=== PATIENT | female | born 1930 | race Caucasian/White ===

== ENCOUNTER 2016-08-26 11:28 | Inpatient (IN) | payer MEDICARE ==
[~2016-08-26] VITALS: Ht 162.6 cm; Wt 43.0 kg
[~2016-08-26 11:28] MED LIST: ACET-2321 PO; BISA10SU8 RECTALLY; BUTA-253 PO; CALC500T7 PO; DOCU-168 PO; GABA-336 PO; HYDR-4246 PO; LATA2.5D7 BOTH EYES; MAGN30OR PO; MAGN400O4 PO; ONDA-55 PO; ONDA4VIA23 IV; TRAM50TA4 PO
--- NOTE | 2016-08-26 11:30 | NUR ---
Admit Pt. admitted to Rm. 171 on IRU from the Medical Unit at this time. Pt. is pivoted to the bed x2 assist with gait belt. VS stable and pt. is on RA. Pt. is very pleasant and alert. Pt. belongings noted include glasses and one necklace. Bed alarm is on. Will continue to monitor.
--- OUTSIDE RECORDS SUMMARY | 2016-08-26 12:51 | XMS REPORT | Continuity of Care Document ---
Author Author [facility] Organization [facility] Address Unknown Phone Unavailable Support Name Relationship Address Phone YANE ALEXANDER MD Caregiver [address] [place] [address] Unavailable NILSA SANTOS MD Caregiver [address] [place] [address] [place] [address] Unavailable VINEET ADORNO MD Caregiver [address] [facility] [place] [address] Unavailable AYLEEN IZAGUIRRE MD Caregiver [address] [place] [id number] Unavailable ARIANA SWANN Next Of Kin [address] [place] [id number] Insurance Providers Guarantor Esperanza Laird Address [address] [place] [address] Email DENIED/NO TO PT PORT 16 Payer Medicare Policy Number [id number] Subscriber's Name Esperanza Laird Relationship 18 Self Payer [facility] Policy Number [id number] Subscriber's Name Esperanza Laird Relationship 18 Self Advance Directives Directive Response Recorded Date/Time Ordered Resuscitation Status Full Code 08/24/16 3:47am Problems Active Problems Medical Problem Onset Date Status Chronic back pain Unknown Chronic Compression fracture Unknown Acute Fall at home Unknown Acute Generalized weakness Unknown Acute HTN (hypertension) Unknown Chronic Hypokalemia Unknown Resolved Inability to perform activities of daily living Unknown Acute UTI (urinary tract infection) Unknown Acute Weakness of both lower extremities Unknown Acute Past Problems Medical Problem Onset Date Concussion Unknown Confusion Unknown Head injury Unknown Scalp laceration Unknown Weakness Unknown Medications Current Home Medications Medication Dose Units Route Directions Days Qty Instructions Start Date Acetaminophen (Tylenol) 325 Mg Tablet 325 Mg Oral Every 5 Hours as needed for Pain 30 Tablet 08/26/16 Bisacodyl 10 Mg Supp.rect 10 Mg Rectally Daily as needed for Constipation 30 08/26/16 Butalb/Acetaminophen/Caffeine (Lquuyh-Boqtwduv-Woav 50-325-40) 1 Each Tablet 1 Tab Oral Q6h/0300,0900,1500,2100 as needed for Headache 30 Tablet 08/26/16 Calcium Carbonate (Tums) 200 Mg Tab.chew 1,000 Mg Oral As Needed as needed for Dyspepsia 30 08/26/16 Docusate Sodium (Colace) 100 Mg Capsule 100 Mg Oral Twice A Day 30 Capsule 08/26/16 Gabapentin 100 Mg Capsule 200 Mg Oral Bedtime 08/23/16 Hydrocodone/Acetaminophen ([place] 5-325 Tablet) 5-325 Tablet 1 Tab Oral Every 6 Hours as needed for Pain 10 Tablet 08/23/16 Latanoprost 2.5 Ml Drops 1 Drop Both Eyes Bedtime 08/23/16 Magnesium Hydroxide (Milk Of Magnesia) 400 Mg/5 Ml Oral.susp 30 Ml Oral Daily as needed for Constipation 1 Bottle 08/26/16 Magnesium Hydroxide/Al Hydrox (Mag-Al Liquid) 30 Ml Suspension 30 Ml Oral Every 3 Hours as needed for Indigestion 1 Bottle 08/26/16 Ondansetron Hcl 4 Mg Tablet 4 Mg Oral Q6h/0300,0900,1500,2100 as needed for Nausea 10 Tablet 08/26/16 Ondansetron Hcl/Pf (Ondansetron Hcl 4 Mg/2 Ml Vial) 4 Mg/2 Ml Vial 4 Mg Intraven Every 6 Hours as needed for Nausea &/Or Vomiting 6 Vial Tramadol Hcl 50 Mg Tablet 50 Mg Oral Four Times Daily as needed for Pain 08/23/16 Past Home Medications Medication Directions Ordered Status Acetaminophen (Tylenol) 325 Mg Tablet, 06/07/15 Discontinued Amlodipine Besylate/Benazepril (Amlodipine-Benazepril 5-20 Mg) 1 Each Capsule, 1 Cap Oral Bedtime 03/03/14 Discontinued Aspirin (Aspirin Ec) 81 Mg Tablet.dr, 1 Tab Oral Daily 05/11/15 Discontinued Gabapentin 100 Mg Capsule, 1 Cap Oral Bedtime 05/10/15 Discontinued Naproxen Sodium (Aleve) 220 Mg Capsule, 1 Cap Oral Twice A Day 05/11/15 Discontinued Social History Social History Problem Response Recorded Date/Time Onset Date Status Reason for Hospitalization Concussion 2016 11:06am Not Applicable Not Applicable Hx Substance Use No 08/24/2016 1:57am Not Applicable Not Applicable Hx Alcohol Use No 08/24/2016 1:57am Not Applicable Not Applicable Has the pt used tobacco in the last 12 months No 06/09/2015 8:14pm Not Applicable Not Applicable Tobacco Usage none 06/07/2015 8:04pm Not Applicable Not Applicable Query Response Start Date Stop Date Smoking Status Never smoker Hospital Discharge Instructions Instructions: Care Instructions: Reason for Hospitalization: Concussion Discharge Diet: Regular Discharge Activity: Up with assistance, walker as needed Follow Up Appointments: Dr Izaguirre to Follow on IRU for rehab care Hopsitalist to follow for medical care Dr Santos 1 week post discharge from IRU Pending Lab / Results: No Pending Lab Wound/Incision Care: Keep stables clean and dry. Remove in 4-7 days Pain Scale Utilized to Educate Patient: 0-10 Pain Scale Pain Management/Treatment: [place]/Fioricet/tylenol as needed. Expected Signs/Symptoms: Improvement of strength and funcitional status. Decreasing nausea and dizziness. Notify Physician If: Temp >100.4. Intractable nausea/vomiting. During Business Hours:: Nursing staff at IRU After Business Hours:: Nursining staff at IRU Condition at time of discharge: Good Plan of Care Discharge Date 08/26/16 12:01pm Disposition 03 TO SNU NOT [facility] (SNF) Instructions/Education Provided Concussion (DC) Prescriptions See Medication Section Care Plan and Goals See Discharge Instructions Section Functional Status Query Response Date Recorded Mobility Status Ambulatory w/assist 2016 11:06am Assistive Devices Standard Walker 2016 11:06am Activity Limitations Weakness Pain 2016 11:06am Feeding Ability Independent 2016 11:06am Toileting Ability Assist 2016 11:06am Grooming Ability Assist 2016 11:06am Dressing Ability Assist 2016 11:06am Driving Ability Dependent 2016 11:06am Housework Ability Assist 2016 11:06am Meal Preparation Ability Assist 2016 11:06am Stair Climbing Ability Assist 2016 11:06am Ability to complete ADL's impeded by Impaired Mobility Change in Cognition 2016 11:06am Cognitive/Perceptual Impairments Impaired vision Acute confusion 2016 11:06am Visual Assistive Devices Glasses 2016 10:25am Preferred Method of Learning Listening 2016 10:25am Allergies, Adverse Reactions, Alerts Allergen Type Severity Reaction Status Last Updated Sulfamethoxazole Allergy Unknown UNKNOWN Active 08/23/16 Trimethoprim Allergy Unknown Active 08/23/16 Immunizations Immunization Event Date Type Not Given Reason Dose Number Lot Number Pick Up Man VIS Given Td (adult), adsorbed 08/23/16 Administered 1 [id number] zhouwu Query Response on File Recorded Date/Time Hx Influenza Vaccination Y 201406/09/15 8:14pm Hx Pneumococcal Vaccination No 06/09/15 8:14pm Hx Influenza Vaccination Y 201406/09/15 8:14pm Influenza Vaccine Hx 02/201608/24/16 1:21pm Tetanus Diptheria Vaccine History 08/23/16 08/24/16 1:57am Tdap Vaccine Hx UNKNOWN 08/23/16 2:46pm Vital Signs Acute Vital Signs Vital Response Date/Time Temperature (Fahrenheit) 98.0 deg F (96.8 - 99.1) 2016 7:39am Temperature (Calculated Celsius) 36.25412 degrees C (36.0 - 37.3) 2016 7:39am Pulse Rate (adult) 64 bpm (60 - 100) 2016 8:02am Respiratory Rate 18 breaths/min (10 - 20) 2016 8:02am O2 Sat by Pulse Oximetry 98 % (90 - 100) 2016 7:39am Oxygen Delivery Method Room Air 2016 7:39am Blood Pressure 175/75 mm Hg 2016 7:39am Blood Pressure Source Automatic Cuff 2016 7:39am Height (Feet) 5 feet 2016 10:46am Height (Inches) 4.00 inches 2016 10:46am Weight (Kilograms) 44.000 kg 2016 7:39am Body Mass Index (BMI) 16.0 08/24/2016 4:50am Results Laboratory Results Test Name Result Units Flags Reference Collection Date/Time Result Date/ Time Comments White Blood Count 9.5 T/MM3 4.5-11.0 08/24/2016 6:12am 08/24/2016 6: 31am Red Blood Count 3.49 M/MM3 L 4.00-5.20 08/24/2016 6:12am 08/24/2016 6: 31am Hemoglobin 9.7 GM/DL L 12-16 08/24/2016 6:1208/24/2016 6:31am Hematocrit 30.5 % L 36-46 08/24/2016 6:1208/24/2016 6:31am Mean Corpuscular Volume 87.4 UM3 80-100 08/24/2016 6:1208/24/2016 6: 31am Mean Corpuscular Hemoglobin 27.8 UUG 26-34 08/24/2016 6:122016 6:31am Mean Corpuscular Hemoglobin Concent 31.8 GM/DL 31-37 08/24/2016 6:1208/24/2016 6:31am RDW Standard Deviation 56.6 FL H 36.9-50.2 08/24/2016 6:08/24/2016 6:31am Platelet Count 158 T/MM3 130-400 08/24/2016 6:1208/24/2016 6:31am Mean Platelet Volume 11.4 UM3 9.4-12.4 08/24/2016 6:1208/24/2016 6: 31am Neutrophils % (Manual) 77.0 % H 33-66 08/24/2016 6:1208/24/2016 6: 52am Band Neutrophils % 3.0 % 0-6 08/24/2016 6:1208/24/2016 6:52am Lymphocytes % (Manual) 7.0 % L 23-45 08/24/2016 6:1208/24/2016 6: 52am Monocytes % (Manual) 13.0 % H 0-9.0 08/24/2016 6:1208/24/2016 6:52am Metamyelocytes % 4.0 % H 0-0 08/24/2016 1:46am 08/24/2016 2:18am Myelocytes % 1.0 % H 0-0 08/24/2016 1:46am 08/24/2016 2:18am Reactive Lymphocytes % 3.0 % H 0-0 08/24/2016 1:46am 08/24/2016 2:18am Band Neutrophils # 0.3 T/MM3 08/24/2016 6:12am 08/24/2016 6:52am Absolute Neutrophils (Manual) 7.3 T/MM3 1.8-7.7 08/24/2016 6:12am 08/24 6:52am Lymphocytes # (Manual) 0.7 T/MM3 L 1-4.8 08/24/2016 6:12am 08/24/2016 6: 52am Monocytes # (Manual) 1.2 T/MM3 H 0-0.8 08/24/2016 6:12am 08/24/2016 6: 52am Metamyelocytes # 0.5 T/MM3 08/24/2016 1:46am 08/24/2016 2:18am Myelocytes # 0.1 T/MM3 08/24/2016 1:46am 08/24/2016 2:18am Reactive Lymphocytes # 0.3 T/MM3 H 0-0 08/24/2016 1:46am 08/24/2016 2: 18am Nucleated Red Blood Cells 1 08/24/2016 1:46am 08/24/2016 2:18am Red Cell Morphology Comment ABNORMAL 08/24/2016 6:12am 08/24/2016 6 :52am Anisocytosis 1+ 08/24/2016 6:12am 08/24/2016 6:52am Poikilocytosis 1+ 08/24/2016 6:12am 08/24/2016 6:52am Hypochromasia 1+ 08/24/2016 1:46am 08/24/2016 2:18am Hardeep Cells 1+ 08/24/2016 6:12am 08/24/2016 6:52am Helmet Cells 1+ 08/24/2016 6:12am 08/24/2016 6:52am Icterus Index < 2 0-7 08/24/2016 6:1208/24/2016 6:35am Chemistry Specimen Hemolysis < 15 0-25 08/24/2016 6:1208/24/2016 6 :35am 0-25: Specimen Exhibited No Hemolysis. Turbidity < 20 0-20 08/24/2016 6:12am 08/24/2016 6:35am Sodium Level 136 MEQ/L 134-144 08/24/2016 6:12am 08/24/2016 6:35am Potassium Level 3.6 MEQ/L 3.6-5 08/24/2016 6:12am 08/24/2016 6:35am Chloride Level 102 MEQ/L 98-107 08/24/2016 6:1208/24/2016 6:35am Carbon Dioxide Level 23 MEQ/L 22-30 08/24/2016 6:1208/24/2016 6: 35am Anion Gap 11 MEQ/L 5-15 08/24/2016 6:1208/24/2016 6:35am Blood Urea Nitrogen 14.0 MG/DL 7-17 08/24/2016 6:1208/24/2016 6: 35am Creatinine 0.6 MG/DL L 0.7-1.2 08/24/2016 6:1208/24/2016 6:35am BUN/Creatinine Ratio 23 RATIO 6-26 08/24/2016 6:1208/24/2016 6:35am Glomerular Filtration Rate Calc 95 08/24/2016 6:1208/24/2016 6: 35am Glucose Level 113 MG/DL H 65-110 08/24/2016 6:1208/24/2016 6:35am Calculated Osmolality 264 MOSM/KG 261-280 08/24/2016 6:08/24/2016 6:35am Calcium Level 8.5 MG/DL 8.4-10.2 08/24/2016 6:1208/24/2016 6:35am Total Bilirubin 1.30 MG/DL 0.20-1.30 08/24/2016 1:4608/24/2016 1: 59am Alkaline Phosphatase 68 U/L 38-126 08/24/2016 1:4608/24/2016 1:59am Total Protein 6.8 G/DL 6.3-8.2 08/24/2016 1:4608/24/2016 1:59am Albumin 4.1 G/DL 3.5-5.0 08/24/2016 1:4608/24/2016 1:59am Globulin 2.7 G/DL 2.4-3.6 08/24/2016 1:4608/24/2016 1:59am Albumin/Globulin Ratio 1.5 RATIO 1.1-2.2 08/24/2016 1:46am 08/24/2016 1 :59am Aspartate Amino Transf (AST/SGOT) 36 U/L 14-36 08/24/2016 1:46am 2016 1:59am Alanine Aminotransferase (ALT/SGPT) 24 U/L 9-52 08/24/2016 1:46am 08/24 1:59am Plasma Lactate 2.1 MMOL/L 0.6-2.2 08/24/2016 1:46am 08/24/2016 1:58am Urine Collection Type CLEANCATCH-MIDSTREAM 08/24/2016 3:02am 2016 3:04am Urine Color YELLOW YELLOW 08/24/2016 3:02am 08/24/2016 3:04am Urine Turbidity CLEAR CLEAR 08/24/2016 3:02am 08/24/2016 3:04am Urine Specific [place] 1.015 1.015-1.025 08/24/2016 3:02am 2016 3:04am Urine pH 7.0 5.0-8.0 08/24/2016 3:02am 08/24/2016 3:04am Urine Leukocyte Esterase NEGATIVE NEGATIVE 08/24/2016 3:02am 2016 3:04am Urine Nitrite NEGATIVE NEGATIVE 08/24/2016 3:02am 08/24/2016 3:04am Urine Protein NEGATIVE NEGATIVE 08/24/2016 3:02am 08/24/2016 3:04am Urine Glucose (UA) NEGATIVE NEGATIVE 08/24/2016 3:02am 08/24/2016 3: 04am Urine Ketones 1+ A NEGATIVE 08/24/2016 3:02am 08/24/2016 3:04am Urine Urobilinogen 0.2 EU/DL NORMAL 08/24/2016 3:02am 08/24/2016 3: 04am Urine Bilirubin NEGATIVE NEGATIVE 08/24/2016 3:02am 08/24/2016 3: 04am Urine Blood TRACE-LYSED A NEGATIVE 08/24/2016 3:02am 08/24/2016 3: 04am Urinalysis Comment MICROSCOPIC NOT IND. 08/24/2016 3:02am 2016 3:04am Name: ESPERANZA LAIRD Unit #: [id number] : 1930 Sex: F Admit Date: 08/24/16 Loc / Svc: MED Discharge Date: DIAGNOSTIC IMAGING REPORT Report #: [id number] [facility] LUZ Smith Indication: ITS.REASON: Continued confusion after fall (interval change) PROCEDURE: CT HEAD W/O CONTRAST: Encounter: Initial Comparison: 08/24/2016 Technique: Axial CT images through the head were performed without contrast. Iterative Reconstruction dose reducing technique was utilized. FINDINGS: The ventricles are of normal size, shape, and contour for the patient's age. There are scattered areas of low attenuation in the white matter which most likely represent changes from chronic microvascular ischemia. The brainstem, cerebellum, and cerebral hemispheres otherwise have a normal morphology and CT attenuation. There is no evidence of midline displacement. No hemorrhage, signs of acute territorial stroke, mass effect, mass lesions, or edema is evident. IMPRESSION: 1. Severe cerebral and cerebellar atrophy. 2. Chronic microvascular ischemia. 3. No evidence of acute intracranial abnormality. . Procedures Procedure Status Date Provider(s) Extremity study Completed 08/07/16 Rpr s/n/ax/gen/trnk 2.5cm/< Completed 08/23/[address] head/brain w/o dye Completed 08/23/16 Immunization admin Completed 08/23/16 Td vacc no presv 7 yrs+ im Completed 08/23/16 Emergency dept visit Completed 08/23/16 Encounters Encounter Location Arrival/Admit Date Discharge/Depart Date Attending Provider Discharged Inpatient [facility] 08/24/16 3:43am 08/26/16 12:01pm AYLEEN IZAGUIRRE MD Departed Emergency Room [facility] 08/23/16 1:51pm 08/23/16 4: 40pm AYLEEN IZAGUIRRE MD Registered Clinic [facility] 08/07/16 3:45pm NILSA SANTOS MD
[2016-08-26 13:18] VITALS: Ht 162.6 cm; Wt 43.0 kg
[2016-08-26 13:27] VITALS: BP 154/75; PULSE 67; RESP 18; TEMP 97.5; O2SAT 97
[2016-08-26] MEDS ORDERED: ONDANSETRON 4mg/2ml INJECTION IV PRN (15:00)
[2016-08-26] MEDS ORDERED: ACETAMINOPHEN 325 MG TABLET PO PRN (15:00)
[2016-08-26] MEDS ORDERED: BUTALBITAL/APAP/CAFFEINE TABLET PO PRN (15:00)
[2016-08-26] MEDS: HYDROCODONE/APAP 5 mg/325 mg TABLET PO PRN (15:10)
--- NOTE | 2016-08-26 15:27 | STDAILYN ---
ST Daily Note Date/Time DATE: 08/26/16 TIME: 14:55 Subjective Comment Pt was confused and attempting to get out of bed when DIRECTOR [employer] entered the room. Pt was reoriented and showed how to use the call light. She was confused but alert. Orientations: Person, Alert, Cooperative Chief Complaint: encephalopathy, post concussive syndrome Pain: Yes (My bottom hurts, I need a pain pill.) Was Patient Education Provided: Yes Person(s) Educated: Patient Education Subject: Treatment Plan Instruction Understanding Demo: Pt. verbalizes understand *Speech Therapy Impressions Pt was alert and repositioned in bed for assessment. Subtests I-V of [place] Information Processing Assessment were administered. Pt responded to conversational level speech in a quiet one to one setting. Results of assessment indicated profound defict in immediate memory, severe impairment in spatial orientation. Recent memory, time orientation for recent and remote memory were moderately impaired. Pt became fatigue and reported that she could not answer any more questions. RIPA will be completed on 08/27/16. ST Treatment Plan: Cognitive Linguistic Tx ST Treatment Plan Frequency: five times per week (30 minutes) Treatment Plan Duration: one week Plan of Care Comment: Complete evaluation and add goals on 08/27. Start Treatment 1: 14:15 (1440) Stop Treatment 1: 14:40 Treatment Duration : ST Treatment Charge: Speech Eval Minutes of Individual Therapy: 25 ST FIM Comprehension Ability: 3 Moderate Assistance Social Interaction: 4 Minimal Assistance Memory: 2 Maximum Assistance Expression Ability: 6 Modified [place] MEGAN ROBERTSON MS [facility]-DIRECTOR [employer] Aug 26, 2016 15:04
[2016-08-26 16:32] VITALS: BP 129/66; PULSE 79; RESP 18; TEMP 97.8; O2SAT 96
--- NOTE | 2016-08-26 19:22 | NUR ---
Shift summary Patient transferred with mod assist x1 to [facility] this shift for toileting. Wears pull up. Hx of incontinence of bladder at home mostly at night. Denies the need for bladder retraining program at this time. Alert to self, time, Occasional confusion of place, but easily reoriented. Feeds self regular diet. Wears glasses. Daughter and family visited this afternoon. Daughter stated she would bring clothing tomorrow.
[2016-08-26] MEDS: TRAMADOL 50 MG TABLET PO PRN (19:58)
[2016-08-26] MEDS: DOCUSATE SODIUM 100 MG CAPSULE PO SCH (20:01)
[2016-08-26] MEDS: GABAPENTIN 100 MG CAPSULE PO SCH (20:02)
[2016-08-26] MEDS: LATANOPROST 0.005% EYE DROPS 2.5 ML BOTTLE BOTH EYES SCH (20:03)
[2016-08-26 20:48] VITALS: BP 125/67; PULSE 67; RESP 16; TEMP 98.1; O2SAT 95
[2016-08-26] MEDS ORDERED: DOCUSATE SODIUM 100 MG CAPSULE PO SCH (21:00)
[2016-08-26 22:54] VITALS: PULSE 67; RESP 16
[2016-08-27] VITALS (7 sets, daily range): BP systolic 133–164; BP diastolic 72–85; PULSE 66–70; RESP 16–18; TEMP 97.6–98.1; O2SAT 96–97
--- NOTE | 2016-08-27 01:31 | NUR ---
Chart Check 24 hour chart check completed
[2016-08-27] MEDS: HYDROCODONE/APAP 5 mg/325 mg TABLET PO PRN ×3 (04:44→18:54)
[2016-08-27 05:31] LABS: HCT - HEMATOCRIT 32.2 % (36-46); HGB - HEMOGLOBIN 10.1 GM/DL (12-16); MEAN CORPUSCULAR HGB 27.8 UUG (26-34); MEAN CORPUSCULAR HGB CONC(MCHC 31.4 GM/DL (31-37); MEAN CORPUSCULAR VOLUME 88.7 UM3 (80-100); MEAN PLATELET VOLUME 11.5 UM3 (9.4-12.4); RED BLOOD COUNT 3.63 M/MM3 (4.00-5.20); WBC - WHITE BLOOD COUNT 6.5 T/MM3 (4.5-11.0)
[2016-08-27 05:43] LABS: ANION GAP 10 MEQ/L (5-15); BUN/CREATININE RATIO 10 RATIO (6-26); CALCIUM 8.7 MG/DL (8.4-10.2); CHLORIDE 100 MEQ/L (98-107); CO2 - CARBON DIOXIDE 28 MEQ/L (22-30); CREATININE 0.6 MG/DL (0.7-1.2); GLOMERULAR FILTRATION RATE 94; GLUCOSE 103 MG/DL (65-110); SODIUM 138 MEQ/L (134-144)
--- NOTE | 2016-08-27 06:44 | NUR ---
Summary Patient had some confusion during the beginning of the shift. She was reorientated to place and bed alarms and did well the rest of the night. She used her call light appropriately. She was incontinent of urine times one. She required max assist sitting up on the side of the bed from laying, and minimal standing. She was then able to ambulate to restroom and sit on toilet. Staff had to assist with incontinence management. She is currently sitting in bed, drinking coffee and watching TV. Bed alarm is on, side rails up times two and call light is within reach.
[2016-08-27 07:24] LABS: BAND NEUTROPHILS # 0.1 T/MM3; EOSINOPHILS # (MANUAL) 0.1 T/MM3 (0-0.5); LYMPHOCYTES # (MANUAL) 1.4 T/MM3 (1-4.8); MONOCYTES # (MANUAL) 0.9 T/MM3 (0-0.8); NEUTROPHILS #(MANUAL)-ABSOLUTE 3.9 T/MM3 (1.8-7.7); TOTAL CELLS COUNTED 100 %
[2016-08-27 07:25] LABS: ANISOCYTOSIS 1+; POIKILOCYTOSIS 3+
[2016-08-27 07:26] LABS: BURR CELLS 2+; HELMET CELLS 2+; SCHISTOCYTES 1+
[2016-08-27] MEDS ORDERED: POTASSIUM CHLORIDE 20 MEQ TABLET PO ONE (08:15)
[2016-08-27] MEDS: TRAMADOL 50 MG TABLET PO PRN ×2 (10:03→16:33)
[2016-08-27] MEDS: DOCUSATE SODIUM 100 MG CAPSULE PO SCH ×2 (10:03→20:36)
--- NOTE | 2016-08-27 10:56 | CONSPD ---
HOWARD RUVALCABA V M60A2 [employer] 08/27/16 1041: Consultation Info Date DATE: 08/27/16 TIME: 10:34 Date of Consultation: Aug 27, 2016 Attending Physician: Kandis Reason for Consultation: medical management HPI - Adult Date DATE: 08/27/16 TIME: 10:34 General Chief Complaint: encephalopathy, post concussive syndrome, head injury History of Present Illness Patient is a pleasant 86-year-old female who is well known to the hospitalist services as she was recently admitted on 08/24/16 following a head injury, scalp laceration and encephalopathy. She was monitored, pain was controlled and neurovascular checks were performed routinely. PT and OT were consulted for evaluation and treatment of strength and function. She was evaluated by Dr. Cobb, given her postconcussive syndrome, ongoing headaches with scalp laceration. Although the encephalopathy has mildly improved, she continues to have mild dizziness, headaches, likely secondary to postconcussive syndrome. Given the patient is otherwise independent, she was screened and accepted for the inpatient rehabilitation unit for more aggressive therapy to improve function and strength. Morning labs were reviewed WBC count 6.5, hemoglobin 10.1, hematocrit 32.2, platelet count 220. Sodium is 138, potassium 3.0, BUN 6, creatinine 0.6. Vital signs this morning temperature 97.9, pulse 68, respiration rate 18, blood pressure 134/85, room air saturations 97%. Sana is seen this morning while up in the wheelchair brushing her hair at the sink. She is alert and oriented and states that overall she is feeling better today. She currently denies having headache currently. [place] are intact to posterior head without evidence of drainage or erythema. Past Medical History Past Medical History HTN PVD Chronic UTI HTN Chronic back pain with hx of compression fracture Surgical History Patient's Surgical History: kyphoplasty Current Medications Home Meds Active Scripts Ondansetron HCl (Ondansetron HCl) 4 Mg Tablet, 4 MG PO Q6HR Y for NAUSEA, #10 TAB Prov:WILLIAM MATHIAS MD 08/26/16 Ondansetron HCl/Pf (Ondansetron HCl 4 mg/2 ml Vial) 4 Mg/2 Ml Vial, 4 MG IV Q6H Y for NAUSEA &/OR VOMITING, #6 VIAL Prov:WILLIAM MATHIAS MD 08/26/16 Magnesium Hydroxide/Al Hydrox (Mag-Al Liquid) 30 Ml Suspension, 30 ML PO Q3H Y for INDIGESTION, #1 BOTTLE Prov:WILLIAM MATHIAS MD 08/26/16 Magnesium Hydroxide (Milk of Magnesia) 400 Mg/5 Ml Oral.susp, 30 ML PO DAILY Y for CONSTIPATION, #1 BOTTLE Prov:WILLIAM MATHIAS MD 08/26/16 Docusate Sodium (Colace) 100 Mg Capsule, 100 MG PO BID, #30 CAP Prov:WILLIAM MATHIAS MD 08/26/16 Calcium Carbonate (Tums) 200 Mg Tab.chew, 1000 MG PO PRN Y for DYSPEPSIA, #30 Prov:WILLIAM MATHIAS MD 08/26/16 Bisacodyl (Bisacodyl) 10 Mg Supp.rect, 10 MG RECTALLY DAILY Y for CONSTIPATION, #30 Prov:WILLIAM MATHIAS MD 08/26/16 Butalb/Acetaminophen/Caffeine (Dzioik-Zjtvnabq-Abbx 50-325-40) 1 Each Tablet, 1 TAB PO Q6HR Y for HEADACHE, #30 TAB Prov:WILLIAM MATHIAS MD 08/26/16 Acetaminophen (Tylenol) 325 Mg Tablet, 325 MG PO Q5H Y for PAIN, #30 TAB Prov:WILLIAM MATHIAS MD 08/26/16 Hydrocodone/Acetaminophen ([place] 5-325 Tablet) 5-325 Tablet, 1 TAB PO Q6H Y for PAIN, #10 TAB 0 Refills Prov:KAROLINA JACQUES APRN 08/23/16 Reported Medications Latanoprost (Latanoprost) 2.5 Ml Drops, 1 DROP BOTH EYES HS 08/23/16 Tramadol HCl (Tramadol HCl) 50 Mg Tablet, 50 MG PO QID Y for PAIN 08/23/16 Gabapentin (Gabapentin) 100 Mg Capsule, 200 MG PO HS 08/23/16 Allergies: Coded Allergies: sulfamethoxazole (Unverified Allergy, Unknown, UNKNOWN, 08/23/16) trimethoprim (Unverified Allergy, Unknown, 08/23/16) Family History Family History: non contributory Social History Smoking Status: Never smoker Does patient use chewing tobac: No Second Hand Exposure: No Substance Use Type: does not use Alcohol Intake: none Current Occupational Status: retired Advance Directives: Yes DPOA for Healthcare Only Social History Comments PCP Dr Santos Review of Systems All Other Systems All Other Systems: Reviewed (remainder of 10-point ROS Neg.) Comments Patient denies ROS this morning Physical Exam General General Nourishment: well nourished, well developed Vital Signs Vital Signs Date Time Temp Pulse Resp B/P Pulse Ox O2 Delivery O2 Flow Rate FiO2 08/27/16 08:06 97.9 68 18 134/85 97 Room Air Height (Feet): 5 Height (Inches): 4.00 Eyes Brief: FOUND: EOMI, PERRL ENMT Brief: FOUND: mucosa moist, normal dentition, NOT FOUND: pharnyx erythema Respiratory Brief: FOUND: clear all [place], equal bilaterally Cardiovascular (brief) Cardiac Brief: FOUND: regular rate, regular rhythm, NOT FOUND: murmur, pedal edema Abdomen (brief) Abdominal Brief: FOUND: BS normo active x4, soft, NOT FOUND: distended, tender Musculoskeletal (brief) Comments [place] intact to posterior head Integumentary (brief) Integumentary Brief: FOUND: dry, pink, warm Neurologic (brief) Neurological Brief: FOUND: cranial 2-12 intact, motor, sensory Neurologic RN Documented GCS Eye Opening: Verbal: Motor: Total: Psychiatric (brief) FOUND: alert, attentive, normal affect, oriented Laboratory Laboratory Tests Test 08/27/16 04:53 White Blood Count 6.5T/MM3 Red Blood Count 3.63M/MM3 Hemoglobin 10.1GM/DL Hematocrit 32.2% Mean Corpuscular Volume 88.7UM3 Mean Corpuscular Hemoglobin 27.8UUG Mean Corpuscular Hemoglobin Concent 31.4GM/DL RDW Standard Deviation 57.6FL Platelet Count 220T/MM3 Mean Platelet Volume 11.5UM3 Immature Granulocyte % (Auto) % Neutrophils (%) (Auto) % Lymphocytes (%) (Auto) % Monocytes (%) (Auto) % Eosinophils (%) (Auto) % Basophils (%) (Auto) % Absolute Immature Granulocyte (auto T/MM3 Absolute Neutrophils (auto) T/MM3 Absolute Lymphocytes (auto) T/MM3 Absolute Monocytes (auto) T/MM3 Absolute Eosinophils (auto) T/MM3 Absolute Basophils (auto) T/MM3 Neutrophils % (Manual) 60.0% Band Neutrophils % 2.0% Lymphocytes % (Manual) 22.0% Monocytes % (Manual) 14.0% Eosinophils % (Manual) 2.0% Absolute Neutrophils (Manual) 3.9T/MM3 Band Neutrophils # 0.1T/MM3 Lymphocytes # (Manual) 1.4T/MM3 Monocytes # (Manual) 0.9T/MM3 Eosinophils # (Manual) 0.1T/MM3 Poikilocytosis 3+ Anisocytosis 1+ Helmet Cells 2+ [place] Cells 2+ Schistocytes 1+ Red Cell Morphology Comment Abnormal Turbidity < 20 Sodium Level 138MEQ/L Potassium Level 3.0MEQ/L Chloride Level 100MEQ/L Carbon Dioxide Level 28MEQ/L Anion Gap 10MEQ/L Blood Urea Nitrogen 6.0MG/DL Creatinine 0.6MG/DL Glomerular Filtration Rate Calc 94 BUN/Creatinine Ratio 10RATIO Glucose Level 103MG/DL Calculated Osmolality 264MOSM/KG Calcium Level 8.7MG/DL Icterus Index < 2 Chemistry Specimen Hemolysis < 15 Impression/Recommendation Problems: (1) Encephalopathy Status: Acute (2) Postconcussive syndrome Status: Acute (3) Inability to perform activities of daily living Status: Acute (4) Scalp laceration Status: Acute (5) HTN (hypertension) Status: Chronic (6) Chronic back pain Status: Chronic (7) Compression fracture Status: Chronic Recommendation Agree with admission to IRU for encephalopathy, gait instability, was concussive syndrome with scalp laceration. Hospitalist service is medically managing patient for PCP Dr Santos while at [facility] [place]. Did speak with nurse at [facility] regarding possible vertebroplasty. This is a possibility as an outpatient, however, it is not a option will patient is currently on the rehabilitation unit. We will touch base with [facility] next week on Friday 09/01 to discuss possible discharge date. At that time [facility] can schedule a outpatient Vertebroplasty if indicated. Vertebral plasty options would be 09/01 through 09/05, next available date would be Friday 09/15. Given Hypokalemia will give one time dose of 40 meq then 20meq daily Recheck BMP tomorrow to recheck potassium Continue with tramadol as needed for pain control and Fioricet for headaches Encourage work with PT/OT for ongoing therapy, improve strength and function. The hospitalist services will continue to follow patient medically manage covering for [facility] until discharged. WILLIAM MATHIAS MD 08/27/16 1828: Past Medical History Current Medications Home Meds Active Scripts Ondansetron HCl (Ondansetron HCl) 4 Mg Tablet, 4 MG PO Q6HR Y for NAUSEA, #10 TAB Prov:WILLIAM MATHIAS MD 08/26/16 Ondansetron HCl/Pf (Ondansetron HCl 4 mg/2 ml Vial) 4 Mg/2 Ml Vial, 4 MG IV Q6H Y for NAUSEA &/OR VOMITING, #6 VIAL Prov:WILLIAM MATHIAS MD 08/26/16 Magnesium Hydroxide/Al Hydrox (Mag-Al Liquid) 30 Ml Suspension, 30 ML PO Q3H Y for INDIGESTION, #1 BOTTLE Prov:WILLIAM MATHIAS MD 08/26/16 Magnesium Hydroxide (Milk of Magnesia) 400 Mg/5 Ml Oral.susp, 30 ML PO DAILY Y for CONSTIPATION, #1 BOTTLE Prov:WILLIAM MATHIAS MD 08/26/16 Docusate Sodium (Colace) 100 Mg Capsule, 100 MG PO BID, #30 CAP Prov:WILLIAM MATHIAS MD 08/26/16 Calcium Carbonate (Tums) 200 Mg Tab.chew, 1000 MG PO PRN Y for DYSPEPSIA, #30 Prov:WILLIAM MATHIAS MD 08/26/16 Bisacodyl (Bisacodyl) 10 Mg Supp.rect, 10 MG RECTALLY DAILY Y for CONSTIPATION, #30 Prov:WILLIAM MATHIAS MD 08/26/16 Butalb/Acetaminophen/Caffeine (Fkrdet-Brfyvwrb-Imly 50-325-40) 1 Each Tablet, 1 TAB PO Q6HR Y for HEADACHE, #30 TAB Prov:WILLIAM MATHIAS MD 08/26/16 Acetaminophen (Tylenol) 325 Mg Tablet, 325 MG PO Q5H Y for PAIN, #30 TAB Prov:WILLIAM MATHIAS MD 08/26/16 Hydrocodone/Acetaminophen ([place] 5-325 Tablet) 5-325 Tablet, 1 TAB PO Q6H Y for PAIN, #10 TAB 0 Refills Prov:KAROLINA JACQUES APRN 08/23/16 Reported Medications Latanoprost (Latanoprost) 2.5 Ml Drops, 1 DROP BOTH EYES HS 08/23/16 Tramadol HCl (Tramadol HCl) 50 Mg Tablet, 50 MG PO QID Y for PAIN 08/23/16 Gabapentin (Gabapentin) 100 Mg Capsule, 200 MG PO HS 08/23/16 Allergies: Coded Allergies: sulfamethoxazole (Unverified Allergy, Unknown, UNKNOWN, 08/23/16) trimethoprim (Unverified Allergy, Unknown, 08/23/16) Impression/Recommendation Problems: (1) Encephalopathy Status: Acute (2) Postconcussive syndrome Status: Acute (3) Inability to perform activities of daily living Status: Acute (4) Scalp laceration Status: Acute (5) HTN (hypertension) Status: Chronic (6) Chronic back pain Status: Chronic (7) Compression fracture Status: Chronic (8) Hypokalemia Status: Acute Assessment & Plan: 08/27: Potassium 3.0. Recommendation Have independently interviewed and examined pt. Chart reviewed. Case discussed with my [id number] [employer]. Above care plan developed with my supervision; agree with above. Doing well this evening. Tolerated therapy-hard work but did well. Did develop significant pain/spasm to back - right side, from shoulder blade to spine. Topical heat helped. Breathing well. No nausea or ab pain. Lungs; clear CV: regular MSE: awake alert appropriate Plan: Agree with IRU to maximize functional status. Replace potassium. Heating pain as needed for pain. Encourage therapy. Monitor lab. Medically stable for IRU floor activities. HOWARD RUVALCABA APRN Aug 27, 2016 10:41 WILLIAM MATHIAS MD Aug 27, 2016 18:28
--- NOTE | 2016-08-27 11:16 | HPPDOC ---
HPI Date DATE: 08/27/16 TIME: 11:09 General Chief Complaint: encephalopathy, post concussive syndrome, head injury History of Present Illness 86 yo female with post concussive sx, unable to return home to manage adl's. On 08/24, she fell and received a head laceration, was treated and [place] [facility] [place] and Hospitalist service treated her for Post Concussive sx. She is still weak, having some confusion and unable to manage her daily activities of living. Past Medical History Past Medical History HTN PVD Chronic UTI HTN Chronic back pain with hx of compression fracture Surgical History Patient's Surgical History: kyphoplasty Current Medications Home Meds Active Scripts Ondansetron HCl (Ondansetron HCl) 4 Mg Tablet, 4 MG PO Q6HR Y for NAUSEA, #10 TAB Prov:WILLIAM MATHIAS MD 08/26/16 Ondansetron HCl/Pf (Ondansetron HCl 4 mg/2 ml Vial) 4 Mg/2 Ml Vial, 4 MG IV Q6H Y for NAUSEA &/OR VOMITING, #6 VIAL Prov:WILLIAM MATHIAS MD 08/26/16 Magnesium Hydroxide/Al Hydrox (Mag-Al Liquid) 30 Ml Suspension, 30 ML PO Q3H Y for INDIGESTION, #1 BOTTLE Prov:WILLIAM MATHIAS MD 08/26/16 Magnesium Hydroxide (Milk of Magnesia) 400 Mg/5 Ml Oral.susp, 30 ML PO DAILY Y for CONSTIPATION, #1 BOTTLE Prov:WILLIAM MATHIAS MD 08/26/16 Docusate Sodium (Colace) 100 Mg Capsule, 100 MG PO BID, #30 CAP Prov:WILLIAM MATHIAS MD 08/26/16 Calcium Carbonate (Tums) 200 Mg Tab.chew, 1000 MG PO PRN Y for DYSPEPSIA, #30 Prov:WILLIAM MATHIAS MD 08/26/16 Bisacodyl (Bisacodyl) 10 Mg Supp.rect, 10 MG RECTALLY DAILY Y for CONSTIPATION, #30 Prov:WILLIAM MATHIAS MD 08/26/16 Butalb/Acetaminophen/Caffeine ([place]-Zlibhtmv-Ehmg 50-325-40) 1 Each Tablet, 1 TAB PO Q6HR Y for HEADACHE, #30 TAB Prov:WILLIAM MATHIAS MD 08/26/16 Acetaminophen (Tylenol) 325 Mg Tablet, 325 MG PO Q5H Y for PAIN, #30 TAB Prov:WILLIAM MATHIAS MD 08/26/16 Hydrocodone/Acetaminophen ([place] 5-325 Tablet) 5-325 Tablet, 1 TAB PO Q6H Y for PAIN, #10 TAB 0 Refills Prov:KAROLINA JACQUES APRN 08/23/16 Reported Medications Latanoprost (Latanoprost) 2.5 Ml Drops, 1 DROP BOTH EYES HS 08/23/16 Tramadol HCl (Tramadol HCl) 50 Mg Tablet, 50 MG PO QID Y for PAIN 08/23/16 Gabapentin (Gabapentin) 100 Mg Capsule, 200 MG PO HS 08/23/16 Allergies: Coded Allergies: sulfamethoxazole (Unverified Allergy, Unknown, UNKNOWN, 08/23/16) trimethoprim (Unverified Allergy, Unknown, 08/23/16) Family History Family History: non contributory Social History Smoking Status: Never smoker Does patient use chewing tobac: No Second Hand Exposure: No Substance Use Type: does not use Alcohol Intake: none Current Occupational Status: retired Advance Directives: Yes DPOA for Healthcare Only Review of Systems Constitutional: REPORTS: dizziness, weakness Musculoskeletal General: pain (back, chronic) Neurological General: change in strength, headache, see HPI, vertigo All Other Systems All Other Systems: Reviewed Physical Exam General General Nourishment: thin, adult General Body Habitus: well groomed Vital Signs Vital Signs Date Time Temp Pulse Resp B/P Pulse Ox O2 Delivery O2 Flow Rate FiO2 08/27/16 08:15 68 18 08/27/16 08:06 97.9 134/85 97 Room Air Height (Feet): 5 Height (Inches): 4.00 Telemetry Rhythm: Sinus Rhythm Eyes Brief: FOUND: EOMI, PERRL ENMT Brief: FOUND: TM clear, TM good light reflex Neck Brief: NOT FOUND: adenopathy, carotid bruits, thyromegaly Respiratory Brief: FOUND: clear all [place], equal bilaterally, NOT FOUND: rales Cardiovascular (brief) Cardiac Brief: FOUND: regular rate, regular rhythm, NOT FOUND: pedal edema Capillary Refill: <2 sec Abdomen (brief) Abdominal Brief: FOUND: BS normo active x4, soft, NOT FOUND: tender Neurologic (brief) Neurological Brief: FOUND: cranial 2-12 intact, motor, sensory Comments Generalized lower ext and upper ext weakness. Neurologic RN Documented GCS Eye Opening: Verbal: Motor: Total: Laboratory Laboratory Tests Test 08/27/16 04:53 White Blood Count 6.5T/MM3 Red Blood Count 3.63M/MM3 Hemoglobin 10.1GM/DL Hematocrit 32.2% Mean Corpuscular Volume 88.7UM3 Mean Corpuscular Hemoglobin 27.8UUG Mean Corpuscular Hemoglobin Concent 31.4GM/DL RDW Standard Deviation 57.6FL Platelet Count 220T/MM3 Mean Platelet Volume 11.5UM3 Immature Granulocyte % (Auto) % Neutrophils (%) (Auto) % Lymphocytes (%) (Auto) % Monocytes (%) (Auto) % Eosinophils (%) (Auto) % Basophils (%) (Auto) % Absolute Immature Granulocyte (auto T/MM3 Absolute Neutrophils (auto) T/MM3 Absolute Lymphocytes (auto) T/MM3 Absolute Monocytes (auto) T/MM3 Absolute Eosinophils (auto) T/MM3 Absolute Basophils (auto) T/MM3 Neutrophils % (Manual) 60.0% Band Neutrophils % 2.0% Lymphocytes % (Manual) 22.0% Monocytes % (Manual) 14.0% Eosinophils % (Manual) 2.0% Absolute Neutrophils (Manual) 3.9T/MM3 Band Neutrophils # 0.1T/MM3 Lymphocytes # (Manual) 1.4T/MM3 Monocytes # (Manual) 0.9T/MM3 Eosinophils # (Manual) 0.1T/MM3 Poikilocytosis 3+ Anisocytosis 1+ Helmet Cells 2+ [place] Cells 2+ Schistocytes 1+ Red Cell Morphology Comment Abnormal Turbidity < 20 Sodium Level 138MEQ/L Potassium Level 3.0MEQ/L Chloride Level 100MEQ/L Carbon Dioxide Level 28MEQ/L Anion Gap 10MEQ/L Blood Urea Nitrogen 6.0MG/DL Creatinine 0.6MG/DL Glomerular Filtration Rate Calc 94 BUN/Creatinine Ratio 10RATIO Glucose Level 103MG/DL Calculated Osmolality 264MOSM/KG Calcium Level 8.7MG/DL Icterus Index < 2 Chemistry Specimen Hemolysis < 15 Concerns For Adverse Events Post concussive sx with encephalopathy requiring admit to IRU for medical supervision during initial PT and OT. Assessment & Plan Problems: (1) Encephalopathy Status: Acute Assessment & Plan: Neurology following. (2) Postconcussive syndrome Status: Acute Assessment & Plan: Dizziness, weakness, confusion. To work with PT and OT and possible Speech Therapy for eval and plan of care regarding strengthening and safety issues. (3) Weakness of both lower extremities Status: Acute Assessment & Plan: PT adn OT to work with pt. (4) UTI (urinary tract infection) Status: Acute Code Status Full Code, unverified Interventions to Obtain Goals PT Treatment Plan: Therapeutic Exercise, Gait Training, Functional Activities , Patient/Family Education, Balance/Proprioception OT Treatment Plan: ADL's (basic care), Ther. Exercise for ADL's, UE Functional Training, Balance Training, Pt./Family Education ST Treatment Plan: Cognitive Linguistic Tx Hospital Course Summary Disclaimer The hospital course summary below is not to be considered part of the above Progress Note. AYLEEN IZAGUIRRE MD Aug 27, 2016 11:13
--- NOTE | 2016-08-27 11:18 | IRU24PDOC ---
24 Hour Post Admission Eval Relevant Changes Relevant Changes: No I have reviewed the patient's information and concur with the finding and results of the pre-admission screen. Certification I certify the patient for rehabilitation. Patient Condition Prior Medical Conditions: (1) Encephalopathy Status: Acute Additional Information: Neurology following. (2) Postconcussive syndrome Status: Acute Additional Information: Dizziness, weakness, confusion. To work with PT and OT and possible Speech Therapy for eval and plan of care regarding strengthening and safety issues. (3) Weakness of both lower extremities Status: Acute Additional Information: PT adn OT to work with pt. (4) UTI (urinary tract infection) Status: Acute Current Medical Conditions: (1) Encephalopathy Status: Acute Additional Information: Neurology following. (2) Postconcussive syndrome Status: Acute Additional Information: Dizziness, weakness, confusion. To work with PT and OT and possible Speech Therapy for eval and plan of care regarding strengthening and safety issues. (3) Weakness of both lower extremities Status: Acute Additional Information: PT adn OT to work with pt. (4) UTI (urinary tract infection) Status: Acute Prior Functional Condition Lives With: Alone (Daughter and granddaughter) Residence Type: Private home/apartment Assistive Devices: Straight Cane Prior Functional Status: Indep. at home or school Current Functional Status Failed Alternative Therapy Tri: Arrived from acute care Patient Requirements * Patient has been determined to have significant functional limitations requiring at least two therapy disciplines. * Rehabilitation medical practitioner will provide admission approval, assessment and oversight and program coordination at least daily. * Intensive rehabilitative nursing services on site and available 24 hours a day. * The treatment plan will be developed within 24 hours of admission. * Interdisciplinary and goal oriented treatment by professional nursing, social work professor, and rehabilitation therapist. * Interdisciplinary team meeting weekly inclusive of ongoing comprehensive discharge planning. First team meeting by day seven. Weekly meetings to follow. * Rehab Physician is the team meeting leader. * Pharmacy and diagnostic services will be available. * Ongoing comprehensive rehab program with at least 2 disciplines and greater than or equal to 3 hours a day, 5 days a week. Limitations require: limited mobility, ADL impairment Speech Therapy Minutes: 60 Physical Therapy Minutes: 60 Occupational Therapy Minutes: 60 Therapy The patient is to receive therapy at least 5 days a week. Current Functional Status: Using assistive device PT Treatment Plan: Therapeutic Exercise, Gait Training, Functional Activities , Patient/Family Education, Balance/Proprioception Treatment Plan Frequency: five times per week Treatment Plan Duration: two weeks Plan of Care Comment: 6x/wk for 1st wk; 5x/wk for 2nd and 3rd wks. OT Treatment Plan: ADL's (basic care), Ther. Exercise for ADL's, UE Functional Training, Balance Training, Pt./Family Education OT Treatment Plan Frequency: five times per week OT Treatment Plan Duration: three weeks ST Treatment Plan: Cognitive Linguistic Tx ST Treatment Plan Frequency: five times per week (30 minutes) ROM Comment: B/L LE WNL See OT for UEs. Muscle Weakness Location: Left Lower Extremity, Right Lower Extremity Complication/Comorbidities Patient Complication Risk: (1) Encephalopathy Status: Acute Comments: Neurology following. (2) Postconcussive syndrome Status: Acute Comments: Dizziness, weakness, confusion. To work with PT and OT and possible Speech Therapy for eval and plan of care regarding strengthening and safety issues. (3) Weakness of both lower extremities Status: Acute Comments: PT adn OT to work with pt. (4) UTI (urinary tract infection) Status: Acute Impact on Functional Outcomes Pt should be able , over time, to return to pre injury levels of independence and function. Barriers to Discharge: weakness, endurance, balance, medical stability Plan to Avoid Complications Plan to Avoid Complications The patient cannot receive this care in a lesser intensive setting such as Assisted or Outpatient Therapy due to the patient requiring the following medical supervision due to post concussive sx and encephalopathy. The patient requires oversight by a rehabilitation physician to manage their rehabilitation treatment plan and the multidisciplinary approach to care that can only be provided in an IRF and requires a multidisciplinary approach to care , provided by professional PTs, OTs, STs, dieticians, RTs, rehabilitation nurses and is not available in lesser levels of care. The frequency and duration for therapy, as recommended by the professional Rehabilitation therapists, meet the patient's initial rehabilitation treatment plan needs and will be further evaluated on a weekly basis for progress and/or changes needed. AYLEEN IZAGUIRRE MD Aug 27, 2016 11:18
--- NOTE | 2016-08-27 11:30 | STEVAL ---
Eval Subjective and History Date/Time of Eval DATE: 08/26 & 08/27/16 Medical Diagnosis encephalopathy, fall with concussive syndrome Treatment Order: Assessment, Dev./Imp. tx plan Orientations: Person, Alert, Cooperative Primary Complaint: confusion, memory problems Pain: Yes (10/29, nurse administered pain medication) Date of Onset of Primary Com: 08/23/16 transfer to IRU 08/26/16 Prior History of This Problem: No Patient's Goals: Pt wanted to return home safely. Significant Past Medical Hx: Pt fell in her home and hit her head 08/23/16. [place] [facility] [place] and transfered to IRU 08/26/16. PMH: HTN, scalp laceration, compression fx, chronic back pain, UTI. Medical History Form Reviewed: Yes Residence Type: Private home/apartment Lives With: With Family Prior Functional Status: Pt lived in her own home with her daughter. She was active. Current Functional Status: Reduced short term memory Education Comment NOTCHING PRESS OPERATOR educated patient on reasoning for evaluation. Patient was agreeable to evaluation. Subjective and History Comment: Pt was seen in two sessions for cognitive assessment. On 08/26 she was fatigued and confused. Second day pt was more alert with no significant confusion. Cognition Answer yes/no questions: Yes Follow simple commands: Yes Understands conversation: Yes Identifies a problem exists: Yes Identifies causes to situation: Yes (mildly reduced) Solving simple problems: Moderate Solving complex problems: Maximum Organizes daily tasks: Yes Problem Solving Comments Cueing needed for daily problem solving tasks. Expression Assessment Method: Verbal Expression Abilities: Social speech, Phrase completion, Repeats phrases, Communicates w/ sentences, Naming objects / pictures, Formulates Sentences, Basic Conversation % Words Intelligible: 100 % Sentence Intelligible: 100 % Conversation Intelligible: 95 Voice Quality: Within Functional Limits Expression Comment: Pt formulated sentences to express needs and wants. She responded to questions accurately with mild delay. Pt was interacted socially with other patients and staff. Basic conversation was intact. Repeats series number: Yes (5 numbers) Repeats series word: Yes (recalled partial sentence) Repeats sentence: Yes (partial sentences repeated) Oriented to place: No (confused to place) Oriented to time: No (Aware of month & day but not year) Oriented to daily events: Yes Oriented to remote events: Yes Recalled personal inform: Yes Recalled visitors: No (60 % accuracy) Recalled meal: Yes Recalled general inform: No (70%) Memory Comments Profound deficit in immediate memory, moderate impairment in recent memory and temporal orientation (remote memory). Time orientation for recent memory was WFL, Immediate Memory Score: 29 Immediate Memory Rate: Profound 0-30th Percent Recent Memory Score: 74 Recent Memory Rate: Moderate 61-90th Percent Recent Time Waterflow Score: 91 Recent Time Waterflow Rate: WFL >90th Percent Remote Time Waterflow Score: 71 Remote Time Waterflow Rate: Moderate 61-90th Percent Spatial Waterflow Score: 41 Spatial Waterflow Severity Rate: Profound 0-30th Percent Orientation to Enviro Score: 95 Orientation to Enviro Rate: WFL >90th Percent Recall of General Info Score: 70 Recall of General Info Rate: Moderate 61-90th Percent Problem Solving/Abstract Score: 80 Problem Solving/Abstract Rate: Moderate 61-90th Percent Organization Score: 76 Organization Severity Rating: Severe 31-60th Percent Auditory Processing/Retention: 91 Auditory Processing/Retention: WFL >90th Percent Assessment/Plan of Care Speech Therapy Impressions: On initial day of assessment pt was confused and fatigued. By day two she was rested and more alert. Ross Information Processing Assessment was administered. Results revealed profound deficit in immediate memory. Severe impairment was noted in spaital orientation. Moderate impairement was seen in recent memory, temporal orientation (remote memory), recall of general information, problem solving and organization. Time orientation (recent memory), orientation to environment and organization. [place]ogs[place] Hand Goal: Pt will improve memory to aid safety awareness in a variety of settings. Short Term Objective: 1. Pt will recall 80% of daily activities in memory book in 4/5 sessions. 2. Pt will listen to a short story and recall 3 facts with 80% accuracy. 3. Pt will follow a three step direction with 80% accuracy. ST Treatment Plan: Cognitive Linguistic Tx ST Treatment Plan Frequency: five times per week Treatment Plan Duration: one week Plan of Care Comment Cognitive retraining 5 x a week for 30 minutes Date of Visit 08/27/16 Time Visit Began: 10:00 Time Visit Ended: 10:35 ST Assess/Plan of Care: ST Treatment Charge: Speech Treatment Minutes of Individual Therapy: 35 MEGAN ROBERTSON MS CCC-NOTCHING PRESS OPERATOR Aug 27, 2016 11:05
--- NOTE | 2016-08-27 12:31 | PDIRUTEAM ---
Multidisciplinary Team Meeting Nursing Hx Incontinence: Yes Bladder Goal: 6 Modified Jennings Dumont Y/N: No Bladder Continent or Incontine: Incontinent Incontinent Product Used: Pull-up Number of Times Incontinent of: 1 Cleaning Ability-Bladder: 5 Supervision/Setup Bladder Incontinence Managemen: 3 Moderate Assistance Colostomy Y/N: No Toileting Ability: 3 Moderate Assistance Vital Signs Vital Signs Date Time Temp Pulse Resp B/P Pulse Ox O2 Delivery O2 Flow Rate FiO2 08/27/16 08:15 68 18 08/27/16 08:06 97.9 134/85 97 Room Air Current Medications Current Medications Medications (Trade) Dose Ordered Sig/Ricardo Route PRN Reason Start Time Stop Time Status Last Admin Dose Admin Docusate Sodium (Colace) 100 mg BID PO 08/26/16 21:00 08/27/16 10:03 Acetaminophen/ Butalbital/ Caffeine (Fioricet) 1 tab Q6HR PRN PO HEADACHE 08/26/16 15:00 08/26/16 16:55 Gabapentin (Neurontin) 200 mg HS PO 08/26/16 22:00 08/26/16 20:02 Acetaminophen/ Hydrocodone Bitart ([place] 5/325) 1 tab Q6H PRN PO PAIN 08/26/16 15:00 08/27/16 11:15 Latanoprost (Xalatan) 1 drop HS BOTH EYES 08/26/16 22:00 08/26/16 20:03 Tramadol HCl (Ultram) 50 mg QID PRN PO PAIN 08/26/16 15:00 08/27/16 10:03 Comments Bladder incontinent, admitted yesterday and has not had bm yet. A and O x 3 or x 2 depending on time of day. eating 50% of meals. SPEECH: low BMI, adding mighty shakes and yogurt to boost calories. COGNITIVE : moderate to severe impairment. Did well with auditory comprehension ,but memory impaired. Physical Therapy Bed Transfer Ability: 4 Minimal Assistance Bed Transfer Assistance Needed: 1 Person Overall Toilet / Commode Trans: 4 Minimal Assistance Comments Refused PT as was tired, but did work with OT. Occupational Therapy Bathing Ability: 3 Moderate Assistance Upper Body Dressing Ability: 4 Minimal Assistance Lower Body Dressing Ability: 3 Moderate Assistance Toileting Assistance Needed: 1 Person Comments Lacking motivation. But did well with encouragement. Care Plan Condition at time of discharge: Fair Interventions/Goals Barriers to d/c: memory, motivation. AYLEEN IZAGUIRRE MD Aug 27, 2016 12:29
[2016-08-27] MEDS: CALCIUM CARBONATE 500mg Chewable TAB PO PRN (13:53)
--- NOTE | 2016-08-27 16:36 | NUR ---
Nutrition Risk R/T adult BMI < 18.6 Diet Order: Regular BMI 17.0 Intake 25 - 50% Pt states her appetite has not been great. Pt expressed interest in having Mighty Shakes at 2 pm and 8 pm snacks. Pt also willing to have 10 am snack of pashto yogurt. FANS notified to send pashto yogurt and mighty shakes. RD checked with pt after her having a mighty shake and pt stated "I like them" and expressed interest in where she could buy them. RD provided information on purchasing mighty shakes and contact information for questions.
--- NOTE | 2016-08-27 16:47 | NUR ---
Student charting reviewed by [facility] computer art instructor.
--- NOTE | 2016-08-27 17:00 | NUR ---
BM No BM has been documented since admission to IRU. Pt. is unsure exactly when last BM was, but reports she thinks it was sometime in the past few days. She report she has been passing gas. Abdomen soft and non-tender. Scheduled Colace given this AM. Discussed other options to motivate bowels with pt. She reported she wants to try to the Colace and go from there. Encouraged fluids and ambulation. Will continue to monitor.
--- NOTE | 2016-08-27 17:07 | NUR ---
CM SPOKE WITH PT, AND DAUGHTER ARIANA AND GRANDDAUGHTER PRESENT WITH PT'S PERMISSION. THIS WORKER INTRODUCED SELF, EXPLAINED ROLE, AND PROVIDED CONTACT INFO. PT LIVES ALONE, WITH ARIANA HELPING WITH CLEANING, GROCERY SHOPPING, ETC. PT SAID SHE WANTS TO RETURN HOME UPON [place], WITH [facility] [employer] (SHE HAS HAD THIS IN THE PAST). PT HAS A 2 WHEELED WALKER AT HOME. ARIANA EXPRESSED CONCERNS OF PT RETURNING HOME, AND FALLING AGAIN. THIS WORKER EXPLAINED GOAL WILL BE HOME BUT THIS WILL BE ASSESSED ON-GOING FOR SAFETY. THEY HAD NO QUESTIONS/NEEDS FOR THIS WORKER. PROVIDED ARIANA WITH CONTACT INFO, ALSO. Addendum: 08/27/16 at 1710 by ANA LARIOS Amended: Links added.
--- NOTE | 2016-08-27 17:07 | NUR ---
HITESH DOWNS IS 10 Addendum: 08/27/16 at 1707 by ANA LARIOS Amended: Links added.
--- NOTE | 2016-08-27 18:00 | NUR ---
Pain Pt. has reported constant pain in back consistently a 5/10 all shift. PRN pain meds given. Please see eMAR. Encouraged re-positioning for comfort. Dr. Marquis here to see pt. this evening. Order received for [place] PRN. Will continue to monitor.
--- NOTE | 2016-08-27 18:44 | NUR ---
Summary Pt. is very pleasant. VS's stable. She is on RA. Pt. has denied nausea and SOA all shift. She is a moderate assist transfer x1 with FWW and gait belt. Pt. is able to walk to the bathroom. She does require some direction and encouragement. Pt. takes meds whole. She has been continent. Ferdinand to posterior head area from previous fall prior to admission are noted to be GRANTS SPECIALIST and C/D/I. No drainage noted. Pt. is currently resting in bed. Bilateral SCD's are in place. Heating pad applied to back. Alarm is on. Will pass on report to sheet roller operator.
[2016-08-27] MEDS: GABAPENTIN 100 MG CAPSULE PO SCH (20:36)
[2016-08-27] MEDS: LATANOPROST 0.005% EYE DROPS 2.5 ML BOTTLE BOTH EYES SCH (20:37)
--- NOTE | 2016-08-27 22:43 | NUR ---
Chart Check 24 hour chart check completed
[2016-08-27] MEDS: MAG-AL + SIM LIQUID 30 ML UDC PO PRN (22:58)
[2016-08-28 05:20] LABS: ANION GAP 8 MEQ/L (5-15); BUN/CREATININE RATIO 27 RATIO (6-26); CALCIUM 8.4 MG/DL (8.4-10.2); CHLORIDE 100 MEQ/L (98-107); CO2 - CARBON DIOXIDE 27 MEQ/L (22-30); CREATININE 0.6 MG/DL (0.7-1.2); GLOMERULAR FILTRATION RATE 94; GLUCOSE 133 MG/DL (65-110); POTASSIUM 3.9 MEQ/L (3.6-5); SODIUM 135 MEQ/L (134-144)
--- NOTE | 2016-08-28 05:58 | NUR ---
Summary Sana is a pleasant and cooperative patient. She is alert and oriented x three. When in bed she has siderails up x two and bedalarms on.She ambulates and transfers with one assist with the use of a gaitbelt and fww to and from the bed / bathroom early in the evening. Later in the night she reported nausea and did have a small amount of emesis. Maalox 30 ml was given with relief. It was at this time I questioned Sana when her last bm was and she stated that she did not know for sure.I offered her a Dulcolax supp in the hope that maybe if she had a stool she might not have as much nausea.She agreed and a supp was given.She was placed to the bs . She had a small hard stool with some assist from patient.She was placed back to bed with max assist of tow staff.She stated she was very tired now but had no nausea at all and hoped that in the morning she could have another stool.She denies need for pain meds at this time.SCD's bilaterality to both lower extremities.
[2016-08-28] MEDS: HYDROCODONE/APAP 5 mg/325 mg TABLET PO PRN ×2 (06:51→17:27)
[2016-08-28] MEDS: BISACODYL 10 MG SUPPOSITORY RECTALLY PRN ×2 (06:57)
[2016-08-28 07:46] VITALS: BP 150/89; PULSE 71; RESP 18; TEMP 97.8; O2SAT 96
[2016-08-28] MEDS: DOCUSATE SODIUM 100 MG CAPSULE PO SCH ×2 (08:31→21:01)
[2016-08-28] MEDS: POTASSIUM CHLORIDE 20 MEQ TABLET PO SCH (08:32)
[2016-08-28 08:40] VITALS: PULSE 71; RESP 18
[2016-08-28] MEDS: MILK OF MAGNESIA 30 ML SUSP PO PRN ×2 (09:21→16:39)
[2016-08-28] MEDS: POLYETHYL.GLYCOL 3350 PACKET 17gm PO SCH (12:15)
[2016-08-28] MEDS: TRAMADOL 50 MG TABLET PO PRN ×2 (12:15→19:40)
--- NOTE | 2016-08-28 13:23 | STDAILYN ---
ST Daily Note Date/Time DATE: 08/28/16 TIME: 13:21 Subjective Comment ESPERANZA WAS TREATED WHILE SITTING IN HER BEDSIDE CHAIR FOLLOWING LUNCH. SHE C/ O PAIN IN HER BACK AND NURSING STAFF WAS NOTIFIED. SESSION WAS DISCONTINUED EARLY DUE TO PATIENT FALLING ASLEEP. SHE WAS PLEASANT AND AGREEABLE TO HAVING CODER CLINICIAN, DMITRY, CONDUCT TREATMENT WHILE DOCK BOSS MEGAN SUPERVISED. Orientations: x 3, Alert, Cooperative, Lethargic Chief Complaint: encephalopathy, post concussive syndrome Pain: Yes (PATIENT C/O PAIN IN HER BACK AND NURSING STAFF WAS NOTIFIED) Was Patient Education Provided: Yes Person(s) Educated: Patient Education Subject: Treatment Plan Instruction Understanding Demo: Pt. verbalizes understand Education Comment PATIENT WAS EDUCATED ON THE REASONING FOR COMPLETING THE TARGETED TASKS (I.E., TO IMPROVE MEMORY FUNCTION). THE CLINICIAN ALSO EXPLAINED WHAT THE MEMORY AID WAS FOR AND HOW TO USE IT. PATIENT VERBALIZED UNDERSTANDING AND WAS AGREEABLE TO TREATMENT. *Speech Therapy Impressions Patient completed the following tasks: Short Term Objective: 1. Pt will recall 80% of daily activities in memory book in 4/5 sessions. An external memory aid was provided. Patient recalled what she ate/drank at lunch, and that she had received occupational therapy this morning. She was unable to recall the month and day of today's date, but correctly stated the day of the week. Patient also reported that she had not had any visitors today, aside from the therapists. 2. Pt will listen to a short story and recall 3 facts with 80% accuracy. Patient listened to one short story (i.e., 2-3 sentences) and correctly recalled 2 facts independently. She was able to correctly recall the third fact with maximum cues. 3. Pt will follow a three step direction with 80% accuracy. Not completed today ST Treatment Plan: Cognitive Linguistic Tx ST Treatment Plan Frequency: five times per week Treatment Plan Duration: one week Plan of Care Comment: CONTINUE PLAN OF CARE Start Treatment 1: 12:52 Stop Treatment 1: 13:19 Treatment Duration : ST Treatment Charge: Speech Treatment Minutes of Individual Therapy: 27 ST FIM Comprehension Ability: 3 Moderate Assistance Social Interaction: 4 Minimal Assistance Memory: 2 Maximum Assistance Expression Ability: 6 Modified [place] DMITRY OLIVARES Aug 28, 2016 13:22
[2016-08-28 16:00] VITALS: BP 157/72; PULSE 70; RESP 16; TEMP 97.6; O2SAT 97
--- NOTE | 2016-08-28 20:07 | NUR ---
SHIFT SUMMARY PT HAS BEEN PLEASANT AND COOPERATIVE. PT HAS BEEN OUT TO DINING ROOM FOR MEALS. APPETITE HAS BEEN POOR. PT REPORTS PAIN AT AN 8/10 WHEN ASKED WHERE PAIN IS LOCATED PT RUBS HAND ACROSS UPPER ABDOMEN AND RIBS BELOW BREAST LINE, WELL ACROSS BACK. PT ALSO REPORTS SOME NAUSEA. PT HAS NOT HAD A BM SINCE BEFORE ADMISSION. SPOKE WITH HOWARD RUVALCABA APRN SHE SAID ORDERED MIRALAX DAILY AND MOM PRN. SHE ALSO SAID TO GIVE PT A SUPPOSITORY THIS EVENING. PT WAS GIVEN MOM THIS MORNING, MIRALAX AT LUNCH, AND A BROWN COW THIS AFTERNOON. PT HAD SEVERAL SMALL HARD BM'S. WAS PASSED IN REPORT THAT A SUPPOSITORY SHOULD STILL BE GIVEN. PT IS RESTING IN BED.
[2016-08-28 21:00] VITALS: PULSE 71; RESP 16
[2016-08-28] MEDS: GABAPENTIN 100 MG CAPSULE PO SCH (21:01)
[2016-08-28] MEDS: LATANOPROST 0.005% EYE DROPS 2.5 ML BOTTLE BOTH EYES SCH (22:18)
[2016-08-28] MEDS: MAG-AL + SIM LIQUID 30 ML UDC PO PRN (22:18)
[2016-08-29] VITALS (7 sets, daily range): BP systolic 145–174; BP diastolic 73–91; PULSE 71–75; RESP 14–16; TEMP 98–98.5; O2SAT 95–99
--- NOTE | 2016-08-29 06:40 | NUR ---
Summary Sana is a very pleasant patient. She is alert and oriented x three. While in bed siderails up x two and bedalarms on.She ambulates and transfers with two person assist with the use of a gaitbelt and fww to and from the bed,bsc and to the bathroom . She reported nausea and was given Maalox 30 ml with almost instant relief. Pt had 3 incontinent bowel movement with staff preforming hygiene and clothing management. SCD's bilaterality to both lower extremities. She uses the call light appropriately. Addendum: 08/29/16 at 0650 by LUCIA LAU RN She has reported pain to her upper back and was medicated x one with really no relief.
[2016-08-29] MEDS: POTASSIUM CHLORIDE 20 MEQ TABLET PO SCH (08:46)
[2016-08-29] MEDS: DOCUSATE SODIUM 100 MG CAPSULE PO SCH ×2 (08:46→20:24)
[2016-08-29] MEDS: POLYETHYL.GLYCOL 3350 PACKET 17gm PO SCH (08:47)
[2016-08-29] MEDS: TRAMADOL 50 MG TABLET PO PRN ×2 (09:53→20:20)
[2016-08-29] MEDS: HYDROCODONE/APAP 5 mg/325 mg TABLET PO PRN (10:54)
--- NOTE | 2016-08-29 10:54 | NUR ---
Nutrition Risk F/U Diet Order: Regular Pt states she continues to enjoy the mighty shakes. Would prefer yogurt that is not macedonian yogurt. Pt's PO intake has improved at mealtime to 50 - 100% FANS notified to send non macedonian yogurt for 10 am snack and to continue with mighty shakes at 2pm and HS snacks RD available at ext [phone]
--- NOTE | 2016-08-29 14:59 | PNPDOC ---
HOWARD RUVALCABA V FAMILY PROTECTION SPECIALIST 08/29/16 1455: Subjective Date DATE: 08/29/16 TIME: 14:47 Subjective Sana is seen today in follow up while working with PT. She complains of having some right lateral and posterior rib pain with palpation. She denies feeling short of breath however having pain with deep inspiration. Overall feels that she is improving however is tired from therapy. Denies having difficulty with voiding. Bowels are moving daily. Scalp mallorie appear to be healing well. Objective Vital Signs Vital signs Vital Signs Date Time Temp Pulse Resp B/P Pulse Ox O2 Delivery O2 Flow Rate FiO2 08/29/16 08:00 98.5 71 14 145/73 97 Room Air Telemetry Rhythm: Sinus Rhythm Height (Feet): 5 Height (Inches): 4.00 Weight (Kilograms): 45.000 General General Appearance: Alert, Orientated x 3, Cooperative, No Acute Distress Eyes (Brief) Eyes: FOUND: EOMI ENMT (Brief) ENMT: FOUND: mucosa moist, normal dentition, NOT FOUND: pharnyx erythema Neck (Brief) Neck: FOUND: midline, NOT FOUND: adenopathy, carotid bruits, tracheal deviation Respiratory (Brief) Respiratory: FOUND: clear all [place], equal bilaterally, NOT FOUND: wheezes Cardiovascular (Brief) Cardiac: FOUND: regular rate, regular rhythm, NOT FOUND: murmur, pedal edema Capillary Refill: <2 sec Abdomen (Brief) Abdominal: FOUND: BS normo active x4, soft, NOT FOUND: distended, tender Lymphatic (Brief) Lymphatic: NOT FOUND: adenopathy Musculoskeletal (Brief) Musculoskeletal: FOUND: tenderness (Right lateral and posterior ribs) Integumentary (Brief) Integumentary: FOUND: dry, pink, warm Neurologic (Brief) Neurological: FOUND: cranial 2-12 intact Psychiatric (Brief) Psychiatric: FOUND: alert, attentive, normal affect, oriented Laboratory Laboratory Laboratory Tests 08/28/16 04:31 Assessment & Plan Problems: (1) Encephalopathy Status: Acute (2) Postconcussive syndrome Status: Acute (3) Inability to perform activities of daily living Status: Acute (4) Scalp laceration Status: Acute (5) HTN (hypertension) Status: Chronic (6) Chronic back pain Status: Chronic (7) Compression fracture Status: Chronic (8) Hypokalemia Status: Acute Assessment & Plan: 08/27: Potassium 3.0. Plan/Intensity of Service 08/29/16 In light of previous fall, accompanied with new onset of right rib pain. Will obtain a chest x-ray with right rib films. Continue to encourage patient to participate in therapy for ongoing strengthening. Scalp mallorie can be removed tomorrow 08/30 [place] for pain control Code Status Do Not Resuscitate Hospital Course Summary Disclaimer The hospital course summary below is not to be considered part of the above Progress Note. Hospital Course Summary 08/29/16 In light of previous fall, accompanied with new onset of right rib pain. Will obtain a chest x-ray with right rib films. Continue to encourage patient to participate in therapy for ongoing strengthening. Scalp mallorie can be removed tomorrow 08/30 [place] for pain control WILLIAM MATHIAS MD 08/29/16 1916: Assessment & Plan Plan/Intensity of Service Have independently interviewed and examined pt. Chart reviewed. Case discussed with my FAMILY PROTECTION SPECIALIST. above care plan developed with my supervision; agree with above. Significant pain to right chest wall/back. Rib films show multiple rib fractures. Breathing fair-sore with breathing. Stools did move. Therapy very difficult due to the pain. Lungs: clear CV: regular AB: soft nt/nd +BS MSE: awake alert appropriate Assessment as above with: Right Posterior rib fractures - 4th, 6th, 7th, 8th Plan: Start Miacalcin nasal spray and Ca with Vit D for Rib fracture pain. IS to decrease risk for pneumonia. Continue Bowel motivation. Encourage therapy. DVT Prophylaxis: SCD'S JORDON,HOWARD Gracia APRN Aug 29, 2016 14:55 WILLIAM MATHIAS MD Aug 29, 2016 19:16
--- NOTE | 2016-08-29 15:14 | STDAILYN ---
ST Daily Note Date/Time DATE: 08/29/16 TIME: 14:43 Subjective Comment ESPERANZA WAS TREATED WHILE SITTING IN HER BEDSIDE CHAIR. SHE C/O PAIN IN HER RIBS AND TAILBONE. BOTH NURSING AND DOCTOR WERE AWARE. PATIENT'S NURSE WAS PRESENT AT THE BEGINNING OF THE SESSION TO PLACE SCDs ON PATIENT'S R AND L LEGS. DR. RUVALCABA WAS ALSO PRESENT DURING THE SESSION. SHE DEMONSTRATED INCREASED ALERTNESS COMPARED TO YESTERDAY'S SESSION. PATIENT WAS PLEASANT AND AGREEABLE TO HAVING FUNNEL COATER CLINICIAN, DMITRY, CONDUCT TREATMENT WHILE DIRECTOR OF MEDICAL REVIEW SIDDHARTH SUPERVISED. Orientations: x 3, Alert, Cooperative Chief Complaint: ENCEPHALOPATHY; POST CONCUSSIVE SYNDROME Pain: Yes (PATIENT C/O PAIN IN HER RIBS AND TAILBONE. NURSING AND DOCTOR AWARE. ) Was Patient Education Provided: Yes Person(s) Educated: Patient Education Subject: Treatment Plan Instruction Understanding Demo: Pt. verbalizes understand Education Comment PATIENT WAS EDUCATED ON THE REASONING FOR COMPLETING THE TARGETED TASKS (I.E., FOLLOWING 3-STEP COMMANDS). PATIENT VERBALIZED UNDERSTANDING AND WAS AGREEABLE TO TREATMENT. *Speech Therapy Impressions Patient demonstrated difficulties with immediate memory as evidenced by patient asking the same question 2x during the session. Short Term Objective: 1. Pt will recall 80% of daily activities in memory book in 4/5 sessions. Clinician utilized external memory aid. Patient recalled what she ate/drank at lunch, activities completed in physical therapy this morning, and occupational therapy this afternoon. She even correctly provided the name of the occupational therapist who worked with her. Patient was able to correctly recall the month and day of the week, but could not recall today's date. 2. Pt will listen to a short story and recall 3 facts with 80% accuracy. Patient listened to 7 short stories (i.e., 2-4 sentences) and correctly recalled facts (3 facts per story) with 71% accuracy. She was able to recall missed facts with moderate to maximum cues. Patient benefitted from choice cues. 3. Pt will follow a three step direction with 80% accuracy. Patient correctly completed 2-step directions with 80% (4/5) accuracy. She completed 50% of the direction on 1/5 trials. Patient correctly completed 3-step directions with 60% (3/5) accuracy. She completed 66% of the direction on 2/[address] Treatment Plan: Cognitive Linguistic Tx ST Treatment Plan Frequency: five times per week Treatment Plan Duration: one week Plan of Care Comment: CONTINUE PLAN OF CARE Start Treatment 1: 13:57 Stop Treatment 1: 14:38 Treatment Duration : ST Treatment Charge: Speech Treatment Minutes of Individual Therapy: 41 ST FIM Comprehension Ability: 3 Moderate Assistance Social Interaction: 4 Minimal Assistance Memory: 2 Maximum Assistance Expression Ability: 6 Modified [place] DMITRY OLIVARES Aug 29, 2016 14:49
[2016-08-29] MEDS: HYDROCODONE/APAP 5 mg/325 mg TABLET PO SCH (17:31)
--- NOTE | 2016-08-29 17:46 | DI ---
Indication: ITS.REASON: PREVIOUS FALL, RIGHT LATERAL AND POSTERIOR RIB PAIN PROCEDURE: RIBS RIGHT WITH AP CHEST: Encounter: Initial Comparison: None FINDINGS: Chest: Probable trace right effusion. The lungs are otherwise clear. There is no abnormal airspace opacity, left pleural effusion or pneumothorax identified. The heart size, pulmonary vasculature and mediastinum are within normal limits. Old lumbar bone cement procedure. AP and oblique views of the right ribs: Minimally displaced fractures of the right fourth, sixth, seventh, eighth posterior ribs. IMPRESSION: No acute cardiopulmonary abnormality. Right posterior rib fractures. .
--- NOTE | 2016-08-29 18:34 | NUR ---
SHIFT SUMMARY Pt has been pleasant, happy mood, compliant with medications. Pt complained of pain on her right posterior ribs throughout the day. PRN tramadol, was given and during 1 hr follow Pt continued to complained of pain and states pain medication was not helpful. norco 5/325 mg po was given. 1 hour after tramadol was given. During follow up Pt states it help a little but it was not completely gone. GLADYS mario was notified and new orders were given to schedule Bromide 5 /525 mg po Q 6 hr. Also chest xray was done and impression says: No acute cardiopulmonary abnormality. Right posterior rib fractures. Pt has also been using her heating pad on her back. Pt denies need or concerns at the moment.
[2016-08-29] MEDS: CALCITONIN NASAL SPRAY 200 UNITS NAS SCH (19:46)
[2016-08-29] MEDS: CALCIUM CARBONATE 500mg Chewable TAB PO PRN (19:48)
[2016-08-29] MEDS: CALCIUM 600mg + VIT D 400 TABLET PO SCH (20:23)
[2016-08-29] MEDS: GABAPENTIN 100 MG CAPSULE PO SCH (20:24)
[2016-08-29] MEDS: LATANOPROST 0.005% EYE DROPS 2.5 ML BOTTLE BOTH EYES SCH (20:26)
--- NOTE | 2016-08-30 03:55 | NUR ---
STATUS Patient has been confused, disoriented to time and place. Required mod assist for bed mobility, She needed verbal cues to find way from bathroom back to her bed. Was incontinent x 4 this shift so far, one time requiring a complete bed strip. She needed cues to be able to use call light appropriately. After practicing, she was able to call staff when needed. Took meds whole with water. One PRN Ultram dose given so far for back pain 12/29. She is on scheduled [place].
[2016-08-30] MEDS: HYDROCODONE/APAP 5 mg/325 mg TABLET PO SCH ×5 (05:13→23:16)
[2016-08-30 05:26] LABS: BASOPHILS % (AUTO) 0.6 % (0-2); EOSINOPHILS # (AUTO) 0.1 T/MM3 (0-0.5); HCT - HEMATOCRIT 26.1 % (36-46); HGB - HEMOGLOBIN 8.1 GM/DL (12-16); IMMATURE GRANULOCYTE # (AUTO) 0.16 T/MM3 (0.00-0.03); IMMATURE GRANULOCYTE % (AUTO) 2.9 % (0.0-0.5); LYMPHOCYTES # (AUTO) 1.2 T/MM3 (1-4.8); LYMPHOCYTES % (AUTO) 22.8 % (23-45); MEAN CORPUSCULAR HGB 27.7 UUG (26-34); MEAN CORPUSCULAR VOLUME 89.4 UM3 (80-100); MEAN PLATELET VOLUME 11.2 UM3 (9.4-12.4); MONOCYTES # (AUTO) 1.5 T/MM3 (0-0.8); MONOCYTES % (AUTO) 27.8 % (0-9.0); NEUTROPHILS #(AUTO)-ABSOLUTE 2.4 T/MM3 (1.8-7.7); NEUTROPHILS % (AUTO) 43.9 % (33-66); RED BLOOD COUNT 2.92 M/MM3 (4.00-5.20); WBC - WHITE BLOOD COUNT 5.4 T/MM3 (4.5-11.0)
[2016-08-30 05:39] LABS: ANION GAP 7 MEQ/L (5-15); BUN/CREATININE RATIO 22 RATIO (6-26); CALCIUM 8.6 MG/DL (8.4-10.2); CHLORIDE 102 MEQ/L (98-107); CO2 - CARBON DIOXIDE 24 MEQ/L (22-30); CREATININE 0.5 MG/DL (0.7-1.2); GLOMERULAR FILTRATION RATE 116; GLUCOSE 94 MG/DL (65-110); POTASSIUM 3.9 MEQ/L (3.6-5); SODIUM 133 MEQ/L (134-144)
--- NOTE | 2016-08-30 06:09 | NUR ---
SHIFT SUMMARY Sana required step by step cues to sit on toilet, where to place hands to stand up from bed or toilet, and also to find bed from bathroom. Seems much more confused tonight. She is kind and appreciative of cares. Was incontinent of urine 4 times this shift. Able to take meds whole with water. [place] used for pain relief for back pain with minimal success. 1 PRN Ultram given. Routine Phyllis given per orders. SCDs worn when in bed.
[2016-08-30 08:39] VITALS: BP 108/58; PULSE 84; RESP 18; TEMP 97.8; O2SAT 98
[2016-08-30] MEDS: DOCUSATE SODIUM 100 MG CAPSULE PO SCH ×2 (08:41→20:59)
[2016-08-30] MEDS: POTASSIUM CHLORIDE 20 MEQ TABLET PO SCH (08:41)
[2016-08-30] MEDS: POLYETHYL.GLYCOL 3350 PACKET 17gm PO SCH (08:43)
[2016-08-30] MEDS: TRAMADOL 50 MG TABLET PO PRN ×2 (08:45→15:12)
[2016-08-30] MEDS: CALCIUM 600mg + VIT D 400 TABLET PO SCH ×2 (08:45→20:58)
[2016-08-30 10:25] VITALS: PULSE 84; RESP 18
[2016-08-30] MEDS: CALCITONIN NASAL SPRAY 200 UNITS NAS SCH (11:07)
--- NOTE | 2016-08-30 12:01 | PDIRUOPC ---
Overall Plan of Care Date DATE: 08/29/16 TIME: 20:24 Pt evaluated and examined 08/29/16 late evening. Relevant Changes Relevant Changes: No I have reviewed the patient's information and concur with the finding and results of the pre-admission screen. Certification I certify the patient for rehabilitation. Patient Impairments Prior Medical Conditions: (1) Encephalopathy Status: Acute Additional Information: Neurology following. (2) Postconcussive syndrome Status: Acute Additional Information: Dizziness, weakness, confusion. To work with PT and OT and possible Speech Therapy for eval and plan of care regarding strengthening and safety issues. (3) Weakness of both lower extremities Status: Acute Additional Information: PT adn OT to work with pt. (4) UTI (urinary tract infection) Status: Chronic Current Medical Conditions: (1) Encephalopathy Status: Acute Additional Information: Neurology following. (2) Postconcussive syndrome Status: Acute Additional Information: Dizziness, weakness, confusion. To work with PT and OT and possible Speech Therapy for eval and plan of care regarding strengthening and safety issues. (3) Weakness of both lower extremities Status: Acute Additional Information: PT adn OT to work with pt. (4) UTI (urinary tract infection) Status: Chronic Medical Prognosis Fair IRF Tx That Should Address Dx: Dx Requiring Medical FU: Vital Signs Vital Signs Date Time Temp Pulse Resp B/P Pulse Ox O2 Delivery O2 Flow Rate FiO2 08/30/16 10:25 84 18 08/30/16 08:39 97.8 108/58 98 Room Air Laboratory Laboratory Tests Test 08/30/16 04:31 White Blood Count 5.4T/MM3 Red Blood Count 2.92M/MM3 Hemoglobin 8.1GM/DL Hematocrit 26.1% Mean Corpuscular Volume 89.4UM3 Mean Corpuscular Hemoglobin 27.7UUG Mean Corpuscular Hemoglobin Concent 31.0GM/DL RDW Standard Deviation 59.8FL Platelet Count 201T/MM3 Mean Platelet Volume 11.2UM3 Immature Granulocyte % (Auto) 2.9% Neutrophils (%) (Auto) 43.9% Lymphocytes (%) (Auto) 22.8% Monocytes (%) (Auto) 27.8% Eosinophils (%) (Auto) 2.0% Basophils (%) (Auto) 0.6% Absolute Immature Granulocyte (auto 0.16T/MM3 Absolute Neutrophils (auto) 2.4T/MM3 Absolute Lymphocytes (auto) 1.2T/MM3 Absolute Monocytes (auto) 1.5T/MM3 Absolute Eosinophils (auto) 0.1T/MM3 Absolute Basophils (auto) 0.0T/MM3 Turbidity < 20 Sodium Level 133MEQ/L Potassium Level 3.9MEQ/L Chloride Level 102MEQ/L Carbon Dioxide Level 24MEQ/L Anion Gap 7MEQ/L Blood Urea Nitrogen 11.0MG/DL Creatinine 0.5MG/DL Glomerular Filtration Rate Calc 116 BUN/Creatinine Ratio 22RATIO Glucose Level 94MG/DL Calculated Osmolality 255MOSM/KG Calcium Level 8.6MG/DL Icterus Index < 2 Chemistry Specimen Hemolysis < 15 Anticipated Interventions The patient requires inpatient IRF care for PT, OT, and/or ST for residuals remaining from [] resulting in muscular weakness and strength deficits. ROM Deficit: Right Upper Extremity, Right Lower Extremity Strength Deficits: Right Upper Extremity, Right Lower Extremity FIM Scores Ambulation Distance: 150 Wheelchair Propulsion Distance: 0 Ambulation Ability: 4 Minimal Assistance Ambulation Assistance Needed: 1 Person Walk FIM Score Reason: The pt walked 93ft with the fww and 4/7 assist(FIM score is 2/7 due to distance) Wheelchair Propulsion Ability: 1 Total Assistance Wheelchair Propulsion [place]: 1 Person Stairs: 2 Maximum Assistance Stair Assistance Needed: 1 Person Number of Stairs: 6 Eating Ability-FIM: 5 Supervision/Setup Grooming Ability: 5 Supervision/Setup Bathing Ability: 3 Moderate Assistance Upper Body Dressing Ability: 4 Minimal Assistance Lower Body Dressing Ability: 2 Maximum Assistance Lower Body Dressing Assistance: 1 Person Toileting Ability: 2 Maximum Assistance Toileting Assistance Needed: 1 Person Bed Transfer Ability: 4 Minimal Assistance Bed Transfer Assistance Needed: 1 Person Chair Transfer Ability: 4 Minimal Assistance Chair Transfer Assistance Need: 1 Person Overall Wheelchair Transfer Ab: 3 Moderate Assistance Overall Toilet / Commode Trans: 3 Moderate Assistance Toilet / Commode Transfer Assi: 1 Person Tub / Shower Transfer Ability: 4 Minimal Assistance Tub / Shower Transfer [place]: 1 Person Comprehension Ability: 4 Minimal Assistance Social Interaction: 5 Supervision/Setup Problem Solvin Moderate Assistance Expression Ability: 7+ Complete [place] Memory: 2 Maximum Assistance Current Functional Status Failed Alternative Therapy: Arrived from acute care Patient Requires * Patient has been determined to have significant functional limitations requiring at least two therapy disciplines. * Rehabilitation medical practitioner will provide admission approval, assessment and oversight and program coordination at least daily. * Intensive rehabilitative nursing services on site and available 24 hours a day. * The treatment plan will be developed within 24 hours of admission. * Interdisciplinary and goal oriented treatment by professional nursing, director of social work, and rehabilitation therapist. * Interdisciplinary team meeting weekly inclusive of ongoing comprehensive discharge planning. First team meeting by day seven. Weekly meetings to follow. * Rehab Physician is the team meeting leader. * Pharmacy and diagnostic services will be available. * Ongoing comprehensive rehab program with at least 2 disciplines and greater than or equal to 3 hours a day, 5 days a week. Limitations require: limited mobility, ADL impairment Speech Therapy Minutes: 60 Physical Therapy Minutes: 60 Occupational Therapy Minutes: 60 Therapy The patient is to receive therapy at least 5 days a week. PT Treatment Plan: Therapeutic Exercise, Gait Training, Functional Activities , Patient/Family Education, Balance/Proprioception Treatment Plan Frequency: five times per week Treatment Plan Duration: two weeks Plan of Care Comment: CONTINUE PLAN OF CARE OT Treatment Plan: ADL's (basic care), Ther. Exercise for ADL's, UE Functional Training, Balance Training, Pt./Family Education OT Treatment Plan Frequency: five times per week OT Treatment Plan Duration: three weeks ST Treatment Plan: Cognitive Linguistic Tx ST Treatment Plan Frequency: five times per week Treatment Plan Duration: one week Anticapted LOS/Outcomes Anticipated Functional Outcome Improvement in strenth, stamina and safety awareness. Anticipated DC Destination: Home Health Service Home Safety Plan The patient will be provided with the development of a Home Safety Plan for return to a home or home-like environment and to ensure safety post discharge. Complicating Conditions Complications since IRF admit: (1) Encephalopathy Status: Acute Comments: Neurology following. (2) Postconcussive syndrome Status: Acute Comments: Dizziness, weakness, confusion. To work with PT and OT and possible Speech Therapy for eval and plan of care regarding strengthening and safety issues. (3) Weakness of both lower extremities Status: Acute Comments: PT adn OT to work with pt. 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 The patient requires oversight by a rehabilitation physician to manage their rehabilitation treatment plan and the multidisciplinary approach to care that can only be provided in an IRF and requires a multidisciplinary approach to care , provided by professional PTs, OTs, STs, dieticians, RTs, rehabilitation nurses and is not available in lesser levels of care. The frequency and duration for therapy, as recommended by the professional Rehabilitation therapists, meet the patient's initial rehabilitation treatment plan needs and will be further evaluated on a weekly basis for progress and/or changes needed. AYLEEN IZAGUIRRE MD Aug 30, 2016 12:01
--- NOTE | 2016-08-30 16:15 | NUR ---
Mallorie The two mallorie on pt.'s posterior head are removed at this time by KATHY Avendaño with assistance by this RN. Pt. tolerated procedure well. No drainage, or s/s of infection noted to site. Will continue to monitor.
[2016-08-30 16:30] VITALS: BP 171/87; PULSE 70; RESP 18; TEMP 97.9; O2SAT 100
--- NOTE | 2016-08-30 19:36 | NUR ---
Summary VS's stable. Pt. is on RA. She has denied SOA and nausea. Pt. is a moderate assist transfer x1-2 with FWW and gait belt. She requires direction and encouragement. I/O adequate. She was incontinent of bowel once this shift and has been continent of urine. Pt. has reported tailbone and back/rib pain consistently at a 5-8/10 all shift. PRN and Scheduled pain meds administered. Please see eMAR. Heating pad and re-positioning implemented for comfort. Chair cushions are in both pt.'s recliner and wheelchair. Pt. takes meds whole. Pt. is currently resting in bed. Alarm is on. Bilateral SCD's are in place. Report has been past on to security shift manager.
[2016-08-30] MEDS: LATANOPROST 0.005% EYE DROPS 2.5 ML BOTTLE BOTH EYES SCH (20:57)
[2016-08-30] MEDS: GABAPENTIN 100 MG CAPSULE PO SCH (20:58)
[2016-08-30 22:05] VITALS: BP 147/77; PULSE 75; RESP 20; TEMP 98.1; O2SAT 97
[2016-08-30 23:30] VITALS: PULSE 75
[2016-08-31 00:21] VITALS: BP 147/77; PULSE 66; RESP 14; TEMP 97.8; O2SAT 97
--- NOTE | 2016-08-31 04:43 | NUR ---
CHART CHECK 24hr chart check completed
[2016-08-31] MEDS: HYDROCODONE/APAP 5 mg/325 mg TABLET PO SCH ×3 (05:58→16:47)
[2016-08-31 07:30] VITALS: BP 136/67; PULSE 72; RESP 18; TEMP 98.1; O2SAT 97
--- NOTE | 2016-08-31 07:43 | NUR ---
SHIFT SUMMARY Patient was oriented to self and location for part of the night. Otherwise oriented only to self. She required one direction at a time to complete tasks for toileting, bed transfers, and swallowing meds. She was unable to swallow her 4am pain med, and so took it whole in a spoonful of pudding. She leans back when being assisted up from bed. Also leans when standing at first, and then is able to regain her balance and ambulate with min assist. At first requires Max assist. Had 3 incont. smears of stool. Did remain on toilet for a few extra minutes and was able to have a mod bm with cues to keep trying. Gena care provided for her. She was not able to clean herself. Continues on fluid restriction. However patient is unable to take all meds during power and recovery shift engineer with the allotted amount of water. Will use pudding to give meds today.
[2016-08-31 08:00] VITALS: PULSE 72; RESP 18
[2016-08-31] MEDS: POLYETHYL.GLYCOL 3350 PACKET 17gm PO SCH (09:00)
[2016-08-31] MEDS: DOCUSATE SODIUM 100 MG CAPSULE PO SCH ×2 (09:00→21:29)
[2016-08-31] MEDS: POTASSIUM CHLORIDE 20 MEQ TABLET PO SCH (11:26)
[2016-08-31] MEDS: CALCITONIN NASAL SPRAY 200 UNITS NAS SCH (11:27)
[2016-08-31] MEDS: CALCIUM 600mg + VIT D 400 TABLET PO SCH ×2 (11:27→21:28)
[2016-08-31 16:48] VITALS: BP 167/73; PULSE 70; RESP 12; TEMP 99; O2SAT 98
--- NOTE | 2016-08-31 18:00 | NUR ---
Activity/Confusion Pt. stiffens up with transfers and leans back. She does try to resist staff some with transfers. Pt. requires direction, qeas-as-alae instructions and encouragement. She does have anxiety/nervousness with transfers at times. Pt. is an assist x1-2 with FWW and gait belt. Pt. is noted to be A/O to person, place, day and month on assessment. Pt. is currently on scheduled pain meds. Spoke with GLADYS Cantrell, about concern about increased confusion and need for direction. She gave verbal orders to change Ashley 5 back to PRN, but to be sure to still offer pain meds to pt. Will continue to monitor.
[2016-08-31] MEDS: TRAMADOL 50 MG TABLET PO PRN (19:32)
[2016-08-31] MEDS: CALCIUM CARBONATE 500mg Chewable TAB PO PRN (19:33)
--- NOTE | 2016-08-31 19:44 | NUR ---
Summary VS's stable. Pt. is on RA. Pt. has denied nausea and SOA this shift. She has reported rib and tailbone pain consistently at a 5-6/10 all shift. Pain meds given per orders. Please see eMAR. Heating pad and re-positioning/offloading implemented for comfort. Pt. has been continent this shift. She takes meds with applesauce, or pudding. Pt. is currently resting in bed. Report has been past on to photography colorist.
[2016-08-31 20:08] VITALS: PULSE 74; RESP 14
[2016-08-31] MEDS: GABAPENTIN 100 MG CAPSULE PO SCH (21:29)
[2016-08-31] MEDS: LATANOPROST 0.005% EYE DROPS 2.5 ML BOTTLE BOTH EYES SCH (21:29)
--- NOTE | 2016-08-31 22:37 | PNPDOC ---
IRU Subjective Date DATE: 08/31/16 TIME: 22:34 Subjective Pt rested today, ate in commons, comfortable. IRU Objective Vital Signs Vital signs Vital Signs Date Time Temp Pulse Resp B/P Pulse Ox O2 Delivery O2 Flow Rate FiO2 08/31/16 16:48 99.0 70 12 167/73 98 Room Air Telemetry Rhythm: Sinus Rhythm Height (Feet): 5 Height (Inches): 4.00 Weight (Kilograms): 45.000 General General Appearance: Alert, Orientated x 2 Respiratory (Brief) Respiratory: FOUND: clear all [place], equal bilaterally, NOT FOUND: rales Cardiovascular (Brief) Cardiac: FOUND: pedal edema (trace), regular rate, regular rhythm Capillary Refill: <2 sec Psychiatric (Brief) Psychiatric: FOUND: alert, attentive, normal affect Laboratory Laboratory Laboratory Tests Test 08/30/16 04:31 White Blood Count 5.4T/MM3 Red Blood Count 2.92M/MM3 Hemoglobin 8.1GM/DL Hematocrit 26.1% Mean Corpuscular Volume 89.4UM3 Mean Corpuscular Hemoglobin 27.7UUG Mean Corpuscular Hemoglobin Concent 31.0GM/DL RDW Standard Deviation 59.8FL Platelet Count 201T/MM3 Mean Platelet Volume 11.2UM3 Immature Granulocyte % (Auto) 2.9% Neutrophils (%) (Auto) 43.9% Lymphocytes (%) (Auto) 22.8% Monocytes (%) (Auto) 27.8% Eosinophils (%) (Auto) 2.0% Basophils (%) (Auto) 0.6% Absolute Immature Granulocyte (auto 0.16T/MM3 Absolute Neutrophils (auto) 2.4T/MM3 Absolute Lymphocytes (auto) 1.2T/MM3 Absolute Monocytes (auto) 1.5T/MM3 Absolute Eosinophils (auto) 0.1T/MM3 Absolute Basophils (auto) 0.0T/MM3 Turbidity < 20 Sodium Level 133MEQ/L Potassium Level 3.9MEQ/L Chloride Level 102MEQ/L Carbon Dioxide Level 24MEQ/L Anion Gap 7MEQ/L Blood Urea Nitrogen 11.0MG/DL Creatinine 0.5MG/DL Glomerular Filtration Rate Calc 116 BUN/Creatinine Ratio 22RATIO Glucose Level 94MG/DL Calculated Osmolality 255MOSM/KG Calcium Level 8.6MG/DL Icterus Index < 2 Chemistry Specimen Hemolysis < 15 Assessment & Plan Problems: (1) Encephalopathy Status: Acute Assessment & Plan: Improving and more interactive. Will have PT/OT/Speech tomorrow. (2) Postconcussive syndrome Status: Acute Assessment & Plan: Continues to improve, re eval FIM scores tomorrow. (3) Weakness of both lower extremities Status: Acute Assessment & Plan: WOrk with PT and OT, restart in am. (4) UTI (urinary tract infection) Status: Chronic Assessment & Plan: managed by medical. Code Status Do Not Resuscitate Interventions to Obtain Goals PT Treatment Plan: Therapeutic Exercise, Gait Training, Functional Activities , Patient/Family Education, Balance/Proprioception OT Treatment Plan: ADL's (basic care), Ther. Exercise for ADL's, UE Functional Training, Balance Training, Pt./Family Education ST Treatment Plan: Cognitive Linguistic Tx Hospital Course Summary Disclaimer The hospital course summary below is not to be considered part of the above Progress Note. Hospital Course Summary 08/29/16 In light of previous fall, accompanied with new onset of right rib pain. Will obtain a chest x-ray with right rib films. Continue to encourage patient to participate in therapy for ongoing strengthening. Scalp mallorie can be removed tomorrow 08/30 [place] for pain control AYLEEN IZAGUIRRE MD Aug 31, 2016 22:37
[2016-08-31] MEDS: HYDROCODONE/APAP 5 mg/325 mg TABLET PO PRN (22:59)
[2016-08-31 23:15] VITALS: BP 144/67; PULSE 74; RESP 14; TEMP 98.1; O2SAT 98
--- NOTE | 2016-09-01 01:06 | NUR ---
Chart Check 24 hour chart check completed
[2016-09-01] MEDS: HYDROCODONE/APAP 5 mg/325 mg TABLET PO PRN ×3 (04:53→20:47)
[2016-09-01 05:41] LABS: BASOPHILS % (AUTO) 0.5 % (0-2); EOSINOPHILS # (AUTO) 0.1 T/MM3 (0-0.5); EOSINOPHILS % (AUTO) 2.1 % (0-4); HCT - HEMATOCRIT 27.9 % (36-46); HGB - HEMOGLOBIN 8.9 GM/DL (12-16); IMMATURE GRANULOCYTE # (AUTO) 0.12 T/MM3 (0.00-0.03); IMMATURE GRANULOCYTE % (AUTO) 2.1 % (0.0-0.5); LYMPHOCYTES # (AUTO) 1.3 T/MM3 (1-4.8); LYMPHOCYTES % (AUTO) 22.5 % (23-45); MEAN CORPUSCULAR HGB CONC(MCHC 31.9 GM/DL (31-37); MEAN CORPUSCULAR VOLUME 87.7 UM3 (80-100); MEAN PLATELET VOLUME 11.1 UM3 (9.4-12.4); MONOCYTES # (AUTO) 1.7 T/MM3 (0-0.8); MONOCYTES % (AUTO) 29.4 % (0-9.0); NEUTROPHILS #(AUTO)-ABSOLUTE 2.5 T/MM3 (1.8-7.7); NEUTROPHILS % (AUTO) 43.4 % (33-66); RED BLOOD COUNT 3.18 M/MM3 (4.00-5.20); WBC - WHITE BLOOD COUNT 5.8 T/MM3 (4.5-11.0)
[2016-09-01 05:54] LABS: ANION GAP 10 MEQ/L (5-15); BUN/CREATININE RATIO 25 RATIO (6-26); CALCIUM 8.8 MG/DL (8.4-10.2); CHLORIDE 101 MEQ/L (98-107); CO2 - CARBON DIOXIDE 24 MEQ/L (22-30); CREATININE 0.6 MG/DL (0.7-1.2); GLOMERULAR FILTRATION RATE 94; GLUCOSE 107 MG/DL (65-110); POTASSIUM 4.1 MEQ/L (3.6-5); SODIUM 135 MEQ/L (134-144)
--- NOTE | 2016-09-01 06:19 | NUR ---
Shift Summary Alert and oriented x3 throughout noc. While in bed side rails up x two and bed alarms on, SCD's in place. She ambulates and transfers with 1 assist with the use of a gait belt and walker . PRN [place] given PRN for pain, see MAR. Continent of b&b, uses call light appropriately for assistance.
[2016-09-01 08:00] VITALS: BP 142/71; PULSE 77; RESP 18; TEMP 97.8; O2SAT 98
[2016-09-01] MEDS: CALCIUM 600mg + VIT D 400 TABLET PO SCH ×2 (08:33→20:46)
[2016-09-01] MEDS: POTASSIUM CHLORIDE 20 MEQ TABLET PO SCH (08:33)
[2016-09-01] MEDS: CALCITONIN NASAL SPRAY 200 UNITS NAS SCH (08:34)
[2016-09-01] MEDS: POLYETHYL.GLYCOL 3350 PACKET 17gm PO SCH (08:36)
[2016-09-01] MEDS: DOCUSATE SODIUM 100 MG CAPSULE PO SCH ×2 (08:36→20:47)
[2016-09-01] MEDS: TRAMADOL 50 MG TABLET PO PRN (08:42)
--- NOTE | 2016-09-01 09:55 | PNPDOC ---
HOWARD RUVALCABA V HEAVY EQUIPMENT RENTAL ASSOCIATE 09/01/16 0953: Subjective Date DATE: 09/01/16 TIME: 09:49 Subjective Sana is seen this morning during breakfast. She continues to complain of right posterior chest wall/ Rib pain. Discussed findings of 4 rib fractures. Encouraged pillow splinting and deep breathing and coughing to avoid pneumonia. She is maintaining adequate saturations on room air. Appetite is good and bowels are moving regularly. Nursing staff does note some confusion with increased use of the [place]. Objective Vital Signs Vital signs Vital Signs Date Time Temp Pulse Resp B/P Pulse Ox O2 Delivery O2 Flow Rate FiO2 08/31/16 23:15 98.1 74 14 144/67 98 Room Air Telemetry Rhythm: Sinus Rhythm Height (Feet): 5 Height (Inches): 4.00 Weight (Kilograms): 45.000 General General Appearance: Alert, Orientated x 3, Cooperative, No Acute Distress Eyes (Brief) Eyes: FOUND: EOMI ENMT (Brief) ENMT: FOUND: mucosa moist, normal dentition, NOT FOUND: pharnyx erythema Neck (Brief) Neck: FOUND: midline, NOT FOUND: adenopathy, carotid bruits, tracheal deviation Respiratory (Brief) Respiratory: FOUND: clear all [place], equal bilaterally, NOT FOUND: wheezes Cardiovascular (Brief) Cardiac: FOUND: regular rate, regular rhythm, NOT FOUND: murmur, pedal edema Capillary Refill: <2 sec Abdomen (Brief) Abdominal: FOUND: BS normo active x4, soft, NOT FOUND: distended, tender Lymphatic (Brief) Lymphatic: NOT FOUND: adenopathy Musculoskeletal (Brief) Musculoskeletal: NOT FOUND: tenderness Integumentary (Brief) Integumentary: FOUND: dry, pink, warm Neurologic (Brief) Neurological: FOUND: cranial 2-12 intact Psychiatric (Brief) Psychiatric: FOUND: alert, attentive, normal affect, oriented Laboratory Laboratory Laboratory Tests 09/01/16 05:02 Laboratory Tests 09/01/16 05:02 Assessment & Plan Problems: (1) Encephalopathy Status: Acute (2) Postconcussive syndrome Status: Acute (3) Inability to perform activities of daily living Status: Acute (4) Scalp laceration Status: Acute (5) HTN (hypertension) Status: Chronic (6) Chronic back pain Status: Chronic (7) Compression fracture Status: Chronic (8) Hypokalemia Status: Acute Assessment & Plan: 08/27: Potassium 3.0. Plan/Intensity of Service 09/01/16 Continue with close needed for pain control. Do use sparingly as this does cause increased confusion. Incentive spirometry encourage hourly while awake. Discussed deep breathing and coughing to avoid pneumonia Miacalcin nasal spray and Ca with Vit D for Rib fracture pain. Continue to work on bowel motivation. Encourage work with PT and OT for ongoing strengthening Code Status Do Not Resuscitate Hospital Course Summary Disclaimer The hospital course summary below is not to be considered part of the above Progress Note. Hospital Course Summary 08/29/16 In light of previous fall, accompanied with new onset of right rib pain. Will obtain a chest x-ray with right rib films. Continue to encourage patient to participate in therapy for ongoing strengthening. Scalp mallorie can be removed tomorrow 08/30 [place] for pain control 09/01/16 Continue with close needed for pain control. Do use sparingly as this does cause increased confusion. Incentive spirometry encourage hourly while awake. Discussed deep breathing and coughing to avoid pneumonia Miacalcin nasal spray and Ca with Vit D for Rib fracture pain. Continue to work on bowel motivation. Encourage work with PT and OT for ongoing strengthening WILLIAM MATHIAS MD 09/01/16 1825: Assessment & Plan Plan/Intensity of Service Have independently interviewed and examined pt. Chart reviewed. Case discussed with my HEAVY EQUIPMENT RENTAL ASSOCIATE. Above care plan developed with my supervision; agree with above. Doing okay. Back pain still bothersome-very sore. Tolerating therapy. Breathing stable. No nausea. Bowel moving (not as urgently as at first). Nursing wonders if Lidoderm may be helpful with controlling patient's back pain. Lungs: clear bilaterally, no distress on RA. CV: regular MSE: awake alert appropriate Assessment as above with: Right Posterior rib fractures - 4th, 6th, 7th, 8th Plan: Will give trial of Lidoderm patch to see if helps back pain-pt in favor of anything to help. Continue with pain control. Continue bowel motivation. Encourage therapy. Encourage IS us to help decrease atelectasis/pneumonia. Continue with supportive care. Patient medically stable for IRU floor activities. HOWARD RUVALCABA APRN Sep 01, 2016 09:53 WILLIAM MATHIAS MD Sep 01, 2016 18:25
--- NOTE | 2016-09-01 09:58 | STDAILYN ---
ST Daily Note Date/Time DATE: 09/01/16 TIME: 09:47 Subjective Comment Pt pleasantly confused but reoriented with cue. Pt complained of back pain and pain where mallorie were removed. Nursing notified. Pt had pain pill at breakfast. Orientations: Person, Place, Cooperative Chief Complaint: encephalopathy Pain: Yes *Speech Therapy Impressions 1. Pt will use memory book to recall daily and therapeutic activities: Sana recalled daily and weekend events with 75% independently. She responded well to cue. 2. Pt will listen to a short story and recall 3 facts with 80% accuracy. Pt listened to short paragraph and recalled facts 15/21 independently, 4/21 cued and 3/21 in error. 3. Pt will follow a three step direction with 80% accuracy. Not attempted in this session. Pt recalled biographical information with mild delay in basic conversation. She expressed her needs and want accurately in therapy. ST Treatment Plan Frequency: five times per week (30 minutes) Treatment Plan Duration: one week Plan of Care Comment: Extend her plan of care for additional week with current goals. Start Treatment 1: 09:00 Stop Treatment 1: 09:40 Treatment Duration : ST Treatment Charge: Speech Treatment Minutes of Individual Therapy: 40 MEGAN ROBERTSON MS CCC-TIMBER SETTER Sep 01, 2016 09:53
--- NOTE | 2016-09-01 12:12 | DI ---
Indication: ITS.REASON: right calf tenderness PROCEDURE: US VENOUS DUPLEX, LOWER EXT RT: Encounter: Initial Comparison: None Technique: Color Doppler duplex and grayscale sonographic imaging of the right lower extremity was performed. Findings: There is no evidence for acute deep venous thrombosis in the right thigh. Specifically, serial graded compression was performed from the inguinal ligament to the popliteal bifurcation, on the right thigh, demonstrating appropriate compressibility of the deep venous system. In addition, color and pulsed Doppler demonstrate appropriate spontaneous flow, variation with respiration, and augmentation with calf compression. At the ankle, normal flow is identified in the posterior tibial veins; these vessels are also normal in caliber. Impression: No evidence of acute DVT in the right lower limb. .
--- NOTE | 2016-09-01 14:47 | NUR ---
Nutrition Risk F/U Diet Order: Regular diet Pt states she continues to enjoy the mighty shakes at 2pm and 8 pm and the yogurt at 10 am. Pt states she generally eats ~50 % of her other meals. Pt states she doesn't ever eat that big of a meal. FANS will continue to send mighty shakes BID and yogurt for am snack. RD available at ext [phone]
[2016-09-01 16:00] VITALS: BP 150/79; PULSE 87; RESP 14; TEMP 98.7; O2SAT 97
[2016-09-01] MEDS: LIDOCAINE 5% PATCH TOP SCH (18:26)
--- NOTE | 2016-09-01 19:25 | NUR ---
Shift Summary Patient ambulates with FWW, gait belt, mod assist to bathroom and to w/c this shift. Needs total assist to propel wheelchair to meals. Patient lidocaine patch to mid right back. Transfers with max to mod assist. Incontinent of urine x1, wears pullups. No BM this shift. Alert and oriented to self, time and place some of the time. Does not remember the injuries she sustained from her fall except for her head injury. Wears SCD's when in bed. Patient daughter visited today. Worked with PT, OT, and ST this shift. Patient wears glasses.
[2016-09-01 20:30] VITALS: PULSE 86; RESP 16
[2016-09-01] MEDS: GABAPENTIN 100 MG CAPSULE PO SCH (20:46)
[2016-09-01] MEDS: LIDOCAINE PATCH REMOVAL TOP SCH (20:47)
[2016-09-01] MEDS: LATANOPROST 0.005% EYE DROPS 2.5 ML BOTTLE BOTH EYES SCH (20:47)
--- NOTE | 2016-09-01 22:44 | PNPDOC ---
IRU Subjective Date DATE: 09/01/16 TIME: 22:41 Subjective Increasing rib pain with increasing activity. Some limited performance and required encouragement with PT and OT today. IRU Objective Vital Signs Vital signs Vital Signs Date Time Temp Pulse Resp B/P Pulse Ox O2 Delivery O2 Flow Rate FiO2 09/01/16 16:00 98.7 87 14 150/79 97 Room Air Telemetry Rhythm: Sinus Rhythm Height (Feet): 5 Height (Inches): 4.00 Weight (Kilograms): 45.000 Laboratory Laboratory Laboratory Tests Test 09/01/16 05:02 White Blood Count 5.8T/MM3 Red Blood Count 3.18M/MM3 Hemoglobin 8.9GM/DL Hematocrit 27.9% Mean Corpuscular Volume 87.7UM3 Mean Corpuscular Hemoglobin 28.0UUG Mean Corpuscular Hemoglobin Concent 31.9GM/DL RDW Standard Deviation 59.1FL Platelet Count 256T/MM3 Mean Platelet Volume 11.1UM3 Immature Granulocyte % (Auto) 2.1% Neutrophils (%) (Auto) 43.4% Lymphocytes (%) (Auto) 22.5% Monocytes (%) (Auto) 29.4% Eosinophils (%) (Auto) 2.1% Basophils (%) (Auto) 0.5% Absolute Immature Granulocyte (auto 0.12T/MM3 Absolute Neutrophils (auto) 2.5T/MM3 Absolute Lymphocytes (auto) 1.3T/MM3 Absolute Monocytes (auto) 1.7T/MM3 Absolute Eosinophils (auto) 0.1T/MM3 Absolute Basophils (auto) 0.0T/MM3 Turbidity < 20 Sodium Level 135MEQ/L Potassium Level 4.1MEQ/L Chloride Level 101MEQ/L Carbon Dioxide Level 24MEQ/L Anion Gap 10MEQ/L Blood Urea Nitrogen 15.0MG/DL Creatinine 0.6MG/DL Glomerular Filtration Rate Calc 94 BUN/Creatinine Ratio 25RATIO Glucose Level 107MG/DL Calculated Osmolality 261MOSM/KG Calcium Level 8.8MG/DL Icterus Index < 2 Chemistry Specimen Hemolysis < 15 Assessment & Plan Problems: (1) Encephalopathy Status: Acute Assessment & Plan: stable, managed by medical. (2) Postconcussive syndrome Status: Acute Assessment & Plan: Managed by medical and neurology. (3) Weakness of both lower extremities Status: Acute Assessment & Plan: PT and OT to continue with pt. Re-eval at team meeting. (4) UTI (urinary tract infection) Status: Chronic Assessment & Plan: managed by medical. (5) Ribs, multiple fractures Assessment & Plan: PT and OT aware of rib fractures. Will adjust activity as needed. Code Status Do Not Resuscitate Interventions to Obtain Goals PT Treatment Plan: Therapeutic Exercise, Gait Training, Functional Activities , Patient/Family Education, Balance/Proprioception OT Treatment Plan: ADL's (basic care), Ther. Exercise for ADL's, UE Functional Training, Balance Training, Pt./Family Education ST Treatment Plan: Cognitive Linguistic Tx Hospital Course Summary Disclaimer The hospital course summary below is not to be considered part of the above Progress Note. Hospital Course Summary 08/29/16 In light of previous fall, accompanied with new onset of right rib pain. Will obtain a chest x-ray with right rib films. Continue to encourage patient to participate in therapy for ongoing strengthening. Scalp mallorie can be removed tomorrow 08/30 [place] for pain control 09/01/16 Continue with close needed for pain control. Do use sparingly as this does cause increased confusion. Incentive spirometry encourage hourly while awake. Discussed deep breathing and coughing to avoid pneumonia Miacalcin nasal spray and Ca with Vit D for Rib fracture pain. Continue to work on bowel motivation. Encourage work with PT and OT for ongoing strengthening AYLEEN IZAGUIRRE MD Sep 01, 2016 22:44
[2016-09-02] VITALS: BP 147/69; PULSE 86; RESP 16; TEMP 98.3; O2SAT 96
[2016-09-02] MEDS: HYDROCODONE/APAP 5 mg/325 mg TABLET PO PRN (06:02)
--- NOTE | 2016-09-02 06:13 | NUR ---
CHART CHECK 24hr chart check completed.
--- NOTE | 2016-09-02 06:54 | NUR ---
SHIFT SUMMARY Sana slept well much of night. She was continent 1x and incontinent 1x. Required step by step instructions to comprehend getting out of bed, using walker, walking to bathroom, and even pulling up pants after toileting. She was occasionally confused about where she was, thinking this was someone's home. She was able to use her call light when she needed something. She accidentally unplugged part of her heating pad, and also accidentally turned on the light with the bed controls. She seemed anxious if she didn't understand what was happening and why, so it worked best to give an instruction and then allow plenty of time for her to process and then give the next instruction. She had PRN [place] at HS and again around 0545 this a.m. Max assist to get to edge of bed. Min assist once standing up. Used walker but needs cuing to use it correctly.
[2016-09-02 08:00] VITALS: BP 142/81; PULSE 70; RESP 12; TEMP 98.2; O2SAT 98
[2016-09-02] MEDS: CALCITONIN NASAL SPRAY 200 UNITS NAS SCH (08:31)
[2016-09-02] MEDS: CALCIUM 600mg + VIT D 400 TABLET PO SCH ×2 (08:32→22:04)
[2016-09-02] MEDS: POTASSIUM CHLORIDE 20 MEQ TABLET PO SCH (08:32)
[2016-09-02] MEDS: DOCUSATE SODIUM 100 MG CAPSULE PO SCH ×2 (08:32→22:04)
[2016-09-02] MEDS: POLYETHYL.GLYCOL 3350 PACKET 17gm PO SCH (08:33)
[2016-09-02] MEDS: LIDOCAINE 5% PATCH TOP SCH (09:09)
--- NOTE | 2016-09-02 11:12 | STDAILYN ---
ST Daily Note Date/Time DATE: 09/02/16 TIME: 10:43 Subjective Comment Sana was in a pleasant mood for this morning's session. She maintained a conversation and was willing to complete different tasks with the student clinician. Sana reported she was cold prior to beginning the session. The clinicians provided her a heating pad and blanket. Orientations: Person, Place, Cooperative, Motivated Chief Complaint: Encepthalopathy Pain: No Was Patient Education Provided: Yes Person(s) Educated: Patient Education Subject: Treatment Plan Instruction Understanding Demo: PtSoumya reyes understanding Education Comment Pt. was educated about the treatment activities for the day. She verbally expressed understanding prior to beginning the treatment session. *Speech Therapy Impressions 1. Pt will recall 80% of daily activities in memory book in 4/5 sessions. PT. recalled activities from her morning routine of showering, going back to her room to finish getting ready for breakfast, as well as what she had eaten for breakfast. 2. Pt will listen to a short story and recall 3 facts with 80% accuracy. Pt. exhibited 50% accuracy for listening to a short story and answering yes/no and multiple choice questions. 3. Pt will follow a three step direction with 80% accuracy Pt. demonstrated 70% accuracy for following one step written directions when given 10 trials. Pt. required extra time to answer questions and repetitions of the yes/no and multiple choice questions. ST Treatment Plan: Cognitive Linguistic Tx ST Treatment Plan Frequency: five times per week Treatment Plan Duration: one week Plan of Care Comment: Continue Plan of Care Start Treatment 1: 10:30 Stop Treatment 1: 10:33 ST FIM Comprehension Ability: 4 Minimal Assistance Social Interaction: 7+ Complete Pleasants Problem Solvin Minimal Assistance Memory: 3 Moderate Assistance Expression Ability: 5 Supervision/Setup Swallowin+ Complete Pleasants NILA JACKSON Sep 02, 2016 10:47
[2016-09-02] MEDS: TRAMADOL 50 MG TABLET PO PRN (12:07)
[2016-09-02] MEDS: CALCIUM CARBONATE 500mg Chewable TAB PO PRN (13:35)
[2016-09-02 16:00] VITALS: BP 159/83; PULSE 91; RESP 16; TEMP 97.5; O2SAT 97
--- NOTE | 2016-09-02 17:22 | NUR ---
CM ONGOING DC PLANNING. TEAM IS RECOMMENDING PLACEMENT DUE TO PT'S COGNITION. SPOKE WITH PT AND DAUGHTER ARIANA ABOUT THIS. THEY BOTH STATED OK. ALSO DISCUSSED WITH DAUGHTER THE POSSIBILITY OF ASSISTED LIVING. SHE WANTS THIS WORKER TO FOLLOW UP WITH THIS OPTION.
[2016-09-02] MEDS ORDERED: MENTHOL COUGH DROPS (RICOLA) MM PRN (19:45)
--- NOTE | 2016-09-02 20:46 | NUR ---
Shift summary Patient ambulated with Fww, gait belt, mod to min assist. Patient lidocaine patch to mid back. Patient transfer with mod assist. Confusion noted occasionally today. Patient began to panic when assisting with transfer to wheelchair for supper. Refused to leave bed for supper or to be toileted. Patient worked well with therapy today.
[2016-09-02 21:00] VITALS: BP 170/85; PULSE 88; RESP 17; TEMP 98.9; O2SAT 97
[2016-09-02] MEDS: LIDOCAINE PATCH REMOVAL TOP SCH (21:00)
[2016-09-02] MEDS: LATANOPROST 0.005% EYE DROPS 2.5 ML BOTTLE BOTH EYES SCH (22:03)
[2016-09-02] MEDS: GABAPENTIN 100 MG CAPSULE PO SCH (22:04)
--- NOTE | 2016-09-03 05:20 | NUR ---
SHIFT SUMMARY Patient refused to get out of bed for much of evening. Was changed in bed as she was incontinent of urine. By 9pm, she was wet and bedding needed to be changed. She was agreeable to try to sit up with 2 staff max assist, got her to the edge of bed. She began trembling over much of her body and pushing against staff, but when cued to take a deep breath and told she will be okay, she was able to immediately relax. Using relaxation speech and breathing, Sana got up to edge of bed, and then was able to stand-pivot transfer to wheelchair with max of 2. Toileted where she required step by step directions and frequent soothing to remain calm. She could assist with undressing if she was distracted. When focusing strictly on that task, she trembled. Distraction and relaxation used throughout cares, and she did much better. Allowing her to set the pace enabled her to tell staff when she was ready to make each step. She completed this in reasonable amount of time. Bed stripped and clean bedding/clean pajamas provided. Took meds whole in applesauce. [place] used on back along with 1 PRN [place] at HS.
--- NOTE | 2016-09-03 05:35 | NUR ---
CHART CHECK 24hr chart check completed.
[2016-09-03] MEDS: HYDROCODONE/APAP 5 mg/325 mg TABLET PO PRN (07:35)
[2016-09-03] MEDS: POTASSIUM CHLORIDE 20 MEQ TABLET PO SCH (08:33)
[2016-09-03] MEDS: CALCIUM 600mg + VIT D 400 TABLET PO SCH ×2 (08:33→21:46)
[2016-09-03] MEDS: DOCUSATE SODIUM 100 MG CAPSULE PO SCH ×2 (08:33→21:46)
[2016-09-03] MEDS: POLYETHYL.GLYCOL 3350 PACKET 17gm PO SCH (08:34)
[2016-09-03 08:50] VITALS: BP 99/54; PULSE 73; RESP 16; TEMP 98.2; O2SAT 99
[2016-09-03] MEDS: LIDOCAINE 5% PATCH TOP SCH (08:55)
[2016-09-03] MEDS: CALCITONIN NASAL SPRAY 200 UNITS NAS SCH (08:56)
[2016-09-03 10:00] VITALS: RESP 16
[2016-09-03 10:15] VITALS: BP 138/69
--- NOTE | 2016-09-03 11:22 | STDAILYN ---
ST Daily Note Date/Time DATE: 09/03/16 TIME: 11:13 Subjective Comment Pt was sitting in chair when ST began. She c/o back pain; the ST re-positioned pt to a reclining position and pt stated that her pain was somewhat relieved. The pt was pleasant for therapy but drowsy. Orientations: Place, Alert (but drowsy at times), Cooperative Chief Complaint: encephalopathy Pain: Yes (back pain) Was Patient Education Provided: Yes Person(s) Educated: Patient Education Subject: Speech Strategies (memory strategies) *Speech Therapy Impressions Short Term Objective: 1. Pt will recall 80% of daily activities in memory book in 4/5 sessions. The pt recalled 60% of daily activities completed this morning. She required moderate cues to recall events and demonstrated self-correction x1. 2. Pt will listen to a short story and recall 3 facts with 80% accuracy. The pt recalled 50% of facts after listening to 5 different stories. The pt required max. cues during this activity. 3. Pt will follow a three step direction with 80% accuracy. Did not address during this session. ST Treatment Plan: Communication Retraining ST Treatment Plan Frequency: five times per week Treatment Plan Duration: one week Plan of Care Comment: Cont POC Start Treatment 1: 10:15 Stop Treatment 1: 10:45 Treatment Duration : ST Treatment Charge: Speech Treatment Minutes of Individual Therapy: [address] [place] Sep 03, 2016 11:21
--- NOTE | 2016-09-03 12:33 | PDIRUTEAM ---
Multidisciplinary Team Meeting Nursing Hx Incontinence: Yes Bladder Goal: 6 Modified Sequoyah Dumont Y/N: No Bladder Continent or Incontine: Incontinent Incontinent Product Used: Pull-up Number of Times Incontinent of: 2 Cleaning Ability-Bladder: 2 Maximum Assistance Bladder Incontinence Managemen: 1 Total Assistance Bowel Goal: 6 Modified Sequoyah Colostomy Y/N: No Bowel Incontinent/Continent: Continent Number of times Incontinent of: 0 Cleaning Ability-Bowel: 1 Total Assistance Bowel Incontinence Management: 1 Total Assistance Toileting Ability: 1 Total Assistance Vital Signs Vital Signs Date Time Temp Pulse Resp B/P Pulse Ox O2 Delivery O2 Flow Rate FiO2 09/03/16 10:15 138/69 09/03/16 10:00 16 09/03/16 08:50 98.2 73 99 Room Air Current Medications Current Medications Medications (Trade) Dose Ordered Sig/Ricardo Route PRN Reason Start Time Stop Time Status Last Admin Dose Admin Docusate Sodium (Colace) 100 mg BID PO 08/26/16 21:00 09/03/16 08:33 Bisacodyl (Dulcolax) 10 mg DAILY PRN RECTALLY CONSTIPATION 08/26/16 15:00 08/28/16 00:00 Acetaminophen/ Butalbital/ Caffeine (Fioricet) 1 tab Q6HR PRN PO HEADACHE 08/26/16 15:00 08/26/16 16:55 Calcium Carbonate (TUMS Regular Strength) 1,000 mg PRN PRN PO DYSPEPSIA 08/26/16 15:00 09/02/16 13:35 Gabapentin (Neurontin) 200 mg HS PO 08/26/16 22:00 09/02/16 22:04 Acetaminophen/ Hydrocodone Bitart (Kiana 5/325) 1 tab Q6H PRN PO PAIN 08/26/16 15:00 08/29/16 17:03 DC 08/29/16 10:54 Latanoprost (Xalatan) 1 drop HS BOTH EYES 08/26/16 22:00 09/02/16 22:03 Al Hydroxide/Mg Hydroxide (Maalox) 30 ml Q3H PRN PO INDIGESTION 08/26/16 15:00 08/28/16 22:18 Tramadol HCl (Ultram) 50 mg QID PRN PO PAIN 08/26/16 15:00 09/02/16 12:07 Potassium Chloride (Kdur) 20 meq WB PO 08/28/16 08:00 09/03/16 08:33 Magnesium Hydroxide (Mom) 30 ml BID PRN PO CONSTIPATION 08/28/16 09:30 08/28/16 16:39 Polyethylene Glycol (Miralax) 17 g DAILY PO 08/28/16 09:30 09/03/16 08:34 Acetaminophen/ Hydrocodone Bitart (Kiana 5/325) 1 tab Q6H PO 08/29/16 17:00 08/31/16 18:46 DC 08/31/16 16:47 Calcitonin (Miacalcin) 1 spray DAILY LENORA 08/29/16 19:15 09/03/16 08:56 Calcium/Vitamin D (Caltrate + D) 1 tab BID PO 08/29/16 21:00 09/03/16 08:33 Acetaminophen/ Hydrocodone Bitart (Kiana 5/325) 1 tab Q6H PRN PO PAIN 08/31/16 23:00 09/03/16 07:35 Lidocaine (Lidoderm) 1 patch DAILY TOP 09/01/16 18:15 09/03/16 08:55 Lidocaine (Lidoderm Patch Removal) 1 removal 2100 TOP 09/01/16 21:00 09/02/16 21:00 Comments Incontinent "at times". Lidocaine patch has helped back pain. Pt had a panic attack yesterday after fearing she would fall. Kiana, ultram, neurontin for pain control. Pain 5/10 typically, and this is acceptable to her. Mighty shakes bid, pt likes the flavor, helping with overall calorie intake. SPEECH pt following one step commands, goal is 3 step commands. Physical Therapy Bed Transfer Ability: 2 Maximum Assistance Bed Transfer Assistance Needed: 2 Persons Chair Transfer Ability: 3 Moderate Assistance Chair Transfer Assistance Need: 1 Person Overall Wheelchair Transfer Ab: 2 Maximum Assistance Wheelchair Transfer Assistance: 2 Persons Overall Toilet / Commode Trans: 2 Maximum Assistance Ambulation Ability: 5 Supervision/Setup Ambulation Assistance Needed: 1 Person Walk FIM Score Reason: 2/7 A d/t distance Ambulation Distance: 164 Comments Poor safety awareness, poor short term memory. Occupational Therapy Grooming Ability: 5 Supervision/Setup Grooming FIM Score Reason: standing Bathing Ability: 3 Moderate Assistance Upper Body Dressing Ability: 2 Maximum Assistance Lower Body Dressing Ability: 1 Total Assistance Lower Body Dressing Assistance: 1 Person Toileting Assistance Needed: 1 Person Comments limited cognition and memory. Requires step by step supervision. Max assist bed mobility today. Care Plan Condition at time of discharge: Fair IRU Discharge Disposition: Home Health Service Interventions/Goals . Unable to recommend home d/c at this point. May not even qualify for assisted living. May go skilled or senior care. Skilled need for speech, cognition. change norco 5 to qid scheduled for better pain relief and see if she will show improvement. Look at next thursday for d/c if improving. barrier to d/c, cognition,safety awareness, balance, pain, strength. AYLEEN IZAGUIRRE MD Sep 03, 2016 12:26
--- NOTE | 2016-09-03 12:33 | PNPDOC ---
HOWARD RUVALCABA V AFFILIATE MANAGER 09/03/16 1228: Subjective Date DATE: 09/03/16 TIME: 12:25 Subjective Pt is seen this morning during breakfast. She is alert and pleasant during examination. Continues to complain of right posterior rib pain however overall feels that it is improved. Scalp wound healing well. Mallorie removed on 08/30. Staff reports some intermittent confusion and continued reminders. Hgb is stable. BP overall well controlled. Objective Vital Signs Vital signs Vital Signs Date Time Temp Pulse Resp B/P Pulse Ox O2 Delivery O2 Flow Rate FiO2 09/03/16 10:15 138/69 09/03/16 10:00 16 09/03/16 08:50 98.2 73 99 Room Air Telemetry Rhythm: Sinus Rhythm Height (Feet): 5 Height (Inches): 4.00 Weight (Kilograms): 43.000 General General Appearance: Alert, Orientated x 2, Cooperative, No Acute Distress Eyes (Brief) Eyes: FOUND: EOMI ENMT (Brief) ENMT: FOUND: mucosa moist, normal dentition, NOT FOUND: pharnyx erythema Neck (Brief) Neck: FOUND: midline, NOT FOUND: adenopathy, carotid bruits, tracheal deviation Respiratory (Brief) Respiratory: FOUND: clear all [place], equal bilaterally, NOT FOUND: wheezes Comments Diminished right bases Cardiovascular (Brief) Cardiac: FOUND: regular rate, regular rhythm, NOT FOUND: murmur, pedal edema Capillary Refill: <2 sec Abdomen (Brief) Abdominal: FOUND: BS normo active x4, soft, NOT FOUND: distended, tender Lymphatic (Brief) Lymphatic: NOT FOUND: adenopathy Musculoskeletal (Brief) Musculoskeletal: NOT FOUND: tenderness Integumentary (Brief) Integumentary: FOUND: dry, pink, warm Neurologic (Brief) Neurological: FOUND: cranial 2-12 intact Psychiatric (Brief) Psychiatric: FOUND: alert, attentive, normal affect, oriented Assessment & Plan Problems: (1) Encephalopathy Status: Acute (2) Postconcussive syndrome Status: Acute (3) Inability to perform activities of daily living Status: Acute (4) Scalp laceration Status: Acute (5) HTN (hypertension) Status: Chronic (6) Chronic back pain Status: Chronic (7) Compression fracture Status: Chronic (8) Hypokalemia Status: Acute Assessment & Plan: 08/27: Potassium 3.0. Plan/Intensity of Service 09/03 Staff reports she continues to have a significant amount of pain at times and she is unable to work with PT, Will change [place] 5 to scheduled every 6 hours as well as Lidoderm patch. BP stable Hgb and Hyponatremia improved. No evidence of DVT in lower ext sonogram Will continue to encourage PT/OT for ongoing strengthening Code Status Do Not Resuscitate Hospital Course Summary Disclaimer The hospital course summary below is not to be considered part of the above Progress Note. Hospital Course Summary 08/29/16 In light of previous fall, accompanied with new onset of right rib pain. Will obtain a chest x-ray with right rib films. Continue to encourage patient to participate in therapy for ongoing strengthening. Scalp mallorie can be removed tomorrow 08/30 [place] for pain control 09/01/16 Continue with close needed for pain control. Do use sparingly as this does cause increased confusion. Incentive spirometry encourage hourly while awake. Discussed deep breathing and coughing to avoid pneumonia Miacalcin nasal spray and Ca with Vit D for Rib fracture pain. Continue to work on bowel motivation. Encourage work with PT and OT for ongoing strengthening WILLIAM MATHIAS MD 09/03/16 1832: Assessment & Plan Plan/Intensity of Service Have independently interviewed and examined pt. Chart reviewed. Case discussed with my AFFILIATE MANAGER. Above care plan developed with my supervision; agree with above. Doing okay overall. Pain varies. No nausea or ab pain. Breathing well. Lungs: clear CV: regular MSE: awake alert appropriate Assessment as above with: Right Posterior rib fractures - 4th, 6th, 7th, 8th Plan: Continue with pain control-[place] moved to routine. Encourage therapy. Encourage good pulmonary toilet. Medically stable for IRU floor activities. HOWARD RUVALCABA APRN Sep 03, 2016 12:28 WILLIAM MATHIAS MD Sep 03, 2016 18:32
[2016-09-03] MEDS: HYDROCODONE/APAP 5 mg/325 mg TABLET PO SCH ×2 (13:23→17:39)
--- NOTE | 2016-09-03 15:07 | PNPDOC ---
IRU Subjective Date DATE: 09/03/16 TIME: 15:04 Subjective Pt cooperating with PT and OT. Eating meals in common area. Continues to feel she is making improvement. IRU Objective Vital Signs Vital signs Vital Signs Date Time Temp Pulse Resp B/P Pulse Ox O2 Delivery O2 Flow Rate FiO2 09/03/16 10:15 138/69 09/03/16 10:00 16 09/03/16 08:50 98.2 73 99 Room Air Telemetry Rhythm: Sinus Rhythm Height (Feet): 5 Height (Inches): 4.00 Weight (Kilograms): 43.000 General General Appearance: Alert Respiratory (Brief) Respiratory: FOUND: clear all [place], equal bilaterally, NOT FOUND: rales, wheezes Cardiovascular (Brief) Cardiac: FOUND: regular rate, regular rhythm, NOT FOUND: pedal edema Capillary Refill: <2 sec Assessment & Plan Problems: (1) Encephalopathy Status: Acute Assessment & Plan: followed by medical. (2) Postconcussive syndrome Status: Acute Assessment & Plan: followed by medical. Staff working on memory and safety issues. (3) Weakness of both lower extremities Status: Acute Assessment & Plan: Using assist as needed. Improving FIM score. Cont with PT and OT. (4) UTI (urinary tract infection) Status: Chronic Assessment & Plan: managed by medical. (5) Ribs, multiple fractures Assessment & Plan: Pain stable today. She is still actively working on strengthening and stability. Code Status Do Not Resuscitate Interventions to Obtain Goals PT Treatment Plan: Therapeutic Exercise, Gait Training, Functional Activities , Patient/Family Education, Balance/Proprioception OT Treatment Plan: ADL's (basic care), Ther. Exercise for ADL's, UE Functional Training, Balance Training, Pt./Family Education ST Treatment Plan: Communication Retraining Hospital Course Summary Disclaimer The hospital course summary below is not to be considered part of the above Progress Note. Hospital Course Summary 08/29/16 In light of previous fall, accompanied with new onset of right rib pain. Will obtain a chest x-ray with right rib films. Continue to encourage patient to participate in therapy for ongoing strengthening. Scalp mallorie can be removed tomorrow 08/30 [place] for pain control 09/01/16 Continue with close needed for pain control. Do use sparingly as this does cause increased confusion. Incentive spirometry encourage hourly while awake. Discussed deep breathing and coughing to avoid pneumonia Miacalcin nasal spray and Ca with Vit D for Rib fracture pain. Continue to work on bowel motivation. Encourage work with PT and OT for ongoing strengthening AYLEEN IZAGUIRRE MD Sep 03, 2016 15:07
[2016-09-03 16:21] VITALS: BP 165/78; PULSE 71; RESP 18; TEMP 97.6; O2SAT 98
[2016-09-03 19:45] VITALS: BP 144/79; PULSE 76; RESP 20; TEMP 98.2; O2SAT 98
--- NOTE | 2016-09-03 19:49 | NUR ---
SHIFT SUMMARY PATIENT COOPERATIVE AND CALM TODAY. C/O PAIN IN BACK, PAID MEDICATION WAS CHANGES TO SCHEDULED. MEDS GIVEN ORDERED AND HEATING PAD USED PROVIDED PAIN RELIEF. PATIENT WAS UP WITH ONE WITH WALKER TO . REQUIRES REPEATED INSTRUCTION ON FOOT PLACEMENT AND POSITIONING WHEN STANDING TO TRANSFER. INCONTINENT OF URINE AND STOOL TODAY. WILL CONT TO MONITOR.
[2016-09-03] MEDS: CALCIUM CARBONATE 500mg Chewable TAB PO PRN (19:56)
[2016-09-03] MEDS: LIDOCAINE PATCH REMOVAL TOP SCH (21:00)
[2016-09-03] MEDS: GABAPENTIN 100 MG CAPSULE PO SCH (21:46)
[2016-09-03] MEDS: LATANOPROST 0.005% EYE DROPS 2.5 ML BOTTLE BOTH EYES SCH (21:46)
[2016-09-04] MEDS: HYDROCODONE/APAP 5 mg/325 mg TABLET PO SCH ×4 (00:30→18:08)
--- NOTE | 2016-09-04 03:13 | NUR ---
Chart Check 24 hour chart check completed
[2016-09-04 08:00] VITALS: BP 132/69; PULSE 78; RESP 18; TEMP 97.6; O2SAT 97
--- NOTE | 2016-09-04 08:00 | NUR ---
Summary Sana is a pleasant and cooperative patient. She is alert and oriented x three. When in bed her siderails are up x two and the bedalarms are on.She ambulates hesitantly from her bed only to the w/c or to the [facility].She is currently on [facility] pain meds . She was sleeping so soundly during the night that she missed a dose of pain meds.SCD's bilaterality to both lower extremities. Abdominal hernia was noted.She was incontinent of bladder x one with max assisting of two staff for hygiene and clothing management .She is very wary of transfers and draws then out over 5 to 10 minutes.She needs much queing and encouragement.
--- NOTE | 2016-09-04 08:00 | NUR ---
Received report Patient is alert and oriented to person at place. Patient ambulates to bathroom with walker and gait belt. No complains reported at this time.
[2016-09-04] MEDS: CALCITONIN NASAL SPRAY 200 UNITS NAS SCH (08:38)
[2016-09-04] MEDS: CALCIUM 600mg + VIT D 400 TABLET PO SCH ×2 (08:39→20:13)
[2016-09-04] MEDS: DOCUSATE SODIUM 100 MG CAPSULE PO SCH ×2 (08:39→20:13)
[2016-09-04] MEDS: POTASSIUM CHLORIDE 20 MEQ TABLET PO SCH (08:39)
[2016-09-04] MEDS: POLYETHYL.GLYCOL 3350 PACKET 17gm PO SCH (08:39)
[2016-09-04] MEDS: LIDOCAINE 5% PATCH TOP SCH (08:40)
[2016-09-04] MEDS: TRAMADOL 50 MG TABLET PO PRN ×2 (09:14→20:18)
--- NOTE | 2016-09-04 12:12 | NUR ---
HITESH CALLED AND SPOKE WITH MATHEW WITH PM, FOR ASSISTED LIVING OPTION. SHE SAID SHE WILL CALL DAUGHTER ARIANA. THEN, THIS WORKER RECEIVED CALL BACK FROM MATHEW, SAYING DAUGHTER WILL VISIT PM TOMORROW. LEFT MESSAGE WITH DAUGHTER, RE: ANTICIPATED DC DATE IS PER TEAM MEETING. AND THAT SHE CAN CALL FOR ADDITIONAL ASSISTED LIVING FACILITIES. DC PLAN IS POSSIBLE ASSISTED LIVING VS. SNU
--- NOTE | 2016-09-04 13:01 | STDAILYN ---
ST Daily Note Date/Time DATE: 09/04/16 TIME: 10:59 Subjective Comment Sana was in a pleasant mood for today's morning session. She cooperated with the student graduate clinician, Nila, with supervision from PROCEDURE ANALYST Melba. Orientations: Person, Place, Alert, Cooperative, Motivated Chief Complaint: Encephalopathy Pain: Yes (Pt. reported to have pain on lower right side. Clinicians provided a heating pad to help with the issue. ) Was Patient Education Provided: Yes Person(s) Educated: Patient Education Subject: Treatment Plan Instruction Understanding Demo: Pt. verbalizes understand Education Comment Patient verbalized understanding of completing daily activities in memory book, listing to short stories and recalling facts, in addition to following a 1-2 step direction. *Speech Therapy Impressions 1. Pt will recall 80% of daily activities in memory book in 4/5 sessions. Pt. recalled the specific items from her morning activities with 50% accuracy. Recalled what she had for breakfast (biscuits, feliciano, cereal, and coffee); however, she demonstrated difficulty recalling what the day of the week was. 2. Pt will listen to a short story and recall 3 facts with 80% accuracy. Pt. listened to a short story and recalled facts auditorily with 56% accuracy. Pt. read a short story aloud, read questions, and then recalled the facts with 25% accuracy. 3. Pt will follow a three step direction with 80% accuracy. Auditorily: Pt. demonstrated 100% accuracy for following 1-step and 2-step directions. Reading: Pt. demonstrated 100% accuracy for following 1-step and 2-step directions. ST Treatment Plan: Cognitive Linguistic Tx ST Treatment Plan Frequency: five times per week Treatment Plan Duration: one week Plan of Care Comment: Continue Plan of Care Start Treatment 1: 10:25 Stop Treatment 1: 10:55 Treatment Duration : ST Treatment Charge: Speech Treatment Minutes of Individual Therapy: 30 ST FIM Comprehension Ability: 3 Moderate Assistance Social Interaction: 7+ Complete [place] Problem Solvin Moderate Assistance Memory: 3 Moderate Assistance Expression Ability: 5 Supervision/Setup Swallowin+ Complete [place] NILA JACKSON Sep 04, 2016 11:02
--- NOTE | 2016-09-04 13:58 | NUR ---
High Risk Screen R/T BMI <18 Diet: Regular, Intake 25%-100% winter intern visited with patient about her appetite and intake. Patient reiterated that she never eats big meals and never has a large appetite. When asked about mighty shakes, she stated that she doesn't like the vanilla or chocolate mighty shakes but she was willing to try a strawberry one. [place] shakes were added to her dinner time tray and were added to her 10am snack order. ARASH available at 1406 Addendum: 09/04/16 at [address] Student charting reviewed by ARASH.
--- NOTE | 2016-09-04 14:00 | NUR ---
Therapy Patient cooperates with therapy. Ambulates to dining room with therapy. Patient continues to complain of Rt rib pain Lidoderm in place to affected area.
[2016-09-04 16:21] VITALS: BP 137/67; PULSE 69; RESP 18; TEMP 98.3; O2SAT 97
--- NOTE | 2016-09-04 17:09 | NUR ---
CM VOICEMAIL FROM APRIL LANE. LEFT MESSAGE WITH ARIANA.
--- NOTE | 2016-09-04 17:19 | NUR ---
CM CALL FROM ARIANA. DISCUSSED DC OPTIONS AND FINANCES; SHE SAID SHE WILL HAVE HER BROTHER (DOMINIQUE LAIRD) CALL MATHEW AT PM, TO DISCUSS FINANCES FOR ASSISTED LIVING. DISCUSSED ALTERNATIVES IF ASSISTED LIVING IS NOT FINANCIALLY FEASIBLE; SNU, THEN [facility]. THAT IS AN OPTION.
--- NOTE | 2016-09-04 17:50 | NUR ---
EOS Patient ambulates to bathroom. Stays continent the whole shift. Receives pain medications for her fractured rib. No concerns noted this shift.
[2016-09-04] MEDS: GABAPENTIN 100 MG CAPSULE PO SCH (20:13)
[2016-09-04] MEDS: LIDOCAINE PATCH REMOVAL TOP SCH (20:13)
[2016-09-04] MEDS: LATANOPROST 0.005% EYE DROPS 2.5 ML BOTTLE BOTH EYES SCH (20:13)
[2016-09-04 22:03] VITALS: BP 153/83; PULSE 87; RESP 18; TEMP 98.2; O2SAT 98
--- NOTE | 2016-09-04 22:48 | NUR ---
Chart Check 24 hour chart check completed
[2016-09-04 23:51] VITALS: PULSE 87; RESP 18
[2016-09-05] MEDS: HYDROCODONE/APAP 5 mg/325 mg TABLET PO SCH ×4 (00:46→18:28)
--- NOTE | 2016-09-05 03:29 | NUR ---
Summary Sana is a pleasant and cooperative pt. She is alert and oriented x three. She reports pain to her right side/rib cage and to her mid back. She is taking prn and scheduled pain meds with adequate pain management. She ambulates and transfers with hand held assist of one staff gaitbelt and fww. Her anxiety increases with ambulation and transfers. She needs encouragement and queing. When in bed sr up x two ,bedalarms intact and SCDs to bilateral lower extremities. [place] to her upper torso for comfort.
[2016-09-05 08:32] VITALS: BP 162/73; PULSE 64; RESP 18; TEMP 97.6; O2SAT 98
--- NOTE | 2016-09-05 10:09 | NUR ---
CM RECEIVED CALL FROM PT'S SON, DOMINIQUE LAIRD, HE IS IN [place]. SPOKE AT LENGTH WITH HIM, RE: DC PLAN, FINANCES, AND MEDICAID. HE SAID PT DOES NOT HAVE THE FUNDS FOR ASSISTED LIVING. HE SAID SHE DOES HAVE A CD AND SOME OTHER FUNDS, THOUGH. DISCUSSED THAT PLAN COULD BE SNU LEADING TO PRISON C[facility]. THIS WORKER ADVISED HIM TO NOT DO ANYTHING WITH PT'S FUNDS UNTIL HE SPEAKS WITH THE FACILITIES' MEDICAID WORKER. ALSO EXPLAINED WHICH FACILITIES ARE ABLE TO ACCEPT MEDICAID PENDING; ASKED IF THIS WORKER COULD REACH OUT TO THEM. HE SAID HE WILL TALK WITH ARIANA ABOUT THIS FIRST, SINCE ARIANA IS LOCAL AND KNOWS MORE ABOUT THEM.
[2016-09-05] MEDS: CALCITONIN NASAL SPRAY 200 UNITS NAS SCH (10:12)
[2016-09-05] MEDS: DOCUSATE SODIUM 100 MG CAPSULE PO SCH ×2 (10:12→20:37)
[2016-09-05] MEDS: POTASSIUM CHLORIDE 20 MEQ TABLET PO SCH (10:12)
[2016-09-05] MEDS: LIDOCAINE 5% PATCH TOP SCH (10:12)
[2016-09-05] MEDS: POLYETHYL.GLYCOL 3350 PACKET 17gm PO SCH (10:13)
[2016-09-05] MEDS: CALCIUM 600mg + VIT D 400 TABLET PO SCH ×2 (10:13→20:37)
[2016-09-05 10:29] VITALS: PULSE 64; RESP 18
--- NOTE | 2016-09-05 11:53 | STDAILYN ---
ST Daily Note Date/Time DATE: 09/05/16 TIME: 11:41 Subjective Comment Sana was in a pleasant mood today while laying in her chair upon arrival. When asked how her day was going Pt. reported she was tired from the morning exercises. Pt. agreed to work with the graduate clinician, Nila, while being supervised by ACADEMIC ASSISTANT Lu. Orientations: x 3, Alert, Cooperative, Motivated Chief Complaint: Encophalopathy Pain: Yes (Pt. reported right side hurt. Clinician adjusted heating pad and moved back of chair forward to a 90 degree angle. ) Was Patient Education Provided: Yes Person(s) Educated: Patient Education Subject: Treatment Plan Instruction Understanding Demo: Pt. verbalizes understand Education Comment Patient was educated on her treatment plan of recalling events from her memory book, following directions, and recalling facts after listening to a short story. Patient verbalized understanding. *Speech Therapy Impressions 1. Pt will recall 80% of daily activities in memory book in 4/5 sessions. Pt. recalled three events with 100% accuracy of her morning activities: showering/getting ready for the day, items for breakfast (biscuits and gravy), and morning exercises. 2. Pt will listen to a short story and recall 3 facts with 80% accuracy. Pt. listened to a short story and recalled facts auditorily with 55% accuracy (5 /9 trials). 3. Pt will follow a three step direction with 80% accuracy. Reading: Pt. demonstrated 60% accuracy for following 2-step directions. Pt. required max. cues from the clinician including phonemic cues and phrase completion. Pt. demonstrated difficulty following two steps, so the clinician modified the task by completing one direction at a time. A strategy used during this activity was to cover up other directions on the sheet so the Pt. could focus on one step at a time. ST Treatment Plan: Cognitive Linguistic Tx ST Treatment Plan Frequency: five times per week Treatment Plan Duration: one week Plan of Care Comment: Continue Plan of Care Start Treatment 1: 11:05 Stop Treatment 1: 11:35 Treatment Duration : ST Treatment Charge: Speech Treatment Minutes of Individual Therapy: 30 ST FIM Comprehension Ability: 3 Moderate Assistance Social Interaction: 5 Supervision/Setup Problem Solvin Moderate Assistance Memory: 4 Minimal Assistance Expression Ability: 5 Supervision/Setup Swallowin Modified [place] NILA JACKSON Sep 05, 2016 11:44
[2016-09-05 16:03] VITALS: BP 153/75; PULSE 76; RESP 18; TEMP 97.5; O2SAT 98
--- NOTE | 2016-09-05 16:09 | NUR ---
CM THIS WORKER CONTACT [facility], SPOKE WITH ARIANNA. DISCUSSED PT'S GENERAL SITUATION AND NEED FOR ASSISTED LIVING, FINANCES, ETC. SHE SAID IT WOULD BE A POSSIBILITY FOR PT TO GO THERE AND SHE COULD SPEAK WITH THE FAMILY FURTHER. ON-GOING DC PLANNING WITH PT'S DAUGHTER, ARIANA, AND SON, DOMINIQUE. SPOKE WITH THEM ON THE PHONE. THEY SAID [facility] IS NOT AN OPTION DUE TO FINANCES. DISCUSSED THAT ARIANA COULD TOUR [facility]. ARIANA WAS AGREEABLE AND SAID SHE WILL DO THIS. DISCUSSED POSSIBLE PLAN OF: SNU AT [facility] THEN ASSISTED LIVING AT [facility], AND [facility] WOULD WORK WITH THE FAMILY ON MEDICAID. SHE GAVE PERMISSION FOR THIS WORKER TO FAX RECORDS TO [facility] AND [facility] ([facility]), AND THEN TO [facility]. FAXED RECORDS TO [facility]. SPOKE WITH BETHANIE AT [facility], UPDATED HER ON PLAN AND POTENTIAL DC DATE . SHE SAID SHE WILL REVIEW AND LET THIS WORKER KNOW. SPOKE WITH PT, UPDATED HER THAT POSSIBLE DC DATE IS THURSDAY, AND TEAM IS RECOMMENDING SNU. SHE SAID OK AND WAS AGREEABLE TO THIS. EXPLAINED HER DAUGHTER IS TOURING SOME TODAY. LATER SPOKE AGAIN WITH PT, AND DAUGHTER ARIANA AND GRANDDAUGHTER PRESENT. ARIANA STATED SHE "LOVED" [facility] AND [facility] AND WANTS PT TO GO THERE. PT WAS AGREEABLE TO THIS. EXPLAINED THAT CARE ASSESSMENT WILL BE REQUESTED, AND THEY SAID OK. CALLED TMOASZ AT [facility], REQUESTED CARE DATE AND RELAYED POTENTIAL DC DATE. THIS WORKER WILL FOLLOW UP WITH R ON THURSDAY.
--- NOTE | 2016-09-05 16:57 | PNPDOC ---
Subjective Date DATE: 09/05/16 TIME: 16:53 Subjective Sana is seen this afternoon while resting in her room. Staff reports she continues to have intermittent episodes of confusion. Patient does verbalize that she had this "terrible pain" earlier today and states that it was in the right posterior back area. She reports that she has never had this pain before. Patient is reminded that she does have multiple rib fractures in that area. She states I did not know that". Staff also notes that she does display some anxiety in regards to transferring the she states she is concerned about falling. Appetite is fair. Patient is voiding without difficulty and bowels are moving regularly. Room air saturations maintain adequately at 98%. Blood pressure this afternoon 153/75. Objective Vital Signs Vital signs Vital Signs Date Time Temp Pulse Resp B/P Pulse Ox O2 Delivery O2 Flow Rate FiO2 09/05/16 16:03 97.5 76 18 153/75 98 Room Air Telemetry Rhythm: Sinus Rhythm Height (Feet): 5 Height (Inches): 4.00 Weight (Kilograms): 43.000 General General Appearance: Alert, Orientated x 2, Cooperative, No Acute Distress Eyes (Brief) Eyes: FOUND: EOMI ENMT (Brief) ENMT: FOUND: mucosa moist, normal dentition, NOT FOUND: pharnyx erythema Neck (Brief) Neck: FOUND: midline, NOT FOUND: adenopathy, carotid bruits, tracheal deviation Respiratory (Brief) Respiratory: FOUND: clear all quezada, equal bilaterally, NOT FOUND: wheezes Cardiovascular (Brief) Cardiac: FOUND: regular rate, regular rhythm, NOT FOUND: murmur, pedal edema Capillary Refill: <2 sec Abdomen (Brief) Abdominal: FOUND: BS normo active x4, soft, NOT FOUND: distended, tender Lymphatic (Brief) Lymphatic: NOT FOUND: adenopathy Musculoskeletal (Brief) Musculoskeletal: NOT FOUND: tenderness Integumentary (Brief) Integumentary: FOUND: dry, pink, warm Neurologic (Brief) Neurological: FOUND: cranial 2-12 intact Psychiatric (Brief) Psychiatric: FOUND: alert, attentive, normal affect Comments Intermittent confusion Assessment & Plan Problems: (1) Encephalopathy Status: Acute (2) Postconcussive syndrome Status: Acute (3) Inability to perform activities of daily living Status: Acute (4) Scalp laceration Status: Acute (5) HTN (hypertension) Status: Chronic (6) Chronic back pain Status: Chronic (7) Compression fracture Status: Chronic (8) Hypokalemia Status: Acute Assessment & Plan: 08/27: Potassium 3.0. (9) Multiple fractures of ribs of right side Status: Acute Qualifiers: Encounter type: initial encounter Fracture type: closed Qualified Codes: S22.41XA - Multiple fractures of ribs, right side, initial encounter for closed fracture Plan/Intensity of Service 09/05/16 Continue with [place] for pain control and Lidoderm patch. Use caution as increased narcotics may cause increased confusion. Continue to encourage incentive spirometry, deep breathing and coughing to avoid pneumonia. Given multiple rib fractures. Continue to work with PT and OT for ongoing strengthening. We'll recheck CBC and BMP on Sunday 09/10. Follow blood counts and electrolytes. Code Status Do Not Resuscitate Hospital Course Summary Disclaimer The hospital course summary below is not to be considered part of the above Progress Note. Hospital Course Summary 08/29/16 In light of previous fall, accompanied with new onset of right rib pain. Will obtain a chest x-ray with right rib films. Continue to encourage patient to participate in therapy for ongoing strengthening. Scalp mallorie can be removed tomorrow 08/30 [place] for pain control 09/01/16 Continue with close needed for pain control. Do use sparingly as this does cause increased confusion. Incentive spirometry encourage hourly while awake. Discussed deep breathing and coughing to avoid pneumonia Miacalcin nasal spray and Ca with Vit D for Rib fracture pain. Continue to work on bowel motivation. Encourage work with PT and OT for ongoing strengthening 09/05/16 Continue with [place] for pain control and Lidoderm patch. Use caution as increased narcotics may cause increased confusion. Continue to encourage incentive spirometry, deep breathing and coughing to avoid pneumonia. Given multiple rib fractures. Continue to work with PT and OT for ongoing strengthening. We'll recheck CBC and BMP on Sunday 09/10. Follow blood counts and electrolytes. HOWARD RUVALCABA APRN Sep 05, 2016 16:57
--- NOTE | 2016-09-05 18:00 | NUR ---
Pain Pt. has consistently rated pain in right ribs and back area a 5-6/10 all shift. She is on scheduled pain meds. Please see eMAR. Re-positioning and heating pad implemented for comfort. GLADYS Cantrell, here to see pt. before dinner. Will continue to monitor.
--- NOTE | 2016-09-05 18:30 | NUR ---
Summary Pt. is pleasant and confused at times. She does require [id number] directions and requires some cueing. Pt. is a moderate assist x1 with FWW and gait belt. She has ambulated to and from the bathroom this shift with nursing and has ambulated the halls with therapy. She does have some anxiety with transfers at times. GLADYS Cantrell, notified of this. Pt. has denied nausea and SOA. She continues to rate right rib/back pain a 5-11/29. Pt. is on scheduled pain meds. Please see eMAR. Pt. has been continent this shift. She takes meds with applesauce. Pt. is currently resting in bed. Alarm is on. Will pass on report to overnight babysitter.
[2016-09-05] MEDS: LIDOCAINE PATCH REMOVAL TOP SCH (20:06)
[2016-09-05] MEDS: CALCIUM CARBONATE 500mg Chewable TAB PO PRN (20:37)
[2016-09-05] MEDS: GABAPENTIN 100 MG CAPSULE PO SCH (20:37)
[2016-09-05] MEDS: LATANOPROST 0.005% EYE DROPS 2.5 ML BOTTLE BOTH EYES SCH (20:43)
[2016-09-05 22:07] VITALS: BP 139/76; PULSE 60; RESP 18; TEMP 97.9; O2SAT 99
[2016-09-06] MEDS: HYDROCODONE/APAP 5 mg/325 mg TABLET PO SCH ×4 (00:52→18:50)
--- NOTE | 2016-09-06 06:45 | NUR ---
Summary Pt ambulated last night to BR. Pt required cuing for use of walker and when sitting. Pt had pain managed with scheduled [place] 5's. Fluid restrictions maintained. Pt resting in bed at this time
[2016-09-06 08:00] VITALS: BP 150/73; PULSE 70; RESP 16; TEMP 97.7; O2SAT 96
[2016-09-06] MEDS: CALCIUM 600mg + VIT D 400 TABLET PO SCH ×2 (08:54→20:27)
[2016-09-06] MEDS: CALCITONIN NASAL SPRAY 200 UNITS NAS SCH (08:54)
[2016-09-06] MEDS: DOCUSATE SODIUM 100 MG CAPSULE PO SCH ×2 (08:54→20:27)
[2016-09-06] MEDS: POTASSIUM CHLORIDE 20 MEQ TABLET PO SCH (08:54)
[2016-09-06] MEDS: LIDOCAINE 5% PATCH TOP SCH (08:55)
[2016-09-06] MEDS: POLYETHYL.GLYCOL 3350 PACKET 17gm PO SCH (08:55)
[2016-09-06] MEDS: TRAMADOL 50 MG TABLET PO PRN (10:43)
[2016-09-06 15:58] VITALS: BP 172/91; PULSE 76; RESP 12; TEMP 98.4; O2SAT 96
--- NOTE | 2016-09-06 18:31 | NUR ---
Shift Summary Patient propelled wheelchair from lunch with supervision. Ambulated to supper and back to room with min assist, gait belt, FWW. Transfers with gait belt, min to stand by assist. Pain medication scheduled. Bathing with set up assist for upper body, min assist for lower body. Dressing upper body with set up assist. Lower body dressing with mod assist. Incontinent of urine x1 assist. Wears pull ups and pads. Max assist with incontinence management. Incentive spirometer used every hour while awake.
[2016-09-06] MEDS: LATANOPROST 0.005% EYE DROPS 2.5 ML BOTTLE BOTH EYES SCH (20:27)
[2016-09-06] MEDS: GABAPENTIN 100 MG CAPSULE PO SCH (20:27)
[2016-09-06] MEDS: LIDOCAINE PATCH REMOVAL TOP SCH (20:29)
[2016-09-06 21:06] VITALS: BP 126/75; PULSE 90; RESP 16; TEMP 98.1; O2SAT 99
[2016-09-07] MEDS: HYDROCODONE/APAP 5 mg/325 mg TABLET PO SCH ×4 (01:50→18:31)
--- NOTE | 2016-09-07 03:01 | NUR ---
Bladder Accident Incontinence of bladder requiring changing of brief and soiled bed pad. Gena care provided.
--- NOTE | 2016-09-07 06:45 | NUR ---
Summary When asked how she slept the pt stated "like I was ". Pt has ambulated to the BR with FWW gb and 1 assist. Pt has denied pain, scheduled [place] 5's given. Pt able to take meds with sips of water. fluid restriction maintained. Pt is awake, resting in bed at this time.
[2016-09-07 08:00] VITALS: BP 146/75; PULSE 83; RESP 18; TEMP 97.8; O2SAT 98
[2016-09-07] MEDS: POTASSIUM CHLORIDE 20 MEQ TABLET PO SCH (08:54)
[2016-09-07] MEDS: CALCITONIN NASAL SPRAY 200 UNITS NAS SCH (08:54)
[2016-09-07] MEDS: CALCIUM 600mg + VIT D 400 TABLET PO SCH ×2 (08:54→21:00)
[2016-09-07] MEDS: LIDOCAINE 5% PATCH TOP SCH (08:55)
[2016-09-07] MEDS: POLYETHYL.GLYCOL 3350 PACKET 17gm PO SCH (08:55)
[2016-09-07] MEDS: DOCUSATE SODIUM 100 MG CAPSULE PO SCH ×2 (08:55→21:00)
--- NOTE | 2016-09-07 09:52 | PNPDOC ---
Subjective Date DATE: 09/07/16 TIME: 09:42 Subjective Sana is seen today while waiting on breakfast. She is alert and joking with other patinets at the table. She denies having any current pain or shortness of breath. She continues to maintain good saturations on room air 98%. She is good about using incentive spirometry. Continues to be incontinent of urine and bowels are moving regularly. BP 146/75. Objective Vital Signs Vital signs Vital Signs Date Time Temp Pulse Resp B/P Pulse Ox O2 Delivery O2 Flow Rate FiO2 09/07/16 08:00 97.8 83 18 146/75 98 Room Air Telemetry Rhythm: Sinus Rhythm Height (Feet): 5 Height (Inches): 4.00 Weight (Kilograms): 43.000 General General Appearance: Alert, Orientated x 3, Cooperative, No Acute Distress Eyes (Brief) Eyes: FOUND: EOMI ENMT (Brief) ENMT: FOUND: mucosa moist, normal dentition, NOT FOUND: pharnyx erythema Neck (Brief) Neck: FOUND: midline, NOT FOUND: adenopathy, carotid bruits, tracheal deviation Respiratory (Brief) Respiratory: FOUND: clear all quezada, equal bilaterally, NOT FOUND: wheezes Comments Slight diminished in bases Cardiovascular (Brief) Cardiac: FOUND: regular rate, regular rhythm, NOT FOUND: murmur, pedal edema Capillary Refill: <2 sec Abdomen (Brief) Abdominal: FOUND: BS normo active x4, soft, NOT FOUND: distended, tender Lymphatic (Brief) Lymphatic: NOT FOUND: adenopathy Musculoskeletal (Brief) Musculoskeletal: NOT FOUND: tenderness Integumentary (Brief) Integumentary: FOUND: dry, pink, warm Neurologic (Brief) Neurological: FOUND: cranial 2-12 intact Psychiatric (Brief) Psychiatric: FOUND: alert, attentive, normal affect, oriented Assessment & Plan Problems: (1) Encephalopathy Status: Acute (2) Postconcussive syndrome Status: Acute (3) Inability to perform activities of daily living Status: Acute (4) Scalp laceration Status: Acute (5) HTN (hypertension) Status: Chronic (6) Chronic back pain Status: Chronic (7) Compression fracture Status: Chronic (8) Hypokalemia Status: Acute Assessment & Plan: 08/27: Potassium 3.0. (9) Multiple fractures of ribs of right side Status: Acute Qualifiers: Encounter type: initial encounter Fracture type: closed Qualified Codes: S22.41XA - Multiple fractures of ribs, right side, initial encounter for closed fracture Plan/Intensity of Service 09/07/16 Continue with oral [place] and topical Lidoderm patch for pain control. Also PRN Ultram if needed. Monitor mentation as patient has had some confusion which may be worsened with narcotic use. Continue with hourly Incentive spirometry, deep breathing and coughing given multiple rib fractures. Colace BID for ongoing bowel motivation Continue to work with PT and OT for ongoing strengthening. Check CBC and BMP on Sunday 09/10. Follow blood counts and electrolytes. Code Status Do Not Resuscitate Hospital Course Summary Disclaimer The hospital course summary below is not to be considered part of the above Progress Note. Hospital Course Summary 08/29/16 In light of previous fall, accompanied with new onset of right rib pain. Will obtain a chest x-ray with right rib films. Continue to encourage patient to participate in therapy for ongoing strengthening. Scalp mallorie can be removed tomorrow 08/30 [place] for pain control 09/01/16 Continue with close needed for pain control. Do use sparingly as this does cause increased confusion. Incentive spirometry encourage hourly while awake. Discussed deep breathing and coughing to avoid pneumonia Miacalcin nasal spray and Ca with Vit D for Rib fracture pain. Continue to work on bowel motivation. Encourage work with PT and OT for ongoing strengthening 09/05/16 Continue with [place] for pain control and Lidoderm patch. Use caution as increased narcotics may cause increased confusion. Continue to encourage incentive spirometry, deep breathing and coughing to avoid pneumonia. Given multiple rib fractures. Continue to work with PT and OT for ongoing strengthening. We'll recheck CBC and BMP on Sunday 09/10. Follow blood counts and electrolytes. HOWARD RUVALCABA APRN Sep 07, 2016 09:47
[2016-09-07] MEDS: TRAMADOL 50 MG TABLET PO PRN ×2 (14:22→21:01)
[2016-09-07 15:54] VITALS: BP 156/93; PULSE 70; RESP 18; TEMP 98.1; O2SAT 92
--- NOTE | 2016-09-07 16:37 | PNPDOC ---
IRU Subjective Date DATE: 09/07/16 TIME: 16:32 Subjective Feels she is improving. Fewer headaches, better focus, working with PT and OT to increase strength. Had rest day today. IRU Objective Vital Signs Vital signs Vital Signs Date Time Temp Pulse Resp B/P Pulse Ox O2 Delivery O2 Flow Rate FiO2 09/07/16 15:54 98.1 70 18 156/93 92 Room Air Telemetry Rhythm: Sinus Rhythm Height (Feet): 5 Height (Inches): 4.00 Weight (Kilograms): 43.000 General General Appearance: Alert, Orientated x 2 Respiratory (Brief) Respiratory: FOUND: clear all quezada, equal bilaterally Cardiovascular (Brief) Cardiac: FOUND: regular rate, regular rhythm, NOT FOUND: pedal edema Capillary Refill: <2 sec Integumentary (Brief) Comments Incision on scalp healling approp. No sign of cellulitis. Psychiatric (Brief) Psychiatric: FOUND: normal affect Assessment & Plan Problems: (1) Encephalopathy Status: Acute Assessment & Plan: Managed by medical, improving. (2) Postconcussive syndrome Status: Acute Assessment & Plan: Continues to improve. Headaches improving. (3) Weakness of both lower extremities Status: Acute Assessment & Plan: Workign with PT and OT and improving in strength. Rest day today (4) UTI (urinary tract infection) Status: Chronic (5) Ribs, multiple fractures Assessment & Plan: Workign with PT and OT to increase overall strength despite limitations from rib fx. Fx stable. DVT Prophylaxis: CARLOS EDUARDO Fung Code Status Do Not Resuscitate Interventions to Obtain Goals PT Treatment Plan: Therapeutic Exercise, Gait Training, Functional Activities , Patient/Family Education, Balance/Proprioception OT Treatment Plan: ADL's (basic care), Ther. Exercise for ADL's, UE Functional Training, Balance Training, Pt./Family Education ST Treatment Plan: Cognitive Linguistic Tx Hospital Course Summary Disclaimer The hospital course summary below is not to be considered part of the above Progress Note. Hospital Course Summary 08/29/16 In light of previous fall, accompanied with new onset of right rib pain. Will obtain a chest x-ray with right rib films. Continue to encourage patient to participate in therapy for ongoing strengthening. Scalp mallorie can be removed tomorrow 08/30 [place] for pain control 09/01/16 Continue with close needed for pain control. Do use sparingly as this does cause increased confusion. Incentive spirometry encourage hourly while awake. Discussed deep breathing and coughing to avoid pneumonia Miacalcin nasal spray and Ca with Vit D for Rib fracture pain. Continue to work on bowel motivation. Encourage work with PT and OT for ongoing strengthening 09/05/16 Continue with [place] for pain control and Lidoderm patch. Use caution as increased narcotics may cause increased confusion. Continue to encourage incentive spirometry, deep breathing and coughing to avoid pneumonia. Given multiple rib fractures. Continue to work with PT and OT for ongoing strengthening. We'll recheck CBC and BMP on Sunday 09/10. Follow blood counts and electrolytes. AYLEEN IZAGUIRRE MD Sep 07, 2016 16:36
--- NOTE | 2016-09-07 18:43 | NUR ---
Shift summary Patient ambulating with min assist, FWW, gait belt to all meals today. Continent of bladder this shift, wears pull ups. Patient on scheduled pain medication, lidocaine patch to upper right back. Patient set up assist for upper body dressing, mod assist for lower body dressing. Wears glasses.
[2016-09-07 20:00] VITALS: BP 146/72; PULSE 89; RESP 16; TEMP 98.4; O2SAT 99
[2016-09-07] MEDS: LIDOCAINE PATCH REMOVAL TOP SCH (21:00)
[2016-09-07] MEDS: LATANOPROST 0.005% EYE DROPS 2.5 ML BOTTLE BOTH EYES SCH (21:00)
[2016-09-07] MEDS: GABAPENTIN 100 MG CAPSULE PO SCH (21:00)
--- NOTE | 2016-09-07 22:56 | NUR ---
Chart Check 24 hour chart check completed
[2016-09-08] MEDS: HYDROCODONE/APAP 5 mg/325 mg TABLET PO SCH ×5 (00:34→20:33)
[2016-09-08 02:09] VITALS: PULSE 87; PULSE 89; RESP 16
[2016-09-08 05:24] LABS: HCT - HEMATOCRIT 27.1 % (36-46); HGB - HEMOGLOBIN 8.3 GM/DL (12-16); MEAN CORPUSCULAR HGB 27.3 UUG (26-34); MEAN CORPUSCULAR HGB CONC(MCHC 30.6 GM/DL (31-37); MEAN CORPUSCULAR VOLUME 89.1 UM3 (80-100); MEAN PLATELET VOLUME 10.6 UM3 (9.4-12.4); RED BLOOD COUNT 3.04 M/MM3 (4.00-5.20); WBC - WHITE BLOOD COUNT 4.3 T/MM3 (4.5-11.0)
[2016-09-08 05:34] LABS: ANION GAP 5 MEQ/L (5-15); CHLORIDE 105 MEQ/L (98-107); CO2 - CARBON DIOXIDE 27 MEQ/L (22-30); CREATININE 0.7 MG/DL (0.7-1.2); SODIUM 137 MEQ/L (134-144)
[2016-09-08 05:35] LABS: BUN/CREATININE RATIO 26 RATIO (6-26); CALCIUM 8.6 MG/DL (8.4-10.2); GLOMERULAR FILTRATION RATE 79; GLUCOSE 89 MG/DL (65-110)
[2016-09-08 06:38] LABS: EOSINOPHILS # (MANUAL) 0.1 T/MM3 (0-0.5); LYMPHOCYTES # (MANUAL) 1.3 T/MM3 (1-4.8); MONOCYTES # (MANUAL) 0.8 T/MM3 (0-0.8); TOTAL CELLS COUNTED 100 %
[2016-09-08 06:39] LABS: ANISOCYTOSIS 1+; BURR CELLS 1+; HELMET CELLS 1+; POIKILOCYTOSIS 2+; SCHISTOCYTES 1+
--- NOTE | 2016-09-08 06:53 | NUR ---
Summary Sana is a pleasant and cooperative pt. She is alert and oriented x three. She has been continent of bladder with min assist with clothing management.She has been given one prn ultram and she has received scheduled pain meds with adequate pain management. She ambulates and transfers with hand held assist of one staff gaitbelt and fww. When in bed sr up x two ,bedalarms intact and SCDs to bilateral lower extremities. [place] to her upper torso for comfort.
[2016-09-08 08:24] VITALS: BP 140/77; PULSE 89; RESP 18; TEMP 98.2; O2SAT 96
[2016-09-08 10:13] VITALS: PULSE 89; RESP 18
[2016-09-08] MEDS: DOCUSATE SODIUM 100 MG CAPSULE PO SCH ×2 (10:13→20:33)
[2016-09-08] MEDS: POTASSIUM CHLORIDE 20 MEQ TABLET PO SCH (10:13)
[2016-09-08] MEDS: POLYETHYL.GLYCOL 3350 PACKET 17gm PO SCH (10:13)
[2016-09-08] MEDS: CALCIUM 600mg + VIT D 400 TABLET PO SCH ×2 (10:13→20:31)
--- NOTE | 2016-09-08 10:13 | NUR ---
Malnutrition risk F/U Diet: Regular Average daily intake past three days was 937kcal Calorie needs based on [place] . Mikayla with an activity factor: 1.3 and injury factor: 1.0 is 1110 Nurses reported that Ms. Mcgee was not eating her daily snacks during the weekend. Patient stated that she didn't like the strawberry mighty shakes that were added to her daily snack order. She said she enjoyed the strawberry flavor but did not care for the sweetness of the mighty shake. She is willing to try the NSA strawberry mighty shake for her daily snack order. Dietetic student ordered yogurt for HS snack and NSA strawberry mighty shake for snack @ 10,2 RD available at 1406 Addendum: 09/08/16 at [address] Est daily kcal need: 1110 kcal. Student charting reviewed by
[2016-09-08] MEDS: CALCITONIN NASAL SPRAY 200 UNITS NAS SCH (10:14)
[2016-09-08] MEDS: LIDOCAINE 5% PATCH TOP SCH (10:14)
--- NOTE | 2016-09-08 14:18 | STDAILYN ---
ST Daily Note Date/Time DATE: 09/08/16 TIME: 11:41 Subjective Comment Sana was in a pleasant mood this morning and was ready to work with heat reader, Nila, with supervision by SPRING COILER [place]. Orientations: x 3, Alert, Cooperative, Motivated Chief Complaint: Encephalopathy Pain: No (Pt. reported no pain) Was Patient Education Provided: Yes Person(s) Educated: Patient Education Subject: Treatment Plan Instruction Understanding Demo: Pt. verbalizes understand Education Comment Pt. was educated on therapy goals of following directions, listening to short stories and recalling facts, and recalling daily events into her memory book. Written orientation was added to her whiteboard. *Speech Therapy Impressions 1. Pt will recall 80% of daily activities in memory book in 4/5 sessions. Pt. recalled three events with 100% accuracy of her morning activities: working in the dining room, eating breakfast (i.e. cereal and coffee), and completing her morning physical therapy tasks. 2. Pt will listen to a short story and recall 3 facts with 80% accuracy. Task not targeted during therapy today. 3. Pt will follow a three step direction with 80% accuracy. Reading: Pt. demonstrated 60% accuracy for following 2-step directions. Pt. demonstrated moderate difficulty following two steps, so the clinician modified the task by completing one direction at a time and providing phonemic cues. A strategy used during this activity was to cover up other directions on the sheet so the Pt. could focus on one step at a time. 3-step directions were also trialed . Pt. exhibited 60% accuracy; however, she required max. prompting from the clinician. The patient demonstrated semantic paraphasias (i.e. lower [place] for square). ST Treatment Plan: Cognitive Linguistic Tx ST Treatment Plan Frequency: five times per week Treatment Plan Duration: one week Plan of Care Comment: Continue Plan of Care Start Treatment 1: 11:05 Stop Treatment 1: 11:35 Treatment Duration : ST Treatment Charge: Speech Treatment Minutes of Individual Therapy: 30 ST FIM Comprehension Ability: 3 Moderate Assistance Social Interaction: 6 Modified [place] Problem [place]vin Minimal Assistance Memory: 4 Minimal Assistance Expression Ability: 5 Supervision/Setup Swallowin Modified [place] NILA JACKSON Sep 08, 2016 11:51
[2016-09-08 16:11] VITALS: BP 150/86; PULSE 85; RESP 14; TEMP 98.1; O2SAT 99
--- NOTE | 2016-09-08 18:57 | NUR ---
Summary Pt. is pleasant and A/O. She is on RA. I.S. encouraged. She does have some confusion at times and requires [id number] directions and encouragement. Pt. is a mod assist transfer x1 with FWW and gait belt. She is continent. Pt. takes meds whole with applesauce.Pt. has rated right rib pain consistently between a 6-8/10 all shift. She is on scheduled pain meds. Please see eMAR. Heating pad and re-positioning implemented for comfort. Pt. is currently sitting up in the recliner. Alarm is on. Will pass on report to third shift lieutenant.
[2016-09-08] MEDS: CALCIUM CARBONATE 500mg Chewable TAB PO PRN (20:31)
[2016-09-08] MEDS: LATANOPROST 0.005% EYE DROPS 2.5 ML BOTTLE BOTH EYES SCH (20:31)
[2016-09-08] MEDS: GABAPENTIN 100 MG CAPSULE PO SCH (20:33)
[2016-09-08] MEDS: LIDOCAINE PATCH REMOVAL TOP SCH (20:33)
[2016-09-08 21:06] VITALS: BP 132/70; PULSE 76; RESP 18; TEMP 98.1; O2SAT 94
--- NOTE | 2016-09-08 21:39 | PNPDOC ---
IRU Subjective Date DATE: 09/08/16 TIME: 21:36 Subjective Up in song today. Working with PT and OT. IRU Objective Vital Signs Vital signs Vital Signs Date Time Temp Pulse Resp B/P Pulse Ox O2 Delivery O2 Flow Rate FiO2 09/08/16 21:06 98.1 76 18 132/70 94 Room Air Telemetry Rhythm: Sinus Rhythm Height (Feet): 5 Height (Inches): 4.00 Weight (Kilograms): 43.000 General General Appearance: Alert, Orientated x 2 Respiratory (Brief) Respiratory: FOUND: clear all [place], equal bilaterally Comments Pain with Deep breath. Cardiovascular (Brief) Cardiac: FOUND: regular rate, regular rhythm Capillary Refill: <2 sec Laboratory Laboratory Laboratory Tests Test 09/08/16 04:55 White Blood Count 4.3T/MM3 Red Blood Count 3.04M/MM3 Hemoglobin 8.3GM/DL Hematocrit 27.1% Mean Corpuscular Volume 89.1UM3 Mean Corpuscular Hemoglobin 27.3UUG Mean Corpuscular Hemoglobin Concent 30.6GM/DL RDW Standard Deviation 58.6FL Platelet Count 303T/MM3 Mean Platelet Volume 10.6UM3 Immature Granulocyte % (Auto) % Neutrophils (%) (Auto) % Lymphocytes (%) (Auto) % Monocytes (%) (Auto) % Eosinophils (%) (Auto) % Basophils (%) (Auto) % Absolute Immature Granulocyte (auto T/MM3 Absolute Neutrophils (auto) T/MM3 Absolute Lymphocytes (auto) T/MM3 Absolute Monocytes (auto) T/MM3 Absolute Eosinophils (auto) T/MM3 Absolute Basophils (auto) T/MM3 Neutrophils % (Manual) 47.0% Lymphocytes % (Manual) 31.0% Monocytes % (Manual) 19.0% Eosinophils % (Manual) 3.0% Absolute Neutrophils (Manual) 2.0T/MM3 Lymphocytes # (Manual) 1.3T/MM3 Monocytes # (Manual) 0.8T/MM3 Eosinophils # (Manual) 0.1T/MM3 Poikilocytosis 2+ Anisocytosis 1+ Helmet Cells 1+ Hardeep Cells 1+ Schistocytes 1+ Red Cell Morphology Comment Abnormal Turbidity < 20 Sodium Level 137MEQ/L Potassium Level 4.0MEQ/L Chloride Level 105MEQ/L Carbon Dioxide Level 27MEQ/L Anion Gap 5MEQ/L Blood Urea Nitrogen 18.0MG/DL Creatinine 0.7MG/DL Glomerular Filtration Rate Calc 79 BUN/Creatinine Ratio 26RATIO Glucose Level 89MG/DL Calculated Osmolality 265MOSM/KG Calcium Level 8.6MG/DL Icterus Index < 2 Chemistry Specimen Hemolysis < 15 Assessment & Plan Problems: (1) Encephalopathy Status: Acute Assessment & Plan: Stable. followed by medical. (2) Postconcussive syndrome Status: Acute Assessment & Plan: Cont with intermittent headache. Improving overall. (3) Weakness of both lower extremities Status: Acute Assessment & Plan: FIM scores improving. Pt increasing distance adn stamina. COnt with PT and OT. (4) UTI (urinary tract infection) Status: Chronic (5) Ribs, multiple fractures Assessment & Plan: Pain stable. Code Status Do Not Resuscitate Interventions to Obtain Goals PT Treatment Plan: Therapeutic Exercise, Gait Training, Functional Activities , Patient/Family Education, Balance/Proprioception OT Treatment Plan: ADL's (basic care), Ther. Exercise for ADL's, UE Functional Training, Balance Training, Pt./Family Education ST Treatment Plan: Cognitive Linguistic Tx Hospital Course Summary Disclaimer The hospital course summary below is not to be considered part of the above Progress Note. Hospital Course Summary 08/29/16 In light of previous fall, accompanied with new onset of right rib pain. Will obtain a chest x-ray with right rib films. Continue to encourage patient to participate in therapy for ongoing strengthening. Scalp mallorie can be removed tomorrow 08/30 [place] for pain control 09/01/16 Continue with close needed for pain control. Do use sparingly as this does cause increased confusion. Incentive spirometry encourage hourly while awake. Discussed deep breathing and coughing to avoid pneumonia Miacalcin nasal spray and Ca with Vit D for Rib fracture pain. Continue to work on bowel motivation. Encourage work with PT and OT for ongoing strengthening 09/05/16 Continue with [place] for pain control and Lidoderm patch. Use caution as increased narcotics may cause increased confusion. Continue to encourage incentive spirometry, deep breathing and coughing to avoid pneumonia. Given multiple rib fractures. Continue to work with PT and OT for ongoing strengthening. We'll recheck CBC and BMP on Sunday 09/10. Follow blood counts and electrolytes. AYLEEN IZAGUIRRE MD Sep 08, 2016 21:39
[2016-09-08 21:40] VITALS: RESP 18
[2016-09-09] MEDS: HYDROCODONE/APAP 5 mg/325 mg TABLET PO SCH ×2 (06:39→13:18)
[2016-09-09 08:00] VITALS: PULSE 76; RESP 18
[2016-09-09] MEDS: POLYETHYL.GLYCOL 3350 PACKET 17gm PO SCH (09:00)
[2016-09-09] MEDS: DOCUSATE SODIUM 100 MG CAPSULE PO SCH (09:00)
[2016-09-09] MEDS: CALCITONIN NASAL SPRAY 200 UNITS NAS SCH (09:31)
[2016-09-09] MEDS: LIDOCAINE 5% PATCH TOP SCH (09:31)
[2016-09-09] MEDS: CALCIUM 600mg + VIT D 400 TABLET PO SCH (09:32)
[2016-09-09] MEDS: POTASSIUM CHLORIDE 20 MEQ TABLET PO SCH (09:32)
[2016-09-09 09:36] VITALS: BP 150/75; PULSE 70; RESP 14; TEMP 98.1; O2SAT 98
[2016-09-09] MEDS: TRAMADOL 50 MG TABLET PO PRN (09:39)
[2016-09-09] MEDS ORDERED: HYDR-4246 PO (10:11)
[2016-09-09] MEDS ORDERED: TRAM50TA4 PO (10:11)
[2016-09-09] MEDS ORDERED: LISINOPRIL 5 MG TABLET PO ONE (11:00)
--- NOTE | 2016-09-09 11:06 | PNPDOC ---
Subjective Date DATE: 09/09/16 TIME: 10:48 Subjective Mrs. Mcgee is seen today in follow up for her recent head injury and encephalopathy. She is seen in her room and complains of her usual right rib pain. She denies any new concerns or complaints including no chest pain, abdominal pain, shortness of breath, nausea, vomiting or dysuria. Her appetite is stable and bowels are moving. Nursing notes reviewed and indicate that overall she appears to be doing well. Dietary noted that she has not been consuming enough calories per day - average consumption of 950kcal daily and calculated need at 1100 kcal. She has been encouraged to increase snacks and mighty shakes. Recent labs on 09/08 showed new leukopenia with WBC at 4.3, slight worsening of anemia with hemoglobin decreased to 8.3 and platelets 303. BMP was relatively unremarkable with the exception of slightly elevated BUN at 18. Vital signs this AM showed persistent hypertension with blood pressure at 150/75. Objective Vital Signs Vital signs Vital Signs Date Time Temp Pulse Resp B/P Pulse Ox O2 Delivery O2 Flow Rate FiO2 09/09/16 09:36 98.1 70 14 150/75 98 Room Air Telemetry Rhythm: Sinus Rhythm Height (Feet): 5 Height (Inches): 4.00 Weight (Kilograms): 43.000 General General Appearance: Alert, Orientated x 3, Cooperative, No Acute Distress Eyes (Brief) Eyes: FOUND: PERRL, NOT FOUND: scleral icterus ENMT (Brief) ENMT: FOUND: mucosa moist Neck (Brief) Neck: FOUND: midline, NOT FOUND: nuchal rigidity, tracheal deviation Respiratory (Brief) Respiratory: FOUND: clear all [place], equal bilaterally, symmetrical, NOT FOUND : rales, wheezes Cardiovascular (Brief) Cardiac: FOUND: regular rate, regular rhythm Abdomen (Brief) Abdominal: FOUND: BS normo active x4, soft, NOT FOUND: distended, tender Extremities (Brief) Extremity : Side: Bilateral Extremity: leg Extremity Finding: NOT FOUND: deformity Lymphatic (Brief) Lymphatic: NOT FOUND: lymphedema Musculoskeletal (Brief) Musculoskeletal: FOUND: extremities move equally, NOT FOUND: deformity, loss of motion Integumentary (Brief) Integumentary: FOUND: dry, pink, warm Comments afebrile Psychiatric (Brief) Psychiatric: FOUND: alert, attentive, oriented Laboratory Laboratory Laboratory Tests 09/08/16 04:55 Laboratory Tests 09/08/16 04:55 Assessment & Plan Problems: (1) Encephalopathy Status: Acute (2) Postconcussive syndrome Status: Acute (3) Inability to perform activities of daily living Status: Acute (4) Scalp laceration Status: Acute (5) HTN (hypertension) Status: Chronic (6) Chronic back pain Status: Chronic (7) Compression fracture Status: Chronic (8) Hypokalemia Status: Resolved Assessment & Plan: 08/27: Potassium 3.0. (9) Multiple fractures of ribs of right side Status: Acute Qualifiers: Encounter type: initial encounter Fracture type: closed Qualified Codes: S22.41XA - Multiple fractures of ribs, right side, initial encounter for closed fracture Plan/Intensity of Service 09/09/16: [place]. Recent fall with head injury, postconcussive syndrome and encephalopathy: * Continue to encourage therapies per Dr. Waller. * Provide safe and supportive environment. * Continue with oral [place] and topical Lidoderm patch for pain control - avoid additional narcotics as they may contribute to her confusion. * Continue to monitor mentation. Acute rib fractures: * Continue to encourage hourly incentive spirometry for pulmonary toileting in light of rib fractures and increased risk for pneumonia. Hypertension: * Blood pressure remains elevated with systolic around 140-150. * Will initiate lisinopril 5mg daily and continue to monitor blood pressure closely. Chronic pain: * Continue pain control per Dr. Waller. Constipation: * Colace BID for ongoing bowel motivation Anemia: * Hgb decreased to 8.3 on 09/08/16. Patient remain asymptomatic. * Will continue to monitor closely and recheck in AM to monitor blood counts as new leukopenia noted (WBC 4.3). Code Status Do Not Resuscitate Hospital Course Summary Disclaimer The hospital course summary below is not to be considered part of the above Progress Note. Hospital Course Summary 08/29/16 In light of previous fall, accompanied with new onset of right rib pain. Will obtain a chest x-ray with right rib films. Continue to encourage patient to participate in therapy for ongoing strengthening. Scalp mallorie can be removed tomorrow 08/30 [place] for pain control 09/01/16 Continue with close needed for pain control. Do use sparingly as this does cause increased confusion. Incentive spirometry encourage hourly while awake. Discussed deep breathing and coughing to avoid pneumonia Miacalcin nasal spray and Ca with Vit D for Rib fracture pain. Continue to work on bowel motivation. Encourage work with PT and OT for ongoing strengthening 09/05/16 Continue with [place] for pain control and Lidoderm patch. Use caution as increased narcotics may cause increased confusion. Continue to encourage incentive spirometry, deep breathing and coughing to avoid pneumonia. Given multiple rib fractures. Continue to work with PT and OT for ongoing strengthening. We'll recheck CBC and BMP on Sunday 09/10. Follow blood counts and electrolytes. 09/09/16: [place]. Recent fall with head injury, postconcussive syndrome and encephalopathy: * Continue to encourage therapies per Dr. Waller. * Provide safe and supportive environment. * Continue with oral [place] and topical Lidoderm patch for pain control - avoid additional narcotics as they may contribute to her confusion. * Continue to monitor mentation. Acute rib fractures: * Continue to encourage hourly incentive spirometry for pulmonary toileting in light of rib fractures and increased risk for pneumonia. Hypertension: * Blood pressure remains elevated with systolic around 140-150. * Will initiate lisinopril 5mg daily and continue to monitor blood pressure closely. Chronic pain: * Continue pain control per Dr. Waller. Constipation: * Colace BID for ongoing bowel motivation Anemia: * Hgb decreased to 8.3 on 09/08/16. Patient remain asymptomatic. * Will continue to monitor closely and recheck in AM to monitor blood counts as new leukopenia noted (WBC 4.3). ELBA FABIAN Sep 09, 2016 10:52
[2016-09-09] MEDS ORDERED: POLY17PO18 PO (11:11)
[2016-09-09] MEDS ORDERED: LIDO700A3 TOP ×2 (11:11)
[2016-09-09] MEDS ORDERED: POTA20TA10 PO (11:11)
[2016-09-09] MEDS ORDERED: CALC-747 PO (11:11)
[2016-09-09] MEDS ORDERED: CALC3.7S NAS (11:11)
[2016-09-09] MEDS ORDERED: LISI-625 PO (11:11)
--- NOTE | 2016-09-09 11:19 | PDOCECFAO ---
Admission Orders Admission Orders Admit to: [facility] Allergies: Coded Allergies: sulfamethoxazole (Unverified Allergy, Unknown, UNKNOWN, 08/23/16) trimethoprim (Unverified Allergy, Unknown, 08/23/16) Admitting Diagnosis Encephalopathy Admitting Physician Jatin Waller MD Code Status Do Not Resuscitate Anticipated LOS: 30 days or less Rehab Potential: Fair Rehab Prognosis: Fair Diet: Regular Wound/Incision Care: None Evaluations/Treat: Speech, PT, OT [facility] Certification I certify that SNF services are required to be given on an Inpatient basis because of the patients need for care home care on a continuing basis for the condition(s) for which he/she received inpatient hospital services prior to his/her transfer to the SNF. SNF inpatient care is necessary for the following reasons Other (PT,OT,ST) HOWARD RUVALCABA APRN Sep 09, 2016 11:19
--- NOTE | 2016-09-09 12:07 | NUR ---
HITESH SPOKE WITH SAJAN AT [facility]; SHE SAID PT IS ACCEPTED AND CAN TRANSFER. PLANNED 2 PM FAMILY SERVICE WORKER TIME. SPOKE WITH PT ABOUT THIS. RE-EXPLAINED HER DC PLAN, AND SHE WAS AGREEABLE TO THIS. CALLED HER DAUGHTER, UPDATED HER. SHE WAS VERY AGREEABLE AND THANKED THIS WORKER. SHE SAID SHE WILL BE HERE THIS AFTERNOON TO BE WITH PT. REVIEWED IM LETTER WITH HER OVER PHONE; SIGNED IT VERBALLY. SHE HAD NO QUESTIONS/CONCERNS ABOUT THIS. Addendum: 09/09/16 at 1208 by ANA LARIOS Amended: Links added.
--- NOTE | 2016-09-09 13:12 | NUR ---
CM TIME OUT COMPLETED WITH RN. CALL FROM MASTER AT [facility]; SHE SAID BUILDING INSPECTION ENGINEER TIME WILL NOW BE BETWEEN 2:15-3 PM. RELAYED THIS TO DAUGHTER ARIANA.
--- NOTE | 2016-09-09 13:40 | NUR ---
CM CALL FROM SAJAN AT [facility]; SHE SAID SHE RECEIVED THE ORDERS AND SHE JUST NEEDS THE CARE ASSESSMENT FAXED. THIS WILL BE FAXED.
--- NOTE | 2016-09-09 13:59 | STDAILYN ---
ST Daily Note Date/Time DATE: 09/09/16 TIME: 11:00 Subjective Comment Sana was in a good mood this morning. She accepted to have director packaging , Nila, provide therapy while being supervised my PRODUCT DEVELOPMENT SPECIALIST Melba. Pt. reported this afternoon she will be placed at [facility]. Orientations: x 3, Alert, Cooperative, Motivated Chief Complaint: Encephalopathy Pain: No (Pt. reported to having no pain today) Was Patient Education Provided: Yes Person(s) Educated: Patient Education Subject: Treatment Plan Instruction Understanding Demo: Pt. verbalizes understand Education Comment Patient was educated on her goals of recalling events of her daily activities, following 1-3 step directions, and recalling facts after listening to a short story. *Speech Therapy Impressions 1. Pt will recall 80% of daily activities in memory book in 4/5 sessions. The Pt. recalled 3 events of her morning with no difficulty. Reported she woke up early, ate breakfast (consisted of pancakes, scrambled eggs, and coffee), then went back to her room to get ready for the rest of the day. 2. Pt will listen to a short story and recall 3 facts with 80% accuracy. The Pt. demonstrated 66% accuracy for recalling 3 facts after listening to the graduate clinician read her short stories. She required moderate prompting via choices and phonemic cues. Pt. declined to reading stories aloud due to her vision. 3. Pt will follow a three step direction with 80% accuracy. Not targeted during therapy ST Treatment Plan: Cognitive Linguistic Tx ST Treatment Plan Frequency: five times per week Treatment Plan Duration: one week Plan of Care Comment: Pt. plans to discharge to [facility]. this afternoon Start Treatment 1: 10:25 Stop Treatment 1: 10:55 Treatment Duration : ST Treatment Charge: Speech Treatment Minutes of Individual Therapy: 30 ST FIM Comprehension Ability: 4 Minimal Assistance Social Interaction: 6 Modified [place] Problem Solvin Minimal Assistance Memory: 4 Minimal Assistance Expression Ability: 5 Supervision/Setup Swallowin Modified [place] NILA JACKSON Sep 09, 2016 11:06
--- NOTE | 2016-09-09 14:07 | STDAILYN ---
Discharge Note Date/Time DATE: 09/09/16 TIME: 13:57 Discharge From: Inpatient ST Reason for Discharge: Transf. to Diff. Facility Discharge Destination: Other IRU Facility ([facility]. ) Discharge Summary: Patient is being discharged to [facility]. Sana made inconsistant progress throughout her stay so speech therapy is recommended to be continued at this new placement. Recommended Follow-up: Cont. Therapy in [place] [facility] ST FIM Comprehension Ability: 4 Minimal Assistance Social Interaction: 6 Modified [place] Problem Solvin Minimal Assistance Memory: 4 Minimal Assistance Expression Ability: 5 Supervision/Setup Swallowin Modified [place] NILA JACKSON Sep 09, 2016 13:58
--- NOTE | 2016-09-09 15:11 | NUR ---
Activity Patient ambulating with FWW, gait belt, min assist. Patient needs cues for walker placement with transfers. Set up assist wit upper body dressing. Mod assist with lower body dressing. Grooming with stand by assist at sink for safety. Feeds self her regular diet. Takes large pills with applesauce. Occasional incontinence of urine, continent of BM this shift. Wears pull ups. Wears glasses. Lidoderm patch to right upper back. Patient will be going to [facility] today. Awaiting faciilty transport to [place] to arrive.
--- NOTE | 2016-09-09 15:42 | NUR ---
Discharge [facility] staff here to pick patient up for transport to their facility. Patient escorted in wheelchair to [facility] vehicle by their facility staff. Patient belongings sent with patient. Patient left in good condition.
[2016-09-10] MEDS ORDERED: LISINOPRIL 5 MG TABLET PO SCH (09:00)
--- NOTE | 2016-09-12 12:39 | DSPDOC ---
General Date Date DATE: 09/12/16 TIME: 12:33 Attending Physician Jatin Waller MD Admitting Physician Jatin Waller MD Consulting Physician Claudio Marquis MD Admitting Diagnosis encephalopathy, postconcussive syndrome, gait deficit, Scalp Lac Discharge Diagnosis encepuhalopathy, post concussive syndrome, head injury, improvement in cognition. History of Present Illness 86 yo female with post concussive sx, unable to return home to manage adl's. On 08/24, she fell and received a head laceration, was treated and [place] [facility] [place]rology and Hospitalist service treated her for Post Concussive sx. She is still weak, having some confusion and unable to manage her daily activities of living. Hospital Course 08/29/16 In light of previous fall, accompanied with new onset of right rib pain. Will obtain a chest x-ray with right rib films. Continue to encourage patient to participate in therapy for ongoing strengthening. Scalp mallorie can be removed tomorrow 08/30 Alliance for pain control 09/01/16 Continue with close needed for pain control. Do use sparingly as this does cause increased confusion. Incentive spirometry encourage hourly while awake. Discussed deep breathing and coughing to avoid pneumonia Miacalcin nasal spray and Ca with Vit D for Rib fracture pain. Continue to work on bowel motivation. Encourage work with PT and OT for ongoing strengthening 09/05/16 Continue with Alliance for pain control and Lidoderm patch. Use caution as increased narcotics may cause increased confusion. Continue to encourage incentive spirometry, deep breathing and coughing to avoid pneumonia. Given multiple rib fractures. Continue to work with PT and OT for ongoing strengthening. We'll recheck CBC and BMP on Sunday 09/10. Follow blood counts and electrolytes. 09/09/16: [place]. Recent fall with head injury, postconcussive syndrome and encephalopathy: * Continue to encourage therapies per Dr. Waller. * Provide safe and supportive environment. * Continue with oral Alliance and topical Lidoderm patch for pain control - avoid additional narcotics as they may contribute to her confusion. * Continue to monitor mentation. Acute rib fractures: * Continue to encourage hourly incentive spirometry for pulmonary toileting in light of rib fractures and increased risk for pneumonia. Hypertension: * Blood pressure remains elevated with systolic around 140-150. * Will initiate lisinopril 5mg daily and continue to monitor blood pressure closely. Chronic pain: * Continue pain control per Dr. Waller. Constipation: * Colace BID for ongoing bowel motivation Anemia: * Hgb decreased to 8.3 on 09/08/16. Patient remain asymptomatic. * Will continue to monitor closely and recheck in AM to monitor blood counts as new leukopenia noted (WBC 4.3). Problems: (1) Multiple fractures of ribs of right side Status: Acute Assessment & Plan: Pain managed with medication. Patient active, no rib belt. (2) Inability to perform activities of daily living Status: Acute Assessment & Plan: Limited by pain and by cognition. PT and OT worked with pt to increase FIM scores. ADL improved. (3) Encephalopathy Status: Acute Assessment & Plan: post concussive. Improving. (4) Postconcussive syndrome Status: Acute Assessment & Plan: Stable on d/c with improvement during admit. Pt having difficulty with remembering safety plan. (5) Scalp laceration Onset Date: ~ 08/26/2016 Status: Acute Assessment & Plan: mallorie removed, wound healing well. Code Status Do Not Resuscitate Home Meds Active Scripts Lidocaine (Lidoderm) 1 Each Adh..patch, 1 PATCH TOP DAILY for 30 Days Prov:HOWARD RUVALCABA APRN 09/09/16 Lidocaine (Lidoderm) 1 Each Adh..patch, 1 REMOVAL TOP 2100 for 30 Days Prov:HOWARD RUVALCABA APRN 09/09/16 Calcitonin,[place],Synthetic (Miacalcin) 30 Hamilton/3.7 Ml Hamilton, 1 SPRAY LENORA DAILY for 30 Days, ML Prov:HOWARD RUVALCABA APRN 09/09/16 Polyethylene Glycol 3350 (Healthylax) 17 Gm Powd.pack, 17 G PO DAILY for 30 Days Prov:HOWARD RUVALCABA APRN 09/09/16 Potassium Chloride (Klor-Con M20) 20 Meq Tablet, 20 MEQ PO WB for 30 Days, #30 TAB Prov:HOWARD RUVALCABA APRN 09/09/16 Calcium Carbonate/Vitamin D3 (Calcium 600 + Vit D 400 Tablet) 1 Each Tablet, 1 TAB PO BID for 30 Days, #60 TAB Prov:HOWARD RUVALCABA APRN 09/09/16 Lisinopril (Lisinopril) 5 Mg Tablet, 5 MG PO DAILY for 30 Days, #30 TAB Prov:HOWARD RUVALCABA Samia RELIABILITY SPECIALIST 09/09/16 Hydrocodone/Acetaminophen (Alliance 5-325 Tablet) 5-325 Tablet, 1 TAB PO Q6H Y for PAIN, #20 TAB 0 Refills Prov:TRISTON PUTNAM RELIABILITY SPECIALIST 09/09/16 Tramadol HCl (Tramadol HCl) 50 Mg Tablet, 50 MG PO QID Y for PAIN, #20 Prov:TRISTON PUTNAM RELIABILITY SPECIALIST 09/09/16 Magnesium Hydroxide/Al Hydrox (Mag-Al Liquid) 30 Ml Suspension, 30 ML PO Q3H Y for INDIGESTION, #1 BOTTLE Prov:CLAUDIO MARQUIS MD 08/26/16 Magnesium Hydroxide (Milk of Magnesia) 400 Mg/5 Ml Oral.susp, 30 ML PO DAILY Y for CONSTIPATION, #1 BOTTLE Prov:CLAUDIO MARQUIS MD 08/26/16 Docusate Sodium (Colace) 100 Mg Capsule, 100 MG PO BID, #30 CAP Prov:CLAUDIO MARQUIS MD 08/26/16 Calcium Carbonate (Tums) 200 Mg Tab.chew, 1000 MG PO PRN Y for DYSPEPSIA, #30 Prov:CLAUDIO MARQUIS MD 08/26/16 Bisacodyl (Bisacodyl) 10 Mg Supp.rect, 10 MG RECTALLY DAILY Y for CONSTIPATION, #30 Prov:CLAUDIO MARQUIS MD 08/26/16 Butalb/Acetaminophen/Caffeine (Nfzvkq-Wvarvppr-Ijqc 50-325-40) 1 Each Tablet, 1 TAB PO Q6HR Y for HEADACHE, #30 TAB Prov:CLAUDIO MARQUIS MD 08/26/16 Acetaminophen (Tylenol) 325 Mg Tablet, 325 MG PO Q5H Y for PAIN, #30 TAB Prov:CLAUDIO MARQUIS MD 08/26/16 Reported Medications Latanoprost (Latanoprost) 2.5 Ml Drops, 1 DROP BOTH EYES HS 08/23/16 Gabapentin (Gabapentin) 100 Mg Capsule, 200 MG PO HS 08/23/16 Discontinued Scripts Ondansetron HCl (Ondansetron HCl) 4 Mg Tablet, 4 MG PO Q6HR Y for NAUSEA, #10 TAB Prov:CLAUDIO MARQUIS MD 08/26/16 Ondansetron HCl/Pf (Ondansetron HCl 4 mg/2 ml Vial) 4 Mg/2 Ml Vial, 4 MG IV Q6H Y for NAUSEA &/OR VOMITING, #6 VIAL Prov:CLAUDIO MARQUIS MD 08/26/16 Face to Face Encounter I met with patient on the day of dismissal and discussed follow up appointments , medications, and safety plan. Discharge Disposition D/c to SNU temporarily. Copies To 1: NILSA HINOJOSA MD, CHARLES E MD Sep 12, 2016 12:36
== END 2016-09-09 15:40 | DRG 102 ==
PROVIDERS: ADMIT Family Medicine; ATTEND Family Medicine
PROC: F07Z9FZ Gait Training/Functional Ambulation Treatment using Assistive, Adaptive, Supportive or Protective Equipment (ICD-10-PCS; principal; 2016-08-26)
PROC: F07M6ZZ Therapeutic Exercise Treatment of Musculoskeletal System - Whole Body (ICD-10-PCS; 2016-08-26)
PROC: F08Z4ZZ Home Management Treatment (ICD-10-PCS; 2016-08-26)
DX: F07.81 Postconcussional syndrome (principal); G93.40 Encephalopathy, unspecified; N39.0 Urinary tract infection, site not specified; S22.41XA Multiple fractures of ribs, right side, initial encounter for closed fracture; R29.898 Other symptoms and signs involving the musculoskeletal system; I10 Essential (primary) hypertension; I73.9 Peripheral vascular disease, unspecified; E87.6 Hypokalemia; Z66 Do not resuscitate; W19.XXXA Unspecified fall, initial encounter; G89.29 Other chronic pain; M54.9 Dorsalgia, unspecified
CPT/HCPCS: 36415; 80048; 85025; 94664

== ENCOUNTER → 2016-09-30 | Outpatient (CLI) | payer MEDICARE ==
[~2016-09-30] MED LIST changes: +CALC-747 PO; +CALC3.7S NAS; +LIDO700A3 TOP; +LISI-625 PO; -ONDA-55 PO; -ONDA4VIA23 IV; +POLY17PO18 PO; +POTA20TA10 PO
--- NOTE | 2016-09-30 12:00 | DI ---
INDICATION: ITS.REASON: R05 COUGH PROCEDURE: CHEST 2-VIEWS UPRIGHT (PA \T\ LAT) Encounter: Initial COMPARISON: August 29, 2016 FINDINGS: The lungs are clear without evidence of focal abnormal airspace opacity. There is no pleural effusion or pneumothorax. The heart size, mediastinal contours and pulmonary vascularity are within normal limits. Healing right posterior rib fractures. IMPRESSION: No acute cardiopulmonary disease. .
[2016-09-30 12:10] LABS: BASOPHILS % (AUTO) 0.3 % (0-2); EOSINOPHILS # (AUTO) 0.1 T/MM3 (0-0.5); EOSINOPHILS % (AUTO) 0.6 % (0-4); HCT - HEMATOCRIT 32.9 % (36-46); HGB - HEMOGLOBIN 10.3 GM/DL (12-16); IMMATURE GRANULOCYTE # (AUTO) 0.12 T/MM3 (0.00-0.03); IMMATURE GRANULOCYTE % (AUTO) 1.5 % (0.0-0.5); LYMPHOCYTES # (AUTO) 0.9 T/MM3 (1-4.8); LYMPHOCYTES % (AUTO) 11.8 % (23-45); MEAN CORPUSCULAR HGB 27.5 UUG (26-34); MEAN CORPUSCULAR HGB CONC(MCHC 31.3 GM/DL (31-37); MEAN PLATELET VOLUME 10.8 UM3 (9.4-12.4); MONOCYTES # (AUTO) 1.7 T/MM3 (0-0.8); MONOCYTES % (AUTO) 21.7 % (0-9.0); NEUTROPHILS #(AUTO)-ABSOLUTE 5.1 T/MM3 (1.8-7.7); NEUTROPHILS % (AUTO) 64.1 % (33-66); RED BLOOD COUNT 3.74 M/MM3 (4.00-5.20); WBC - WHITE BLOOD COUNT 7.9 T/MM3 (4.5-11.0)
[2016-09-30 12:20] LABS: ALBUMIN 3.8 G/DL (3.5-5.0); ALBUMIN/GLOBULIN RATIO 1.4 RATIO (1.1-2.2); ALKALINE PHOSPHATASE 117 U/L (38-126); ALT (SGPT) 19 U/L (9-52); ANION GAP 14 MEQ/L (5-15); AST (SGOT) 16 U/L (14-36); BUN/CREATININE RATIO 20 RATIO (6-26); CALCIUM 9.1 MG/DL (8.4-10.2); CHLORIDE 102 MEQ/L (98-107); CO2 - CARBON DIOXIDE 24 MEQ/L (22-30); CREATININE 0.7 MG/DL (0.7-1.2); GLOMERULAR FILTRATION RATE 79; GLUCOSE 104 MG/DL (65-110); POTASSIUM 4.4 MEQ/L (3.6-5); SODIUM 140 MEQ/L (134-144); TOTAL PROTEIN 6.6 G/DL (6.3-8.2)
== END ==
LOC: IMA 11:19
PROVIDERS: ATTEND Family Medicine
DX: R05 Cough (principal)
CPT/HCPCS: 36415; 80053; 85025; 87486; 87581; 87633; 87798

== ENCOUNTER 2017-01-04 22:05 | Inpatient (IN) ==
[2017-01-04] MEDS ORDERED: PANTOPRAZOLE 40 MG INJECTION IVP ONE (22:10)
[2017-01-04] MEDS ORDERED: ONDANSETRON 4 MG/2 ML INJECTION IVP ONE (22:10)
--- NOTE | 2017-01-04 22:30 | Emergency Department Report ---
GI Bleed HPI - General Stated complaint: Vomiting Time Seen by Provider: 01/04/17 22:10 Source: patient, family Mode of arrival: EMS Limitations: no limitations - History of Present Illness HPI Narrative: 86 YO F brought to ED by EMS from [facility] with report of projectile vomiting of coffee ground emesis. EMS says when they arrived the staff had cleaned all the emesis up. There was only a small amount of blood in small in emesis that they witnessed. Patient arrives alert and oriented. Denies any pain or nausea. Patient does admitted to vomiting large amounts several times this evening. Patient states she did eat dinner this evening of baked beans, cottage cheese and chicken. Patient's daughter says that patient has had a low Hgb intermittently over past 2 months. Also has had heme positive stools. MD complaint: coffee ground emesis Onset (ago): hour(s) (1) Consistency: now resolved Associated symptoms: denies other symptoms - Related Data Home Medications Medication Instructions Recorded Confirmed Gabapentin 200 mg PO HS #0 08/23/16 01/05/17 Losartan [Cozaar] 50 mg PO DAILY 11/27/16 01/05/17 Mirtazapine [Remeron] 30 mg PO HS 11/27/16 01/05/17 Acetaminophen [Tylenol] 325 mg PO Q4H PRN 12/05/16 01/05/17 Dextromethorphan HBr [Robitussin] 60 mg PO BID PRN 12/05/16 01/05/17 Eucalyptus/Menthol [Cough Drops] 1 each MM Q2H PRN 12/05/16 01/05/17 guaiFENesin [Mucinex] 600 - 1,200 mg PO BID PRN 12/05/16 01/05/17 Previous Rx's Medication Instructions Recorded Bisacodyl 10 mg RECTALLY DAILY PRN #30 08/26/16 Butalb/Acetaminophen/Caffeine 1 tab PO Q6HR PRN #30 tab 08/26/16 [Fioricet] Calcium Carbonate [Tums] 1,000 mg PO PRN PRN #30 08/26/16 Docusate Sodium [Colace] 100 mg PO BID #30 cap 08/26/16 Mag-Al + Sim Oral Liq [Maalox Plus] 30 ml PO Q3H PRN #1 bottle 08/26/16 Tramadol HCl 50 mg PO QID PRN #20 09/09/16 Hydrocodone/APAP 5/325 [[place] 1 tab PO Q6H PRN #10 tablet 01/07/17 5/325] Hydrocodone/APAP 5/325 [[place] 1 tab PO Q6H PRN #14 tablet 01/07/17 5/325] Pantoprazole Tab [Protonix Tab] 40 mg PO ACBID #60 tablet 01/07/17 Sucralfate Oral Liq [Carafate 1 gm PO ACHS #120 udc 01/07/17 Slurry] Allergies Allergy/AdvReac Type Severity Reaction Status Date / Time sulfamethoxazole Allergy Unknown UNKNOWN Verified 11/27/16 01:53 trimethoprim Allergy Unknown Verified 11/27/16 01:54 Review of Systems All systems: reviewed and negative except as stated Gastrointestinal: Reports: as per HPI, vomiting, hematemesis PFSH Patient Stated Medical History Hearing Loss Yes: MILD Other HEENT Yes: GLASSES Heart Murmur Yes Hypertension Yes Other Cardiology Yes: PVD Gastroesophageal Reflux Yes Disease Gastrointestinal Bleeding Yes Other GI Yes: CONSTIPATION Hx Urinary Tract Infection Yes: CHRONIC Anemia Yes: iron deficient Osteoarthritis Yes Other Musculoskeletal Yes: RIB FX Depression Yes Surgical History: See list Family History: Noncontributory - Social History Smoking status: Never smoker Housing: [facility] Current occupational status: retired Physical Exam - Limitations Limitations: no limitations - General General appearance: alert, in no apparent distress - Normal Exams: Head:: Normocephalic without trauma Eyes:: Pupils are PERRLA w/ EOMI, No scleral icterus, irritation ENMT:: No facial trauma Neck:: Full range of motion, without adenopathy Chest/Respirations:: Clear all quezada, with good airflow, and symmetry bilaterally Cardiovascular:: Regular rate and rhythm Abdomen:: Bowel sounds positive, soft, non-tender, non-distended, no hepatosplenomegaly Musculoskeletal:: No tenderness, or deformity noted Integumentary:: No rashes Neurological:: Patient is alert, and oriented, cranial nerves, motor/sensory/ cerebellar, exams w/o gross deficits Psychiatric:: Patient exhibits, appropriate attention Course - Consultations Consultation #1: I discussed patient's HPI, PMH, labs, exam findings, VS, treatment in ED with Dr. Tilley. Dr. Tilley will admit patient. Time: 01:06 Vital Signs Temperature 98.7 F 01/04/17 22:05 Pulse Rate 84 01/04/17 22:05 Respiratory Rate 18 01/04/17 22:05 Blood Pressure 178/79 H 01/04/17 22:05 Pulse Oximetry 98 01/04/17 22:05 Temperature 97.6 F 01/07/17 12:20 Pulse Rate 64 01/07/17 16:50 Respiratory Rate 18 01/07/17 10:05 Blood Pressure 171/74 H 01/07/17 16:50 Pulse Oximetry 94 01/07/17 12:50 GI Bleed - [facility] Narrative Medical decision making narrative: Patient's history of coffee ground emesis concerning for GI bleed. Hgb 10, BUN 15. Patient is admitted observation status. Patient VS have remained stable with no additional emesis or report of abdominal pain. Additional Diff. Dx. Ulcer - Differential Diagnosis Likely: esophageal varices, gastritis, Mariposa-Hanson syndrome, Upper gastrointestinal hemorrhage - Medical Records Attestation: I reviewed the patient's medical records. - Lab Data Attestation: I reviewed the patient's lab results. Result diagrams: 01/07/17 04:42 01/07/17 04:42 Lab Results 01/04/17 01/04/17 01/05/17 Range/Units 23:20 23:20 05:35 WBC 5.5 (4.5-11.0) T/MM3 RBC 3.52 L (4.00-5.20) M/MM3 Hgb 10.0 L (12-16) GM/DL Hct 32.6 L (36-46) % MCV 92.6 (80-100) UM3 MCH 28.4 (26-34) UUG MCHC 30.7 L (31-37) GM/DL RDW Std Deviation 59.8 H (36.9-50.2) FL Plt Count 244 (130-400) T/MM3 MPV 10.5 (9.4-12.4) UM3 Immature Gran % (Auto) (0.0-0.5) % Neut % (Auto) (33-66) % Lymph % (Auto) (23-45) % Dodge % (Auto) (0-9.0) % Eos % (Auto) (0-4) % Baso % (Auto) (0-2) % Neut # (1.8-7.7) T/MM3 Lymph # (1-4.8) T/MM3 Dodge # (0-0.8) T/MM3 Eos # (0-0.5) T/MM3 Baso # (0-0.2) T/MM3 Abs Immat Gran (auto) (0.00-0.03) T/MM3 Neutrophils % (Manual) 62.0 (33-66) % Band Neutrophils % 0.0 (0-6) % Lymphocytes % (Manual) 17.0 L (23-45) % Reactive Lymphs % 20.0 H (0-0) % Monocytes % (Manual) 1.0 (0-9.0) % Neutrophils # (Manual) 3.4 (1.8-7.7) T/MM3 Band Neutrophils # 0.0 T/MM3 Lymphocytes # (Manual) 0.9 L (1-4.8) T/MM3 Abs React Lymphs (Man) 1.1 H (0-0) T/MM3 Monocytes # (Manual) 0.1 (0-0.8) T/MM3 RBC Morph Comment Normal INR (0.99-1.21) APTT (24-36) SEC Turbidity < 20 (0-20) Sodium 141 (134-144) MEQ/L Potassium 3.7 (3.6-5) MEQ/L Chloride 104 (98-107) MEQ/L Carbon Dioxide 27 (22-30) MEQ/L Anion Gap 10 (5-15) MEQ/L BUN 15.0 (7-17) MG/DL Creatinine 0.8 (0.7-1.2) MG/DL GFR Calculation 68 BUN/Creatinine Ratio 19 (6-26) RATIO Glucose 105 (65-110) MG/DL Calculated Osmolality 272 (261-280) MOSM/KG Calcium 8.8 (8.4-10.2) MG/DL Iron 27 L (37-170) UG/DL TIBC 257 L (261-497) UG/DL % Saturation 11 (9-55) % Total Bilirubin 0.40 (0.20-1.30) MG/DL Icterus Index < 2 (0-7) AST 20 (14-36) U/L ALT 25 (9-52) U/L Alkaline Phosphatase 75 (38-126) U/L Total Protein 5.8 L (6.3-8.2) G/DL Albumin 3.7 (3.5-5.0) G/DL Globulin 2.1 L (2.4-3.6) G/DL Albumin/Globulin Ratio 1.8 (1.1-2.2) RATIO Specimen Hemolysis < 15 (0-25) H. pylori IgG Antibody (<0.8) OD Ratio Blood Type Antibody Screen Crossmatch (AHG) 01/05/17 01/05/17 01/05/17 Range/Units 05:35 05:37 05:37 WBC 3.4 L (4.5-11.0) T/MM3 RBC 3.23 L (4.00-5.20) M/MM3 Hgb 9.1 L (12-16) GM/DL Hct 29.7 L (36-46) % MCV 92.0 (80-100) UM3 MCH 28.2 (26-34) UUG MCHC 30.6 L (31-37) GM/DL RDW Std Deviation 59.1 H (36.9-50.2) FL Plt Count 220 (130-400) T/MM3 MPV 10.7 (9.4-12.4) UM3 Immature Gran % (Auto) 0.9 H (0.0-0.5) % Neut % (Auto) 43.2 (33-66) % Lymph % (Auto) 29.7 (23-45) % Dodge % (Auto) 23.2 H (0-9.0) % Eos % (Auto) 2.1 (0-4) % Baso % (Auto) 0.9 (0-2) % Neut # 1.5 L (1.8-7.7) T/MM3 Lymph # 1.0 (1-4.8) T/MM3 Dodge # 0.8 (0-0.8) T/MM3 Eos # 0.1 (0-0.5) T/MM3 Baso # 0.0 (0-0.2) T/MM3 Abs Immat Gran (auto) 0.03 (0.00-0.03) T/MM3 Neutrophils % (Manual) (33-66) % Band Neutrophils % (0-6) % Lymphocytes % (Manual) (23-45) % Reactive Lymphs % (0-0) % Monocytes % (Manual) (0-9.0) % Neutrophils # (Manual) (1.8-7.7) T/MM3 Band Neutrophils # T/MM3 Lymphocytes # (Manual) (1-4.8) T/MM3 Abs React Lymphs (Man) (0-0) T/MM3 Monocytes # (Manual) (0-0.8) T/MM3 RBC Morph Comment INR (0.99-1.21) APTT (24-36) SEC Turbidity < 20 (0-20) Sodium 141 (134-144) MEQ/L Potassium 3.5 L (3.6-5) MEQ/L Chloride 108 H (98-107) MEQ/L Carbon Dioxide 26 (22-30) MEQ/L Anion Gap 7 (5-15) MEQ/L BUN 12.0 (7-17) MG/DL Creatinine 0.7 (0.7-1.2) MG/DL GFR Calculation 79 BUN/Creatinine Ratio 17 (6-26) RATIO Glucose 89 (65-110) MG/DL Calculated Osmolality 270 (261-280) MOSM/KG Calcium 8.4 (8.4-10.2) MG/DL Iron (37-170) UG/DL TIBC (261-497) UG/DL % Saturation (9-55) % Total Bilirubin (0.20-1.30) MG/DL Icterus Index < 2 (0-7) AST (14-36) U/L ALT (9-52) U/L Alkaline Phosphatase (38-126) U/L Total Protein (6.3-8.2) G/DL Albumin (3.5-5.0) G/DL Globulin (2.4-3.6) G/DL Albumin/Globulin Ratio (1.1-2.2) RATIO Specimen Hemolysis < 15 (0-25) H. pylori IgG Antibody 0.10 (<0.8) OD Ratio Blood Type Antibody Screen Crossmatch (AHG) 01/05/17 01/05/17 01/05/17 Range/Units 12:11 12:11 12:11 WBC (4.5-11.0) T/MM3 RBC (4.00-5.20) M/MM3 Hgb 8.7 L (12-16) GM/DL Hct 28.7 L (36-46) % MCV (80-100) UM3 MCH (26-34) UUG MCHC (31-37) GM/DL RDW Std Deviation (36.9-50.2) FL Plt Count (130-400) T/MM3 MPV (9.4-12.4) UM3 Immature Gran % (Auto) (0.0-0.5) % Neut % (Auto) (33-66) % Lymph % (Auto) (23-45) % Dodge % (Auto) (0-9.0) % Eos % (Auto) (0-4) % Baso % (Auto) (0-2) % Neut # (1.8-7.7) T/MM3 Lymph # (1-4.8) T/MM3 Dodge # (0-0.8) T/MM3 Eos # (0-0.5) T/MM3 Baso # (0-0.2) T/MM3 Abs Immat Gran (auto) (0.00-0.03) T/MM3 Neutrophils % (Manual) (33-66) % Band Neutrophils % (0-6) % Lymphocytes % (Manual) (23-45) % Reactive Lymphs % (0-0) % Monocytes % (Manual) (0-9.0) % Neutrophils # (Manual) (1.8-7.7) T/MM3 Band Neutrophils # T/MM3 Lymphocytes # (Manual) (1-4.8) T/MM3 Abs React Lymphs (Man) (0-0) T/MM3 Monocytes # (Manual) (0-0.8) T/MM3 RBC Morph Comment INR 1.18 (0.99-1.21) APTT 34.7 (24-36) SEC Turbidity (0-20) Sodium (134-144) MEQ/L Potassium (3.6-5) MEQ/L Chloride (98-107) MEQ/L Carbon Dioxide (22-30) MEQ/L Anion Gap (5-15) MEQ/L BUN (7-17) MG/DL Creatinine (0.7-1.2) MG/DL GFR Calculation BUN/Creatinine Ratio (6-26) RATIO Glucose (65-110) MG/DL Calculated Osmolality (261-280) MOSM/KG Calcium (8.4-10.2) MG/DL Iron (37-170) UG/DL TIBC (261-497) UG/DL % Saturation (9-55) % Total Bilirubin (0.20-1.30) MG/DL Icterus Index (0-7) AST (14-36) U/L ALT (9-52) U/L Alkaline Phosphatase (38-126) U/L Total Protein (6.3-8.2) G/DL Albumin (3.5-5.0) G/DL Globulin (2.4-3.6) G/DL Albumin/Globulin Ratio (1.1-2.2) RATIO Specimen Hemolysis (0-25) H. pylori IgG Antibody (<0.8) OD Ratio Blood Type Antibody Screen Crossmatch (AHG) 01/05/17 Range/Units 12:11 WBC (4.5-11.0) T/MM3 RBC (4.00-5.20) M/MM3 Hgb (12-16) GM/DL Hct (36-46) % MCV (80-100) UM3 MCH (26-34) UUG MCHC (31-37) GM/DL RDW Std Deviation (36.9-50.2) FL Plt Count (130-400) T/MM3 MPV (9.4-12.4) UM3 Immature Gran % (Auto) (0.0-0.5) % Neut % (Auto) (33-66) % Lymph % (Auto) (23-45) % Dodge % (Auto) (0-9.0) % Eos % (Auto) (0-4) % Baso % (Auto) (0-2) % Neut # (1.8-7.7) T/MM3 Lymph # (1-4.8) T/MM3 Dodge # (0-0.8) T/MM3 Eos # (0-0.5) T/MM3 Baso # (0-0.2) T/MM3 Abs Immat Gran (auto) (0.00-0.03) T/MM3 Neutrophils % (Manual) (33-66) % Band Neutrophils % (0-6) % Lymphocytes % (Manual) (23-45) % Reactive Lymphs % (0-0) % Monocytes % (Manual) (0-9.0) % Neutrophils # (Manual) (1.8-7.7) T/MM3 Band Neutrophils # T/MM3 Lymphocytes # (Manual) (1-4.8) T/MM3 Abs React Lymphs (Man) (0-0) T/MM3 Monocytes # (Manual) (0-0.8) T/MM3 RBC Morph Comment INR (0.99-1.21) APTT (24-36) SEC Turbidity (0-20) Sodium (134-144) MEQ/L Potassium (3.6-5) MEQ/L Chloride (98-107) MEQ/L Carbon Dioxide (22-30) MEQ/L Anion Gap (5-15) MEQ/L BUN (7-17) MG/DL Creatinine (0.7-1.2) MG/DL GFR Calculation BUN/Creatinine Ratio (6-26) RATIO Glucose (65-110) MG/DL Calculated Osmolality (261-280) MOSM/KG Calcium (8.4-10.2) MG/DL Iron (37-170) UG/DL TIBC (261-497) UG/DL % Saturation (9-55) % Total Bilirubin (0.20-1.30) MG/DL Icterus Index (0-7) AST (14-36) U/L ALT (9-52) U/L Alkaline Phosphatase (38-126) U/L Total Protein (6.3-8.2) G/DL Albumin (3.5-5.0) G/DL Globulin (2.4-3.6) G/DL Albumin/Globulin Ratio (1.1-2.2) RATIO Specimen Hemolysis (0-25) H. pylori IgG Antibody (<0.8) OD Ratio Blood Type O Positive Antibody Screen Negative Crossmatch (AHG) See Detail Disposition Clinical Impression: Coffee ground vomiting Disposition: 02 To [facility] Condition: Stable Time of Disposition: 01:22 - Seen By: midlevel
[2017-01-05] MEDS: SALINE FLUSH 10ml SYRINGE IVF PRN ×3 (01:00→01:05)
[2017-01-05] MEDS ORDERED: NS 1,000 ML IV SCH (01:30)
[2017-01-05] MEDS ORDERED: CALCIUM CARBONATE Chewable 500mg TABLET PO PRN (02:18)
[2017-01-05] MEDS ORDERED: HYDROCODONE/APAP 5mg/325mg TABLET PO PRN (02:18)
[2017-01-05] MEDS ORDERED: BISACODYL 10 MG SUPPOSITORY RECTALLY PRN (02:18)
[2017-01-05] MEDS ORDERED: ONDANSETRON 4 MG/2 ML INJECTION IVP PRN (02:18)
--- NOTE | 2017-01-05 02:20 | History & Physical Report ---
<TilleyMichael - Last Filed: 01/05/17 03:06> History of Present Illness Date: 01/05/17 Chief complaint: hematemesis HPI: 86 YO F w/ h/o chronic anemia, HTN, GERD, constipation and multiple other medical issues brought to ED by EMS from care home with report of projectile vomiting of ? coffee ground emesis after dinner. No bright red blood noted. Patient in ED per report was alert and oriented. Denied any abdominal pain or nausea. Patient did admit to vomiting two times this evening. Patient states she did eat dinner this evening of baked beans, cottage cheese and chicken. Patient denied HAs, denied chest pain, dyspnea and denied nausea and diarrhea; denied f/c/s, cough and shortness of breath. In ED, patient noted to have Hgb of 10, no further vomiting and no other complaints. Patient given IV Protonix in ED and started on IVFs that of NS at 75 cc/hour. Patient to be admitted to the Hospitalist service for further evaluation and management. Review of Systems Review of systems: 10 point ROS negative excpet for that as noted in the HPI PFSH Patient has h/o HTN, chronic anemia, constipation, GERD, PVD, Osteoarthritis Surgical History: See list - Social History Smoking status: Never smoker Current residence: Assisted Medications Home Medications Medication Instructions Recorded Confirmed Type Gabapentin 200 mg PO HS #0 08/23/16 01/05/17 History Ferrous Sulfate 325 mg PO DAILY 11/27/16 01/05/17 History Losartan [Cozaar] 50 mg PO DAILY 11/27/16 01/05/17 History Mirtazapine [Remeron] 30 mg PO HS 11/27/16 01/05/17 History Acetaminophen [Tylenol] 325 mg PO Q4H PRN 12/05/16 01/05/17 History Dextromethorphan HBr [Robitussin] 60 mg PO BID PRN 12/05/16 01/05/17 History Eucalyptus/Menthol [Cough Drops] 1 each MM Q2H PRN 12/05/16 01/05/17 History Hydrocodone/APAP 5/325 [[place] 1 tab PO Q6H PRN 12/05/16 01/05/17 History 5/325] guaiFENesin [Mucinex] 600 - 1,200 mg PO BID PRN 12/05/16 01/05/17 History Allergies Allergy/AdvReac Type Severity Reaction Status Date / Time sulfamethoxazole Allergy Unknown UNKNOWN Verified 11/27/16 01:53 trimethoprim Allergy Unknown Verified 11/27/16 01:54 Exam Vital Signs: Temperature 98.7 F 01/04/17 22:05 Pulse Rate 70 01/05/17 01:30 Respiratory Rate 16 01/05/17 01:30 Blood Pressure 120/59 01/05/17 01:30 Pulse Oximetry 95 01/05/17 01:30 Height: 1.63 m - Constitutional Present: no acute distress - Routine HEENT Exam Head: Present: normocephalic, atraumatic Eye: Present: EOMI, PERRL ENT: Present: mucous membranes dry - Routine Neck Exam Present: supple. Absent: JVD - Routine Respiratory Exam Present: CTA bilaterally. Absent: accessory muscle use, dyspnea, rales, respiratory distress, wheezes, crackles - Routine Cardiovascular Exam Present: RRR, S1, S2 - Routine Abdominal Exam Present: soft, normoactive bowel sounds, non distended. Absent: tenderness - Routine Extremities Exam Absent: cyanosis, clubbing, edema - Routine Neurological Exam Patient sleeping, wakes easily and answers questions, then falls back asleep. Patient wants to sleep at this time. Results - Labs CBC & Chem 7: 01/04/17 23:20 01/04/17 23:20 Assessment and Plan DVT Prophylaxis: SCD's GI Prophylaxis: Protonix Resuscitation Status: Do Not Resuscitate Assessment and Plan: 1) Acute hematemesis w/ concern for upper GI bleed 2) Acute on [place] Anemia 3) HTN 4) GERD 5) PVD 6) Osteoarthritis w/ chronic pain 7) Chronic constipation 8) PVD Plan: Admit to Hospitalist service Check CBC at 0600 Consider transfusion if needed Consider GI/Surgery consult if needed Clear liquid diet for now Continue home meds as indicated - awaiting official list from [place] Protonix 40mg IV q 12 hours NS at 75 cc/hour UA - not collected yet Labs in AM Patient desires to be a DNR - confirmed by ER provider through patient's daughter Hospital Course Summary Disclaimer: The visit summary below is not to be considered part of the above Progress Note. <Chelsey Mack - Last Filed: 01/05/17 12:20> History of Present Illness Date: 01/05/17 [facility] Patient Stated Medical History Hearing Loss Yes: MILD Other HEENT Yes: GLASSES Heart Murmur Yes Hypertension Yes Other Cardiology Yes: PVD Gastroesophageal Reflux Yes Disease Gastrointestinal Bleeding Yes Other GI Yes: CONSTIPATION Hx Urinary Tract Infection Yes: CHRONIC Anemia Yes: iron deficient Osteoarthritis Yes Other Musculoskeletal Yes: RIB FX Depression Yes Exam Vital Signs: Temperature 98.4 F 01/05/17 07:53 Pulse Rate 75 01/05/17 11:45 Respiratory Rate 14 01/05/17 11:45 Blood Pressure 134/67 01/05/17 11:45 Pulse Oximetry 92 01/05/17 11:45 Oxygen Delivery Method Room Air Height: 1.63 m Weight: 43.9 kg Results - Labs CBC & Chem 7: 01/05/17 05:37 01/05/17 05:37 Assessment and Plan Assessment and Plan: 01/05/2017-Dr. Mack I have reviewed the H&P above by Dr. Tilley. I have seen and examined the patient independently. I agree with H&P above, along with my additions below. Is obtained mostly from the patient's daughter Shanna who his DPOA. Patient has dementia. Chief complaint: dark emesis History of present illness: The patient is an 86-year-old female with history of anemia, iron deficiency and heme positive stool. Hemoglobin was as low as 8.1 in October. The patient was started on oral iron and her hemoglobin did improve. Dr. Santos is the patient's PCP and she talked with the patient's daughter and at that time they decided against colonoscopy or other workup for anemia because of the patient's age and dementia. Last night the patient had 2 episodes of emesis that were large and contained very dark material. She had not eaten anything that was discolored. There was no bright red blood seen. The patient does not have any abdominal pain. Her appetite has been okay. There is no history of stomach ulcers. The patient is not taking any NSAIDs or blood thinners. The patient has some chronic constipation issues. The patient has occasional episodes of substernal chest pain and occasionally feels like she is choking on food. Past medical history is significant for hypertension, iron deficiency anemia, constipation, GERD, peripheral vascular disease, osteoarthritis, rib fractures, frequent falls, left inguinal hernia for which she has not required surgery, depression, compression fractures, mild dementia Surgical history is significant for kyphoplasty, she is otherwise had no surgeries Family history: No GI cancers Medications and allergies as above Social history the patient is a nonsmoker and lives in a care home. She is DO NOT RESUSCITATE. She has not been walking for the past 6 weeks Comprehensive review of systems is somewhat difficult to obtain secondary to the patient's dementia. She has had lower extremity edema since the summer. Venous Doppler of the right leg was negative for DVT last month. She had a KUB last month showing possible fecal impaction. Otherwise cooperative review of systems is negative Physical exam GEN-alert, no acute distress HEENT-sclera anicteric, oropharynx is moist NECK-supple CV-regular rate and rhythm with a 4/6 systolic murmur CHEST-clear to auscultation bilaterally ABD-soft, nontender, nondistended with positive bowel sounds -no Dumont EXT-trace edema, SCDs are on NEURO-mild dementia, drowsy, moves all 4 extremities SKIN-warm and dry This morning hemoglobin is 9.1 down from 10. Potassium is 3.5. Otherwise, lab is essentially normal. Impression Acute hematemesis with concern for upper GI bleed. Acute on chronic iron deficiency anemia Mild hypokalemia Hypertension GERD Osteoarthritis with chronic pain Chronic constipation Dementia Dysphagia Plan I talked with the patient's daughter Shanna and she would like to consider EGD. Will consult Dr. Arellano to evaluate patient for possible EGD regarding upper GI bleed. Change to inpatient status. Monitor hemoglobin every 6 hours. Continue nothing by mouth. We'll add potassium to IV fluids. Will type and cross and hold 2 units of blood. Start Protonix drip. We'll consult speech to evaluate choking. We'll need to wait until she is no longer nothing by mouth to assess her swallow. Hospital Course Summary Disclaimer: The visit summary below is not to be considered part of the above Progress Note.
[2017-01-05] MEDS ORDERED: PANTOPRAZOLE 40 MG INJECTION IVP SCH (10:00)
[2017-01-05] MEDS: ACETAMINOPHEN 325 MG TABLET PO PRN ×2 (10:12→17:00)
[2017-01-05] MEDS: DOCUSATE SODIUM 100 MG CAPSULE PO SCH ×2 (10:14→21:54)
[2017-01-05] MEDS: FERROUS SULFATE 324 MG TABLET PO SCH (10:39)
[2017-01-05] MEDS ORDERED: NS FLUSH BAG 500ml IV PRN (12:03)
[2017-01-05 12:14] VITALS: BMI 16.6
[2017-01-05] MEDS ORDERED: PNEUMOCOCCAL 13 VACCINE 0.5ml INJECTION IM ONE (13:05)
[2017-01-05] MEDS: PANTOPRAZOLE IV 80 MG in NS 250ml 250 ML IV SCH (14:05)
[2017-01-05] MEDS: NS with KCL 20 mEq 1,000 ML IV SCH (14:06)
--- NOTE | 2017-01-05 16:40 | General Surgery Consult Note ---
Consult date: 01/05/17 Attending Physician: Chelsey Mack MD Reason for consult: endoscopy (hematemesis) PFS Patient Stated Medical History Dementia Yes Hearing Loss Yes: MILD Other HEENT Yes: GLASSES Heart Murmur Yes Hypertension Yes Other Cardiology Yes: PVD Gastroesophageal Reflux Yes Disease Gastrointestinal Bleeding Yes Other GI Yes: CONSTIPATION Hx Urinary Tract Infection Yes: CHRONIC Anemia Yes: iron deficient Osteoarthritis Yes Other Musculoskeletal Yes: RIB FX Depression Yes Surgical History: Kyphoplasty L4-L5. Moh's procedure Basal cell left Nare 03-06 Family History: daughter - breast cancer 2nd daughter - breast cancer, HTN brother - DM - Social History Smoking status: Never smoker Current residence: Detention ([facility]) Medications Home Medications Medication Instructions Recorded Confirmed Type Gabapentin 200 mg PO HS #0 08/23/16 01/05/17 History Ferrous Sulfate 325 mg PO DAILY 11/27/16 01/05/17 History Losartan [Cozaar] 50 mg PO DAILY 11/27/16 01/05/17 History Mirtazapine [Remeron] 30 mg PO HS 11/27/16 01/05/17 History Acetaminophen [Tylenol] 325 mg PO Q4H PRN 12/05/16 01/05/17 History Dextromethorphan HBr [Robitussin] 60 mg PO BID PRN 12/05/16 01/05/17 History Eucalyptus/Menthol [Cough Drops] 1 each MM Q2H PRN 12/05/16 01/05/17 History Hydrocodone/APAP 5/325 [[place] 1 tab PO Q6H PRN 12/05/16 01/05/17 History 5/325] guaiFENesin [Mucinex] 600 - 1,200 mg PO BID PRN 12/05/16 01/05/17 History Allergies Allergy/AdvReac Type Severity Reaction Status Date / Time sulfamethoxazole Allergy Unknown UNKNOWN Verified 11/27/16 01:53 trimethoprim Allergy Unknown Verified 11/27/16 01:54 Review of Systems 10-point ROS: negative except for HPI and the following: - Cardiovascular Cardiovascular: Present: other (murmur) - Musculoskeletal Musculoskeletal: Present: other (muscle weakness, has not been walking for several weeks.) - Vital Signs Last Vital Signs Temp 98.4 F 01/05/17 07:53 Pulse 75 01/05/17 11:45 Resp 14 01/05/17 11:45 BP 134/67 01/05/17 11:45 Pulse Ox 92 01/05/17 11:45 - Laboratory Result Diagrams: 01/05/17 12:11 01/05/17 05:37 General Surgery Results - Results Labs: 01/05/17 12:11 01/05/17 05:37 Hospital Course Summary Disclaimer: The visit summary below is not to be considered part of the above Progress Note. Sepsis Assessment - Evaluation Sepsis screening result: No Definite Risk
[2017-01-05] MEDS: SUCRALFATE 1gm/10ml ORAL LIQUID PO SCH ×2 (18:36→21:54)
--- NOTE | 2017-01-05 18:36 | Consultation ---
DATE OF CONSULTATION 01/05/2017 FINDINGS Mrs. Mcgee is a pleasant 86-year-old female whom I was asked to see as a result of her history for hematemesis and the finding of anemia upon laboratory evaluation. The patient's daughter was present this evening who did provide some of the history information. Apparently the patient lives in a nearby nursing facility. Last evening after supper the patient began to experience some vomiting. This patient's emesis looked somewhat coffee-ground in nature as if she had been bleeding and she was therefore brought to the emergency room for further evaluation. The patient does have a known recent history for anemia that was discovered upon laboratory evaluation. Upon questioning the patient and her daughter, the patient denies any history of noticing any darkness to her bowel movements. She denies any history for abdominal pain or discomfort. Denies any prior history for peptic ulcer disease in the past. Denies significant nonsteroidal use such as aspirin or ibuprofen. The patient has never undergone endoscopic evaluation of her stomach nor her colon throughout her life. Today the patient is requesting some coffee or tea. She is "hungry." PAST MEDICAL HISTORY, PAST SURGICAL HISTORY, MEDICATIONS, ALLERGIES, SOCIAL HISTORY, FAMILY HISTORY, REVIEW OF SYSTEMS Performed by my nurse practitioner, Roque Ayala APRN PHYSICAL EXAM GENERAL: The patient is an 86-year-old female who does not appear to be in acute distress. VITAL SIGNS: Temperature 98.4, pulse 75, respirations 14, blood pressure 134/67 , SAO2 92% on room air. HEENT: Normocephalic. Pupils are equally round and react to light and accommodation. NECK: Supple without lymphadenopathy. CHEST: Clear to auscultation bilaterally. HEART: Regular rate and rhythm. Normal S1 and S2 without gallops, murmurs or clicks. ABDOMEN: Visualization of the abdomen reveals it to be fairly scaphoid in its overall appearance. Palpation of the abdomen revealed it to be soft and completely nontender. There is no evidence for guarding or rebound. EXTREMITIES: Without clubbing, cyanosis, or edema. NEURO: Cranial nerves II-XII grossly intact. Patient is without focal motor or sensory deficits. LABORATORY/RADIOGRAPHIC EVALUATION Patient's hemoglobin was 10.0 last evening upon admission. Hemoglobin today is 8.7. CMP was obtained last evening and found to be essentially within normal limits. BUN was normal at 12.0 today. The patient's daughter informs me that the patient was recently found to be heme-positive. ASSESSMENT 86-year-old female with probable hematemesis secondary to peptic ulcer disease. PLAN Agree with current management of this patient. Patient is being treated currently empirically for peptic ulcer disease and is on a Protonix drip. Will go ahead and add Carafate to her medical management. Will go ahead and allow the patient to have clear liquids this evening. Will recheck hemoglobin tomorrow. Also will obtain a serum H. pylori. Pros and cons of proceeding with upper endoscopy/esophagogastroduodenoscopy were discussed with the patient and her daughter. At this time it was elected that we would not proceed with an EGD unless the patient would continue to become progressively more anemic in nature or develop additional hematemesis. Will continue to follow the patient closely. Would recommend that if her hemoglobin stabilizes and she does not develop any additional hematemesis that the patient be treated for a total of 12 weeks for suspected peptic ulcer disease. If H. pylori is positive will add antibiotics accordingly. MTDD
[2017-01-05] MEDS: GABAPENTIN 100 MG CAPSULE PO SCH (21:55)
[2017-01-05] MEDS: MIRTAZAPINE 30 MG TABLET PO SCH (21:55)
[2017-01-05] MEDS ORDERED: FALL RISK - PHARMACY CONSULT MC PRN (23:06)
[2017-01-06] MEDS: PANTOPRAZOLE IV 80 MG in NS 250ml 250 ML IV SCH ×2 (00:30→14:54)
[2017-01-06] MEDS: NS with KCL 20 mEq 1,000 ML IV SCH (03:01)
[2017-01-06] MEDS: SUCRALFATE 1gm/10ml ORAL LIQUID PO SCH ×4 (06:06→21:31)
[2017-01-06] MEDS: FERROUS SULFATE 324 MG TABLET PO SCH (09:20)
[2017-01-06] MEDS: DOCUSATE SODIUM 100 MG CAPSULE PO SCH ×2 (09:20→21:31)
[2017-01-06] MEDS: ACETAMINOPHEN 325 MG TABLET PO PRN (10:00)
--- NOTE | 2017-01-06 12:17 | Progress Note ---
Subjective: The patient states she is feeling very good today. She denies pain anywhere. She tolerated clear liquids. She denies further nausea or vomiting. 9 shortness of breath or chest pain. She states she would like to eat regular food. Hemoglobin has been fairly stable since yesterday. Objective Vital signs: Temperature 97.6 F 01/06/17 09:08 Pulse Rate 71 01/06/17 09:08 Respiratory Rate 18 01/06/17 09:08 Blood Pressure 144/69 H 01/06/17 09:08 Pulse Oximetry 94 01/06/17 09:08 Oxygen Delivery Method Room Air Height: 1.63 m Weight: 43.9 kg Body Mass Index: 16.6 Comments: GEN-alert, pleasant, no acute distress HEENT-oropharynx is moist NECK-supple CV-regular rate and rhythm CHEST-to auscultation bilaterally ABD-soft, nontender, nondistended with positive bowel sounds -no Dumont EXT-no edema NEURO-significant for generalized weakness, especially in the legs which is chronic SKIN-warm and dry and without rashes Results - Labs CBC & Chem 7: 01/06/17 11:07 01/06/17 06:46 Labs: Last hemoglobin is 9.0. Yesterday it ranged from 8.7-9.8. INR is normal at 1.18. PTT is 34.7 H. pylori is 0.1 which is considered to be in the negative range Assessment and Plan Assessment and Plan: 01/06/2017-Dr. Mack Impression Acute hematemesis with for upper GI bleed., Likely secondary to peptic ulcer disease Acute on chronic iron deficiency anemia-stable since yesterday morning Mild hypokalemia-resolved Hypertension-fair control GERD Osteoarthritis with chronic pain Chronic constipation Dementia Dysphagia Plan Fortunately, hemoglobin has stabilized with medical treatment including clear liquids, Carafate, Protonix. Dr. Arellano talked with the patient and her daughter yesterday and they decided for medical management and only to proceed with EGD if hemoglobin continued to drop. I discussed the patient with Dr. Arellano today, and he recommended advancing diet and switching to oral Protonix. Will cancel serial hemoglobins and recheck hemoglobin tomorrow. H pylori is negative Consult speech therapy regarding dysphagia which is a chronic issue Discussed today with case management. Probable discharge tomorrow if hemoglobin is stable. Sepsis Assessment - Evaluation Sepsis screening result: No Definite Risk Hospital Course Summary Disclaimer: The visit summary below is not to be considered part of the above Progress Note. Hospital Course: 01/05/2017 Impression Acute hematemesis with concern for upper GI bleed. Acute on chronic iron deficiency anemia Mild hypokalemia Hypertension GERD Osteoarthritis with chronic pain Chronic constipation Dementia Dysphagia Plan I talked with the patient's daughter Shanna and she would like to consider EGD. Will consult Dr. Arellano to evaluate patient for possible EGD regarding upper GI bleed. Change to inpatient status. Monitor hemoglobin every 6 hours. Continue nothing by mouth. We'll add potassium to IV fluids. Will type and cross and hold 2 units of blood. Start Protonix drip. We'll consult speech to evaluate choking. We'll need to wait until she is no longer nothing by mouth to assess her swallow. 01/06/17 12:20
--- NOTE | 2017-01-06 13:49 | Progress Note ---
DATE 01/06/2017 FINDINGS Mrs. Mcgee today was without complaints. She denied any element of abdominal pain. She had no further hematemesis per her report. She was questioning whether or not she could "go home." VITALS: Afebrile. Normotensive. Last recorded vitals include temperature 97.6 , pulse 71, respirations 18, blood pressure 144/69, SaO2 94% on room air. HEENT: Normocephalic. Pupils are equal, round and reactive to light and accommodation. CHEST: Clear to auscultation bilaterally. HEART: Regular rate and rhythm. Normal S1 and S2 without gallops, murmurs or clicks. ABDOMEN: Soft, completely nontender. No evidence for hepatomegaly or other abnormal masses. LABORATORY/RADIOGRAPH EVALUATION Overall, the patient's hemoglobin remains stable. Hemoglobin this morning was 9.0. BMP obtained and found to be without marked abnormalities. Serum H. pylori that has been obtained is still pending. IMPRESSION 86-year-old female with history for hematemesis and anemia most likely secondary to peptic ulcer disease. PLAN Continue with current treatment. I do believe we could likely DC the Protonix drip and place her on IV Protonix at this time. Will go ahead and advance diet to full liquids. Continue to check hemoglobin periodically. If the patient remains stable, I believe that she could be discharged likely tomorrow. DAWN
[2017-01-06] MEDS: PANTOPRAZOLE 40 MG TABLET PO SCH (17:24)
[2017-01-06] MEDS: MIRTAZAPINE 30 MG TABLET PO SCH (21:31)
[2017-01-06] MEDS: GABAPENTIN 100 MG CAPSULE PO SCH (21:31)
[2017-01-06] MEDS: SALINE FLUSH 10ml SYRINGE IVF PRN (22:28)
[2017-01-07] MEDS: PANTOPRAZOLE 40 MG TABLET PO SCH ×2 (06:16→17:03)
[2017-01-07] MEDS: SUCRALFATE 1gm/10ml ORAL LIQUID PO SCH ×3 (06:16→17:03)
[2017-01-07] MEDS: SALINE FLUSH 10ml SYRINGE IVF PRN (06:16)
[2017-01-07] MEDS ORDERED: IRON DEXTRAN COMPLEX 100mg/2ml INJECTION IV ONE (09:30)
[2017-01-07] MEDS: FERROUS SULFATE 324 MG TABLET PO SCH (09:42)
[2017-01-07] MEDS ORDERED: NS FLUSH BAG 500ml IV PRN (09:44)
--- NOTE | 2017-01-07 09:46 | Pharmacy Consult ---
Pharmacy Consult-[facility] - Consult Information IV IRON CONSULT: Put oral iron on hold per rehabilitation psychologist recommendation. Dx: Chronic Anemia: Will give TDI (Total Dose Infusion) over 4 hours. Actual body weight = 43.9kg Hgb Level = 8.7 g/dL Calculated Dosing weight = 54.7 kg (will use patient's weight as dosing weight) Total dose needed: 1200 mg (24 mL) Will give test dose of 25mg IV push over 30 seconds. Watch VS q 15 minutes x 1 hr. (watching for anaphylaxis, respiratory distress, hives.) If no reaction will give full dose in NS 500ml TRA 125ml/hr. Watch VS q 1 hr during infusion. Thank you.
[2017-01-07] MEDS: DOCUSATE SODIUM 100 MG CAPSULE PO SCH (09:51)
[2017-01-07] MEDS ORDERED: IRON DEXTRAN IV SCH (10:45)
[2017-01-07] MEDS ORDERED: NS IV SCH (10:45)
[2017-01-07 11:16] VITALS: RESP 18
[2017-01-07 12:39] VITALS: TEMP 97.6
--- NOTE | 2017-01-07 12:49 | Progress Note ---
DATE 01/07/2017 FINDINGS Ms. Mcgee this morning was in good spirits. She denied any element of abdominal pain. She has had no further hematemesis. VITALS: Temperature 97.6, pulse 66, respirations 16, blood pressure 139/73. HEENT: Normocephalic. Pupils are equal, round and reactive to light and accommodation. CHEST: Clear to auscultation bilaterally. HEART: Regular rate and rhythm. Normal S1 and S2 without gallops, murmurs or clicks. ABDOMEN: Palpation of the abdomen reveals it to be soft and nontender. I do not appreciate any evidence for hepatosplenomegaly or abnormal masses. LABORATORY/RADIOGRAPH EVALUATION The patient had a CBC today and her hemoglobin overall is stable at 8.7. It was 9.0 yesterday. ASSESSMENT 86-year-old female with history for hematemesis and finding of anemia upon laboratory evaluation. Most likely etiology is peptic ulcer disease. The patient has remained stable since initiation of empiric treatment for peptic ulcer disease. PLAN I do believe the patient could be discharged to home. Would recommend continued empiric treatment for peptic ulcer disease over the course of the next 10-12 weeks. I do see that her serum H. pylori was negative. MTDD
[2017-01-07 12:56] VITALS: O2SAT 94
[2017-01-07] MEDS: ACETAMINOPHEN 325 MG TABLET PO PRN (13:15)
--- NOTE | 2017-01-07 14:11 | Discharge Instructions ---
Discharge Plan - Med Rec/Dispo Referrals/Follow Up: Elsa Santos MD [Family Provider] - (In 1 week) Indu Instructions: Blood Transfusion (GEN) Prescriptions: New Sucralfate Oral Liq [Carafate Slurry] 1 gm PO ACHS #120 udc Pantoprazole Tab [Protonix Tab] 40 mg PO ACBID #60 tablet Hydrocodone/APAP 5/325 [[place] 5/325] 1 tab PO Q6H PRN #10 tablet PRN Reason: Pain Continue Butalb/Acetaminophen/Caffeine [Fioricet] 1 tab PO Q6HR PRN #30 tab PRN Reason: HEADACHE Calcium Carbonate [Tums] 1,000 mg PO PRN PRN #30 PRN Reason: DYSPEPSIA Docusate Sodium [Colace] 100 mg PO BID #30 cap Mag-Al + Sim Oral Liq [Maalox Plus] 30 ml PO Q3H PRN #1 bottle PRN Reason: INDIGESTION Tramadol HCl 50 mg PO QID PRN #20 PRN Reason: PAIN Mirtazapine [Remeron] 30 mg PO HS Losartan [Cozaar] 50 mg PO DAILY Eucalyptus/Menthol [Cough Drops] 1 each MM Q2H PRN PRN Reason: Cough Dextromethorphan HBr [Robitussin] 60 mg PO BID PRN PRN Reason: Cough Acetaminophen [Tylenol] 325 mg PO Q4H PRN PRN Reason: PAIN Hydrocodone/APAP 5/325 [[place] 5/325] 1 tab PO Q6H PRN #14 tablet PRN Reason: Pain Gabapentin 200 mg PO HS #0 Bisacodyl 10 mg RECTALLY DAILY PRN #30 PRN Reason: CONSTIPATION guaiFENesin [Mucinex] 600 - 1,200 mg PO BID PRN PRN Reason: Cough Discontinued Ferrous Sulfate 325 mg PO DAILY Discharge Instructions/Outpatient Orders: Final Provider Discharge Instructions Location: Determined By Patient - Disposition 04 To [facility] Home/Facility
--- NOTE | 2017-01-07 14:20 | Extended Care Facility Orders ---
Admission Orders Admit to:: [facility] Allergies/Adverse Reactions: Allergies sulfamethoxazole Allergy (Unknown, Verified 11/27/16 01:53) UNKNOWN trimethoprim Allergy (Unknown, Verified 11/27/16 01:54) Admitting Diagnosis: Hematemesis Admitting Physician: Chelsey Mack MD Attending Physician: Chelsey Mack MD Code Status: Do Not Resuscitate Anticiapted Length of Stay: greater than 30 days Rehab Potential: fair Rehab Prognosis: fair Diet: 01/06/17 Dinner Regular Diet [DIET] Diet Modifications: soft diet Fluid Consistency: REGLIQU Food Consistency: CHMEAT Other Diet Modifiers: SOFT May use Facility Protocol or Standing Orders: Yes May have flu vaccine: Yes Evaluations/Treatment: Speech, PT, OT Jail Certification: I certify that SNF services are required to be given on an Inpatient basis because of the patients need for fci care on a continuing basis for the condition(s) for which he/she received inpatient hospital services prior to his/her transfer to the SNF. SNF inpatient care is necessary for the following reasons - Additional Information Laboratory/Radiology: CBC for diagnosis of anemia and basic metabolic profile for hypokalemia and med monitoring on Thursday, January 12. Please send results to Dr. Elsa Santos Referrals: Elsa Santos MD [Family Provider] - (In 1 week)
--- NOTE | 2017-01-07 14:28 | Discharge Summary ---
Discharge Information Date of admission: 01/05/17 12:21 Attending Physician: Chelsey Mack MD Primary care physician: Elsa Santos MD Consults: Dr. Praveen Arellano regarding upper GI bleed - Procedures Procedures: None - Laboratory Labs: 01/07/17 04:42 01/07/17 04:42 Hemoglobin was 10 on admission Iron was 27 on admission with percent sat borderline low at 11 Liver enzymes were essentially normal INR was 1.18. PTT 34.7 H. pylori IgG antibody was in the negative range History of Present Illness HPI: The patient is an 86-year-old female with history of anemia, iron deficiency and heme positive stool. Hemoglobin was as low as 8.1 in October. The patient was started on oral iron and her hemoglobin did improve. Dr. Santos is the patient's PCP and she talked with the patient's daughter and at that time they decided against colonoscopy or other workup for anemia because of the patient's age and dementia. Last night the patient had 2 episodes of emesis that were large and contained very dark material. She had not eaten anything that was discolored. There was no bright red blood seen. The patient does not have any abdominal pain. Her appetite has been okay. There is no history of stomach ulcers. The patient is not taking any NSAIDs or blood thinners. The patient has some chronic constipation issues. The patient has occasional episodes of substernal chest pain and occasionally feels like she is choking on food. Objective Vital signs: Temperature 97.6 F 01/07/17 12:20 Pulse Rate 68 01/07/17 12:50 Respiratory Rate 18 01/07/17 10:05 Blood Pressure 162/76 H 01/07/17 12:50 Pulse Oximetry 94 01/07/17 12:50 Oxygen Delivery Method Room Air Weight: 43.9 kg Hospital Course This is a general summary of the patient's hospital course. For more details refer to the complete medical record. Hospital course: Patient was admitted on the evening of 01/04/2017 with hematemesis thought to be secondary to upper GI bleed. The patient was started on IV fluids and serial hemoglobins were initiated. The patient was placed on IV Protonix. Dr. Arellano was consulted for possible EGD. Fortunately, the patient's hemoglobin stabilized in the 8.7-[address] Arellano and I both spoke with the patient's daughter who is DPOA and with the patient's apparent cessation of bleeding, we ultimately decided against EGD. H. pylori testing was negative. The patient tolerated advancement from clear liquid diet to soft diet with chopped meats without difficulties. The patient did see speech therapy regarding her intermittent dysphasia and speech therapy recommended soft diet with chopped meats and regular liquids. On 01/07/2017 it was felt patient was stable for dismissal back to her residential. She was alert and in no acute distress. Chest was clear to auscultation. Cardiovascular revealed a regular rate and rhythm. Abdomen was soft and nontender. Extremities were free of edema. Her losartan was held during the hospital course because of her GI bleed, but this can be restarted in the residential. Regarding treatment of suspected peptic ulcer disease, she will be discharged on Protonix 40 mg twice a day and Carafate 4 times a day. Her Protonix can likely be decreased to once a day after [address] Arellano did recommend a 10-12 week treatment course with Protonix and Carafate for peptic ulcer disease. Her H. pylori testing was negative. Regarding iron deficiency, the patient was treated with IV iron during this hospital course. Her oral iron was discontinued. Her other home medications were continued. Recommend repeat CBC for anemia and basic metabolic profile for mild hypokalemia and medication monitoring on 01/12/2017. Follow-up with Dr. Santos in 1 week. Greater than 30 minutes of time was spent on dismissal day today. Discharge Plan - Med Rec/Dispo Referrals/Follow Up: Elsa Santos MD [Family Provider] - (In 1 week) [facility] Instructions: Blood Transfusion (GEN) Prescriptions: New Sucralfate Oral Liq [Carafate Slurry] 1 gm PO ACHS #120 udc Pantoprazole Tab [Protonix Tab] 40 mg PO ACBID #60 tablet Hydrocodone/APAP 5/325 [[place] 5/325] 1 tab PO Q6H PRN #10 tablet PRN Reason: Pain Continue Butalb/Acetaminophen/Caffeine [Fioricet] 1 tab PO Q6HR PRN #30 tab PRN Reason: HEADACHE Calcium Carbonate [Tums] 1,000 mg PO PRN PRN #30 PRN Reason: DYSPEPSIA Docusate Sodium [Colace] 100 mg PO BID #30 cap Mag-Al + Sim Oral Liq [Maalox Plus] 30 ml PO Q3H PRN #1 bottle PRN Reason: INDIGESTION Tramadol HCl 50 mg PO QID PRN #20 PRN Reason: PAIN Mirtazapine [Remeron] 30 mg PO HS Losartan [Cozaar] 50 mg PO DAILY Eucalyptus/Menthol [Cough Drops] 1 each MM Q2H PRN PRN Reason: Cough Dextromethorphan HBr [Robitussin] 60 mg PO BID PRN PRN Reason: Cough Acetaminophen [Tylenol] 325 mg PO Q4H PRN PRN Reason: PAIN Hydrocodone/APAP 5/325 [[place] 5/325] 1 tab PO Q6H PRN #14 tablet PRN Reason: Pain Gabapentin 200 mg PO HS #0 Bisacodyl 10 mg RECTALLY DAILY PRN #30 PRN Reason: CONSTIPATION guaiFENesin [Mucinex] 600 - 1,200 mg PO BID PRN PRN Reason: Cough Discontinued Ferrous Sulfate 325 mg PO DAILY Discharge Instructions/Outpatient Orders: Final Provider Discharge Instructions Location: Determined By Patient - Disposition 01 Discharged Home, Self-Care
[2017-01-07 16:56] VITALS: BP 171/74; PULSE 64
[2017-01-07] MEDS ORDERED: LOSARTAN 50 MG TABLET PO SCH (17:00)
== END 2017-01-07 17:25 | DRG 378 ==
LOC: ED 22:05 → SRG 22:05
PROVIDERS: ADMIT Internal Medicine; ATTEND Internal Medicine